=== PATIENT | male | born 1990 | race Caucasian/White ===

== ENCOUNTER 2024-11-01 13:08 | Inpatient (IN) | payer MEDICAID, SELFPAY ==
[2024-11-01] VITALS (7 sets, daily range): BP systolic 131–178; BP diastolic 97–112; PULSE 57–78; RESP 16–98; TEMP 35.6–36.6; O2SAT 94–99; BMI 27.3
--- NOTE | 2024-11-01 | XR_ITS ---
Examination: MRI brain without intravenous contrast. Date and time of exam: November 01, 2024 1414 hours INDICATIONS: CT stroke alert today, onset right-sided facial weakness numbness facial droop Technique: Multiple axial and sagittal images of the brain obtained. Siemens high-resolution 1.5 April short bore scanners utilized. Sagittal sections, T1-weighted, TR 500, TE 14, are performed. Axial sections proton-density and T2-weighted have been obtained. Inversion recovery axial images, TR 9, 260, TE 111, TI 2500. Diffusion weighted images, axial sections, TR 4800, TE 128, B value 1000 Axial sections, ADC map, TR 4800, TE 128 Findings: Enlargement of the sella turcica is not present. The optic chiasm and infundibular are not remarkable. Prepontine and interpeduncular cisterns are not enlarged. There is no localized enlargement of the medulla or sagar. Fourth ventricle and cerebellar tonsils appear normal in position. No subacute area of hemorrhage density is seen. Mass in the cerebellopontine angle region is not evident. Globes symmetrical. Orbital musculature including medial lateral rectus muscles do not exhibit abnormality. Diffusion-weighted images demonstrate no focus of restricted diffusion. Increased white matter signal not seen Mass effect upon the ventricular system is not identified. Impression: Negative for acute hemorrhage mass effect or midline shift No acute infarct No MR findings diagnostic for demyelinating disease
--- NOTE | 2024-11-01 13:10 | PC.NURSE ---
BIBA due to when patient woke up from nap at 1220 with dizziness, diaphoretic, lightheaded, and off balanced leaning to R side during per EMS. Dr. Jani Hua tele neurologist assessing patient at this time.
--- NOTE | 2024-11-01 13:11 | XR_ITS ---
Examination: AP chest single view Technique one AP portable semiupright chest single view Date and time: November 01, 2024 1515 hours INDICATIONS: Stroke alert, shortness of breath today. FINDINGS: Normal heart size. No aspiration pneumonia The osseous structures are intact IMPRESSION: Negative for aspiration pneumonia
--- NOTE | 2024-11-01 13:11 | XR_ITS ---
Examination: CT brain head without contrast. 2-D sagittal coronal reconstructions Date and time of exam:November 01, 2024 1318 hours INDICATIONS: Stroke alert, onset focal neurologic deficit, right-sided facial droop numbness slurred speech beginning 30 minutes ago CTDI: vol (mGy):49.6 DLP: (mGycm):1002 Technique: Multiple CT axial sections of the brain have been obtained, 5 mm slice thickness. Contrast has not been administered. 2-D sagittal, coronal reconstructions have been obtained Low dose protocols were performed. One or more of the following dose reduction techniques were used; automated exposure control, adjustment of the mA and/or KV according to patient size, use of iterative reconstruction technique. Findings: No significant ventricular enlargement. Suspicious for early infarct 11 mm in the right occipital lobe axial image 18 Intra-axial or extra-axial hemorrhage density is not seen. No mass effect or midline shift Basal cisterns are not remarkable. Fourth ventricle is midline. Cranial vault intact. Impression: Negative for acute hemorrhage, mass effect or midline shift Suspicious for early infarct in the right occipital lobe
--- NOTE | 2024-11-01 13:11 | XR_ITS ---
Examination: CTA carotids with intravenous contrast CTA brain, head with intravenous contrast. 2-D sagittal, coronal reconstructions. 3-D reconstructions. Exam date and time: November 01, 2024 1321 hours INDICATIONS: Stroke alert, onset right-sided facial droop numbness slurred speech beginning 30 minutes ago CTDI: vol (mGy) 37 DLP: (mGycm) 501 Technique: Multiple CTA axial brain, head carotid images post intravenous contrast injection 75 cc, Isovue-370. 2-D sagittal, coronal reconstructions. 3-D reconstructions, 3-D post processing including vascular maximum intensity projection images. Low dose protocols were performed. One or more of the following dose reduction techniques were used; automated exposure control, adjustment of the mA and/or KV according to patient size, use of iterative reconstruction technique. Findings: 4 mm left thyroid nodule No common carotid carotid bifurcation or internal carotid artery significant stenoses Dominant left vertebral artery with no significant stenoses No cerebral large vessel arterial occlusions or thrombus IMPRESSION: No significant neck arterial stenoses No cerebral large vessel arterial occlusions
--- NOTE | 2024-11-01 13:11 | EKG_ITS ---
[facility], [place] Test Date: 2024-11-01 Pat Name: KIRSTIE BLANCO Department: Room: - Gender: Male Shoe Shiner: : 1990 Requested By: Richar Chambers Order Number: [id number] Reading MD: Richar Chambers Measurements Intervals [place] Rate: 65 P: 43 SD: 170 QRS: 70 QRSD: 106 T: 62 QT: 427 QTc: 445 Interpretive Statements SINUS RHYTHM INCOMPLETE RIGHT BUNDLE BRANCH BLOCK [90+ ms QRS DURATION, TERMINAL R IN V1/V2, 40+ ms S IN I/aVL/V4/V5/V6] No previous ECG available for comparison /store/S0/[id number]/ecg/[id number].pdf
[2024-11-01 13:30] LABS: Base Excess, Venous 2 (-3-3); O2 Saturation, Venous 88 % (96-97); PCO2, Venous 42 mmHg (36-56); PO2, Venous 50 mmHg (15-58); pH, Venous 7.42 (7.33-7.66)
[2024-11-01 13:31] LABS: Lactate (Lactic Acid) 1.7 mMol/L (0.4-2.0)
[2024-11-01 13:32] LABS: Basophils % (Auto) 0 % (0-2.5); Eosinophils # (Auto) 0.2 Thou/mm3 (0.0-0.5); Eosinophils % (Auto) 2 % (0-10); Hematocrit 47.3 % (41.0-53.0); Hemoglobin 17.1 g/dL (13.5-16.0); Immature Granulocytes % (Auto) 0 % (0-0); Immature Granulocytes Auto 0.01 Thou/mm3 (0.00-0.00); Lymphocytes # (Auto) 2.6 Thou/mm3 (1.0-4.8); Lymphocytes % (Auto) 34 % (10-50); Mean Corpuscular HGB Conc 36.2 g/dl (31.0-37.0); Mean Corpuscular Hemoglobin 30.9 pg (25.0-35.0); Mean Corpuscular Volume 86 fL (80-100); Monocytes # (Auto) 0.9 Thou/mm3 (0.0-0.8); Monocytes % (Auto) 11 % (0-12); Neutrophils # (Auto) 4.2 Thou/mm3 (1.8-7.7); Neutrophils % (Auto) 53 % (37-80); Nucleated Red Blood Cell % 0 /100 WBC (0); Platelet Count 365 Thou/mm3 (140-440); RDW Standard Deviation 36.2 fL (35.1-43.9); Red Blood Count 5.53 Miln/mm3 (4.50-5.90); White Blood Count 7.9 Thou/mm3 (3.8-10.6)
--- NOTE | 2024-11-01 13:32 | EDNOTE_ITS ---
ED General RME/HPI General Chief complaint: Neuro Symptoms/Deficit Stated complaint: STROKE Time Seen by Provider: 11/01/24 13:10 Arrival date/time: 11/01/24 13:08 RME / HPI RME / HPI narrative: DR. 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 Per EMS, patient was off balance leaning to the right. Patient has right sided weakness. Last well known time is 6 AM, per tele neurologist. Related Data Previous Rx's ?Medication ?Instructions ?Recorded albuterol sulfate 90 mcg/actuation 2 puff inhalation Q 4HR PRN dyspnea 05/06/17 aerosol inhaler (ProAir HFA) #1 inh ibuprofen 600 mg tablet 600 mg PO Q6HR PRN PAIN #40 tabs 05/06/17 acetaminophen-caffeine 500 mg-65 1 tab PO Q6H PRN pain #30 tabs 01/27/23 mg tablet (Excedrin Tension Headache) ibuprofen 600 mg tablet 600 mg PO Q6H #30 tabs 01/27 naproxen 500 mg tablet 500 mg PO BID PRN pain #30 t abs 06/01/23 Allergies Allergy/AdvReac Type Severity Reaction Status Date / Time No Known Allergies Allergy Verified 01/27/23 08:30 Review of Systems Review of Systems Systems Reviewed: All systems reviewed, normal except as documented Narrative Review of Systems: Constitutional: POSITIVES: diaphoresis, light-headedness DENIES: fevers; Eyes: DENIES: loss of vision; Head/Ear/Nose: DENIES: loss of hearing. Throat: DENIES: dysphagia. Cardiovascular: DENIES: chest pain, dyspnea, or syncope. Respiratory: DENIES: shortness of breath; Gastrointestinal: POSITIVES: nausea and vomiting DENIES: rectal bleeding or melena. Genitourinary: DENIES: dysuria (painful or difficult urination); Musculoskeletal: DENIES: arthralgia (pain in a joint); Skin: DENIES: rash; Neurological: POSITIVES: vertigo, right sided weakness Psychiatric: DENIES: recent major life stressor, emotional problem, illicit drug use or abuse; Endocrinology: DENIES: weight change,; Hematologic/Lymphatic: DENIES: abnormal bruising. Allergic/Immunologic: DENIES: urticaria (hives). Past Medical History Social History SMOKING STATUS: Never smoker SUBSTANCE USE: does not use ALCOHOL: Never ED Exam Narrative Physical exam: Physical Exam: General: The vital signs were reviewed. The patient is non-toxic, in no apparent distress and appears healthy with a patent airway, no respiratory distress and has no apparent circulatory problems. Head & Scalp: Normocephalic, atraumatic. Face: Appears normal and is without lesions, deformity. Ears: Left external pinna appears normal. Right external pinna appears normal. Eyes: Patient has obvious Systane nystagmus when looking to the left and some vertical nystagmus patient gets incredibly nauseated and wants to almost vomit with minimal testing. The sclera is anicteric. No obvious photophobia. The Left and Right Orbit/Lid/Conjunctiva appears normal without swelling, discoloration or injection. Nose: The nose is without deformity, discharge or tenderness; Throat: Appears normal. The mucous membranes are pink and moist without exudates, redness or mass seen. The tongue appears normal. Neck: The neck is supple and no apparent mass or adenopathy. Chest: The chest wall is normal in size and symmetry and has no chest wall tend erness or crepitus. The patient displays normal ventilator effort without retractions, accessory muscle use and has adequate air movement bilaterally with no wheezes and no rales. Cardiovascular: Regular rate and rhythm; No murmurs, rubs, or gallops; Gastrointestinal: The abdomen appears normal. No obvious hernias or mass. The abdomen is soft and benign, non-distended, with no pain, no guarding and no rebound tenderness. Bowel sounds are present and normal sounding. No CVA tenderness. Genitourinary: Back/Spine: Normal inspection Extremities/Musculoskeletal/lymphatic: The bilateral upper and lower extremities are warm. There is no evidence of arterial insufficiency. There is no evidence of venous insufficiency/edema. The patient spontaneously moves bilateral upper and lower extremities with no pain and no limitation of movement. There is no apparent, injury or trauma. Skin: The skin is warm, dry and intact. No rashes. No petechia. No purpura. No abnormal bruising. The color is appropriate with no cyanosis. Mental status/Psychiatric: Mental status is appropriate for age. The patient has no apparent delusions, visual hallucinations, no apparent audible hallucinations. The patient has no apparent suicidal thoughts/ideation and no apparent homicidal thoughts/ideation. Neurological: The patient is awake, alert, interactive, cordial, cooperative and is oriented to name and situation. The patient follows commands and answers historical question with no impairment. There is questionable diplopia when doing various gaze maneuvers. He does not tolerate this well as the nystagmus interrupts with both horizontal and vertical component. The bilateral upper and lower extremities have normal strength, normal range of motion and normal functioning. He does not appear any focal motor deficits but he is too incapacitated by his symptoms to do any formal walking or dysmetria testing. 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 Care 11/01/24 13:11 Active Continuous Pulse Oximetry NOW Care 11/01/24 13:11 Completed EKG (ED ONLY) *Do not use* NOW Care 11/01/24 13:11 Completed In and Out Catheter NEEDED Care 11/01/24 13:11 Active Insert IV NOW Care 11/01/24 13:11 Active MRI Screening NOW Care 11/01/24 13:59 Active NIH Stroke Scale now Care 11/01/24 13:11 Active NPO NOW Care 11/01/24 13:11 Active Nurse Swallow Screen x1 Care 11/01/24 13:11 Active Consult to Neurology / Tele-Neurology Routine Cons 11/01/24 13:[address] angio stroke protocol Stat Exams 11/01/24 13:[address] stroke protocol Stat Exams 11/01/24 13:11 Completed EKG (ED Only) Stat Exams 11/01/24 13:11 Draft MR head/brain wo con Stat Exams 11/01/24 Completed XR chest 1V portable Stat Exams 11/01/24 13:11 Completed Blood Culture (Lab) Stat Lab 11/01/24 13:57 Received CBC Stat Lab 11/01/24 13:20 Completed Comprehensive Metabolic Panel Stat Lab 11/01/24 13:20 Completed Drug Screen,Urine Stat Lab 11/01/24 16:44 Completed HCG Titer if Positive Stat Lab 11/01/24 13:20 Completed Lactate (Lactic Acid) Stat Lab 11/01/24 13:20 Completed Magnesium Stat Lab 11/01/24 13:20 Completed Partial Thromboplastin Time Stat Lab 11/01/24 13:20 Completed Prothrombin Time with INR Stat Lab 11/01/24 13:20 Completed Troponin I Stat Lab 11/01/24 13:20 Completed Urinalysis Stat Lab 11/01/24 16:44 Received Urine Culture Stat Lab 11/01/24 16:44 Received Venous Blood Gas Stat Lab 11/01/24 13:20 Completed Aspirin Chew Med 11/01/24 13:57 Discontinued 81 mg PO X1 ONE Aspirin [Ecotrin] Med 11/01/24 16:01 Discontinued 81 mg PO X1 ONE Clopidogrel [Plavix] Med 11/01/24 13:57 Discontinued 300 mg PO X1 ONE LORazepam [Ativan Inj] Med 11/01/24 17:06 Discontinued 0.5 mg IVP X1 ONE Ondansetron Inj [Zofran Inj] Med 11/01/24 13:11 Active 4 mg IV Q4HR PRN Sodium Chloride 0.9% 500 ml [Ns] 500 ml Med 11/01/24 16:00 Active IV 150 mls/hr Oxygen Delivery NOW RT 11/01/24 13:11 Active Vital Signs Vital signs: Vital Signs Pulse Rate 62 11/01/24 13:11 Respiratory Rate 18 11/01/24 13:11 Discharge Plan Plan Patient Disposition: Admit Acute Care w/in Hospital Discharge Disposition comment: Hospitalist admit Dr Hill to consult Prescriptions/Referrals Prescriptions/Med Rec: No Action ibuprofen 600 MG tablet 600 mg PO Q6HR PRN (Reason: PAIN) Qty: 40 0RF albuterol sulfate [ProAir HFA] 8.5 GM HFA aerosol inhaler 2 puff Inhalation Q4HR PRN (Reason: dyspnea) Qty: 1 0RF Rx Instructions: any albuterol ok; dispense with spacer naproxen 500 mg tablet 500 mg PO BID PRN (Reason: pain) Qty: 30 0RF Excedrin Tension Headache 500-65 mg tablet 1 tab PO Q6H PRN (Reason: pain) Qty: 30 0RF ibuprofen 600 mg tablet 600 mg PO Q6H Qty: 30 0RF Referrals: Steve Ortega MD [Primary Care Provider] - In 1 week Problem List Clinical Impression: Vertigo, Intractable vomiting Patient/Caregiver Discharge Instructions Print Language: Cook Islander Stand Alone Forms: Ginny Award Info., Patient Portal Info Letter MDM Narrative [facility] hospital course: I, Frieda Zendejas, am scribing for and in the presence of Dr. Hernandez. Stroke alert was called soon after arrival patient went to the CT scanner and when getting his CTA he was vomiting more so I did give some Zofran over there. Teleneurologist later called back did not feel the patient was a tPA candidate as his symptoms were beyond the 4 and half hour window and note he got little bit different history as his last well was at 630 this morning. Nonetheless the CTA did not come back with any evidence of a LVO. CT of the brain was normal except for a questionable irregular area in the occipital raising the suspicion for a possible infarct. We had a discussion and we decided to get a stat MRI to decide if this patient should be transferred to a another facility assuming he actually has a posterior infarct. MRI was read by Dr. Kolb as negative and therefore there is no evidence of posterior infarct but on reevaluation patient is still having nystagmus and still vomiting so a second dose of Zofran was given. Fluid bolus and hydration was also initiated. Noted his temperature was noted to be slightly hypothermic. But repeat temperature was 97.6 initially was 96.0. CBC white count 7.9 hemoglobin is 17.1 possibly mildly PT/INR within normal limits. PTT was normal pH was 7.42 pCO2 of 42 electrolytes are within normal limits BUN 8 creatinine 1.2 albumin is 4.7 Upon recommendation of the teleneurologist we gave him a dose of aspirin which he vomited so it was repeated he also got 1 dose of Plavix 300 mg loading per recommendation of teleneurologist. I spoke with Dr. Hill our local neurologist who will be consulting and agreed with symptomatic relief at this time admit for further evaluation. I spoke with the hospitalist who agreed to admit. Also at 1649 hrs. we attempted to collect a urine but evidently had an accident where unable to collect it so hospitalist is aware. Clinical Information Provided by patient and EMS Medical Records Reviewed EMS Meds/Rx Considered, not Ordered None Labs/Rad/Tests considered, not Ordered None Chronic Illness/Social Conditions which may negatively complicate care or outcome(s)-explain: None or not applicable Add or document further as needed: Denies any PMHx, surgeries, daily medications, or known allergies. EKG Interpretation EKG #1: Date/time of EK11/01/24 1344 hours EKG interpretation: Interpreted by me: sinus rhythm, rate 65, no STEMI Lab Interpretation Labs: see narrative above Imaging Imaging interpretation: see narrative above Radiology reports / interpretation(s): Procedure(s): CT angio carotid w head w Accession Number(s): [id number] cc: Richar Hernandez MD; Sergo Casarez MD; Brandy William MD~ Examination: CTA carotids with intravenous contrast CTA brain, head with intravenous contrast. 2-D sagittal, coronal reconstructions. 3-D reconstructions. Exam date and time: November 01, 2024 1450 hours INDICATIONS: Paresthesias numbness weakness involving the body beginning this morning CTDI: vol (mGy) 11 DLP: (mGycm) 426 Technique: Multiple CTA axial brain, head carotid images post intravenous contrast injection 70 cc, Isovue-370. 2-D sagittal, coronal reconstructions. 3-D reconstructions, 3-D post processing including vascular maximum intensity projection images. Low dose protocols were performed. One or more of the following dose reduction techniques were used; automated exposure control, adjustment of the mA and/or KV according to patient size, use of iterative reconstruction technique. Findings: No significant common carotid carotid bifurcation or internal carotid artery stenoses Codominant vertebral arteries with no significant stenoses No cerebral large vessel occlusions or thrombus IMPRESSION: No significant neck arterial stenoses No cerebral large vessel arterial occlusions or thrombus Dictated By: Sergo Casarez MD Procedure(s): CT stroke protocol Accession Number(s): [id number] cc: Richar Hernandez MD; Sergo Casarez MD~ Examination: CT brain head without contrast. 2-D sagittal coronal reconstructions Date and time of exam:November 01, 2024 1318 hours INDICATIONS: Stroke alert, onset focal neurologic deficit, right-sided facial droop numbness slurred speech beginning 30 minutes ago CTDI: vol (mGy):49.6 DLP: (mGycm):1002 Technique: Multiple CT axial sections of the brain have been obtained, 5 mm slice thickness. Contrast has not been administered. 2-D sagittal, coronal reconstructions have been obtained Low dose protocols were performed. One or more of the following dose reduction techniques were used; automated exposure control, adjustment of the mA and/or KV according to patient size, use of iterative reconstruction technique. Findings: No significant ventricular enlargement. Suspicious for early infarct 11 mm in the right occipital lobe axial image 18 Intra-axial or extra-axial hemorrhage density is not seen. No mass effect or midline shift Basal cisterns are not remarkable. Fourth ventricle is midline. Cranial vault intact. Impression: Negative for acute hemorrhage, mass effect or midline shift Suspicious for early infarct in the right occipital lobe Dictated By: Sergo Casarez MD Signed By: <Electronically signed by Sergo Casarez MD in > 11/01/24 1324 Procedure(s): CT angio stroke protocol Accession Number(s): [id number] cc: Richar Hernandez MD; Sergo Casarez MD~ Examination: CTA carotids with intravenous contrast CTA brain, head with intravenous contrast. 2-D sagittal, coronal reconstructions. 3-D reconstructions. Exam date and time: November 01, 2024 1321 hours INDICATIONS: Stroke alert, onset right-sided facial droop numbness slurred speech beginning 30 minutes ago CTDI: vol (mGy) 37 DLP: (mGycm) 501 Technique: Multiple CTA axial brain, head carotid images post intravenous contrast injection 75 cc, Isovue-370. 2-D sagittal, coronal reconstructions. 3-D reconstructions, 3-D post processing including vascular maximum intensity projection images. Low dose protocols were performed. One or more of the following dose reduction techniques were used; automated exposure control, adjustment of the mA and/or KV according to patient size, use of iterative reconstruction technique. Findings: 4 mm left thyroid nodule No common carotid carotid bifurcation or internal carotid artery significant stenoses Dominant left vertebral artery with no significant stenoses No cerebral large vessel arterial occlusions or thrombus IMPRESSION: No significant neck arterial stenoses No cerebral large vessel arterial occlusions Dictated By: Sergo Casarez MD Procedure(s): XR chest 1V portable Accession Number(s): [id number] cc: Steve Ortega MD; Richar Hernandez MD; Sergo Casarez MD~ Examination: AP chest single view Technique one AP portable semiupright chest single view Date and time: November 01, 2024 1515 hours INDICATIONS: Stroke alert, shortness of breath today. FINDINGS: Normal heart size. No aspiration pneumonia The osseous structures are intact IMPRESSION: Negative for aspiration pneumonia Dictated By: Sergo Casarez MD Medication Administration(s) Medication Administration History Sodium Chloride (Ns) 500 mls @ 150 mls/hr IV .Q3H20M ONE Stop: 11/01/24 19:19 Last Admin: 11/01/24 16:08 Dose: 150 mls/hr Documented By: LACHO Ondansetron HCl (Ondansetron Inj 2 Mg/Ml Inj 2 Ml) 4 mg IV Q4HR PRN PRN Reason: NAUSEA OR VOMITING Stop: 12/01/24 13:10 Last Admin: 11/01/24 15:34 Dose: 4 mg Documented By: ER Discontinued Medications Aspirin (Aspirin 81 Mg Chew) 81 mg PO X1 ONE Stop: 11/01/24 13:58 Last Admin: 11/01/24 15:28 Dose: 81 mg Documented By: ER Aspirin (Aspirin Ec 81 Mg Tabec) 81 mg PO X1 ONE Stop: 11/01/24 16:02 Last Admin: 11/01/24 16:07 Dose: 81 mg Documented By: MC Clopidogrel Bisulfate (Clopidogrel Bisulfate 75 Mg Tablet) 300 mg PO X1 ONE Stop: 11/01/24 13:58 Last Admin: 11/01/24 15:37 Dose: 300 mg Documented By: ER Lorazepam (Lorazepam 2 Mg/Ml Vial) 0.5 mg IVP X1 ONE Stop: 11/01/24 17:07 Consultations/Discussions re: Management Consult #1: Date/time: 11/01/24 2:00 pm Physician, specialty, service, details: Discussed test HPI, PMHx, lab, radiology results and/or management with teleneurologist. Recommends a MRI. Consult #2: Date/time: 11/01/24 4:00 pm Physician, specialty, service, details: Discussed test HPI, PMHx, lab, radiology results and/or management with Dr. Hill. Will consult an admission to the hospitalist. Consult #3: Date/time: 11/01/24 4:10 pm Physician, specialty, service, details: Discussed test HPI, PMHx, lab, radiology results and/or management with resident Dr. Stiles working with the hospitalist. Will admit for further evaluation and management. Accepts patient for admission. Diagnosis Differential diagnosis: TIA, CVA, brain bleed Most likely dx, and/or detailed dx discussion: Vertigo Intractable vomiting Dispositon Disposition: Admit Disposition comments: Dr. Hill will be consulting hospitalist to admit.
[2024-11-01 13:50] LABS: Partial Thromboplastin Time 23.6 Seconds (22.0-36.0); Prothrombin Time 11.2 Seconds (9.0-12.2)
[2024-11-01 13:55] LABS: Alanine Aminotransferase 57 U/L (10-49); Albumin, Serum 4.7 gm/dL (3.5-5.0); Albumin/Globulin Ratio 1.7 (1.2-2.2); Alkaline Phosphatase 93 U/L (46-116); Anion Gap 11 (7-16); Aspartate Amino Transferase 34 U/L (0-34); BUN/Creatinine Ratio 7 Ratio (12-20); Bilirubin,Total 0.9 mg/dL (0.3-1.2); Blood Urea Nitrogen 8 mg/dL (9-23); Calcium 9.3 mg/dL (8.3-10.6); Calcium (Corrected) 9.3 mg/dL (8.5-10.1); Carbon Dioxide 26.4 mMol/L (20.0-31.0); Chloride 107 mMol/L (98-107); Creatinine (Component) 1.2 mg/dL (0.6-1.3); Estimated Creatinine Clearance 67.3 mL/min (>60); Globulin 2.8 gm/dL (2.3-3.5); Glucose 143 mg/dL (74-106); Magnesium 2.1 mg/dL (1.6-2.6); Osmolality,Calculated 287 (275-295); Potassium 3.9 mMol/L (3.4-5.1); Sodium 144 mMol/L (136-145); Total Protein 7.5 gm/dL (5.7-8.2); Troponin I < 0.002 ng/mL (0.0-0.045); eGFR > 60 See Note
--- NOTE | 2024-11-01 13:55 | PC.NURSE ---
Attempted to do Nurse swallow exam, patient expressed that he is very dizzy, and would like wait on exam.
--- NOTE | 2024-11-01 14:02 | ESCONSULT_ITS ---
Tele Neuro Consultation Consultation Date 11/01/24 Most Recent Vital Signs Last Vital Signs Pulse 57 L 11/01/24 13:27 Resp 18 11/01/24 13:27 BP 178/111 H 11/01/24 13:27 Pulse Ox 99 11/01/24 13:27 O2 Del Method Room Air 11/01/24 13:27 Laboratory-Coagulation Panel PT 11.2 Seconds (9.0-12.2) 11/01/24 13:20 INR 1.0 (0.9-1.3) 11/01/24 13:20 APTT 23.6 Seconds (22.0-36.0) 11/01/24 13:20 Consultation Narrative [facility] Tele[facility]urology Consult [facility] Patient Name:???Zachary Rodrigues Date of :???1990 Identification Number:??? Date of Service:???11/01/2024 13:04:00 Diagnosis:?I63.89 - Cerebrovascular accident (CVA) due to other mechanism ([facility]) Impression: ?34yo with no significant medical history presenting via EMS with speech trouble and right sided weakness. NIHSS of 4. CT head without hemorrhage, but notable for an acute right occipital infarct. No LVO or significant stenosis on CTA head/neck. Not an interventional candidate as LKW > 4.5 hours ago and based on imaging results. Case reviewed with ED staff, will obtain a stat MRI brain and if a posterior circulation stroke is confirmed will transfer to higher level of care with Neurosurgery availability. Our recommendations are outlined below. Recommendations: ? Bolus with Clopidogrel 300 mg bolus x1 and initiate dual antiplatelet therapy with Aspirin 81 mg daily and Clopidogrel 75 mg daily ? Antihypertensives PRN if Blood pressure is greater than 220/120 or there is a concern for End organ damage/contraindications for permissive HTN. If blood pressure is greater than 220/120 give labetalol PO or IV or Vasotec IV with a goal of 15% reduction in BP during the first 24 hours. ?MRI brain without contrast (stat ED study). ?Plan for transfer to higher level of care with Neurosurgery availability if MRI confirms an acute posterior circulation infarct. ?Q1H neuro checks while in ED. Sign Out: ? Discussed with Emergency Department Provider Advanced Imaging:CTA Head and Neck Completed. LVO:No Patient is not a candidate for RENAN Metrics: Last Known Well: 11/01/2024 06:00:00 Dispatch Time: 11/01/2024 13:04:00 Arrival Time: 11/01/2024 13:08:00 Initial Response Time: 11/01/2024 13:07:20Symptoms: headache, speech trouble. Initial patient interaction: 11/01/2024 13:09:42 NIHSS Assessment Completed: 11/01/2024 13:24:13Patient is not a candidate for Thrombolytic. Thrombolytic Medical Decision: 11/01/2024 13:24:14Patient was not deemed candidate for Thrombolytic because of following reasons: LKW outside 4.[address] Head: I personally reviewed all the CT images that were available to me and it showed: no acute hemorrhage. Right occipital hypodensity suspicious for acute ischemia. Primary Provider Notified of Diagnostic Impression and Management Plan on: 11/01/2024 13:44:03 History of Present Illness:Patient is a 34 year old Male. Patient was brought by EMS for symptoms of headache, speech trouble. 34yo with no significant medical history presenting via EMS with speech trouble and right sided weakness. Patient felt at his baseline when lied down around 0600 today. Patient awoke about 30 minutes [employer] with a headache, slurred speech, and feeling as if the room was spinning. EMS noted an ataxic gait, right facial droop, and dysarthria. No reported falls/trauma. Patient denies blood thinners or substance use. He developed nausea/vomiting while in CT. ? Past Medical History: ?There is no history of Hypertension ?There is no history of Stroke ?There is no history of Migraine Headaches Medications: No Anticoagulant use? No Antiplatelet use Reviewed EMR for current medications Allergies:? Reviewed Social History: Drug Use: No Family History: There is no family history of premature cerebrovascular disease pertinent to this consultation ROS : 14 Points Review of Systems was performed and was negative except mentioned in HPI. Past Surgical History: There Is No Surgical History Contributory To Today?s Visit ? Examination: BP(154/117),?Pulse(67),?Blood Glucose(112) 1A: Level of Consciousness - Alert; keenly responsive?+ 0 1B: Ask Month and Age - Both Questions Right?+ 0 1C: Blink Eyes & Squeeze Hands - Performs Both Tasks?+ 0 2: Test Horizontal Extraocular Movements - Normal?+ 0 3: Test Visual Love - No Visual Loss?+ 0 4: Test Facial Palsy (Use Grimace if Obtunded) - Minor paralysis (flat nasolabial fold, smile asymmetry)?+ 1 5A: Test Left Arm Motor Drift - No Drift for 10 Seconds?+ 0 5B: Test Right Arm Motor Drift - No Drift for 10 Seconds?+ 0 6A: Test Left Leg Motor Drift - No Drift for 5 Seconds?+ 0 6B: Test Right Leg Motor Drift - No Drift for 5 Seconds?+ 0 7: Test Limb Ataxia (FNF/Heel-Jett) - Ataxia in 1 Limb?+ 1 8: Test Sensation - Mild-Moderate Loss: Less Sharp/More Dull?+ 1 9: Test Language/Aphasia - Normal; No aphasia?+ 0 10: Test Dysarthria - Mild-Moderate Dysarthria: Slurring but can be understood?+ 1 11: Test Extinction/Inattention - No abnormality?+ 0 NIHSS Score:?4 NIHSS Free Text :?truncal ataxia Pre-Morbid Modified Hobson Scale:0 Points = No symptoms at all Spoke with :?Dr. Chambers This consult was conducted in real time using interactive audio and video technology. Patient was informed of the technology being used for this visit and agreed to proceed. Patient located in hospital and provider located at home/office setting. Patient is being evaluated for possible acute neurologic impairment and high probability of imminent or life-threatening deterioration. I spent total of 35 minutes providing care to this patient, including time for face to face visit via telemedicine, review of medical records, imaging studies and discussion of findings with providers, the patient and/or family. Dr Jani Hua [facility] For Inpatient follow-up with [facility] physician please call [facility] at . As we are not an outpatient service for any post hospital discharge needs please contact the hospital for assistance. If you have any questions for the [facility] physicians or need to reconsult for clinical or diagnostic changes please contact us via [facility] at .
[2024-11-01 14:11] LABS: HCG Titer if Positive Negative
--- NOTE | 2024-11-01 14:12 | PC.NURSE ---
Patient taken to MRI via gurney.
[2024-11-01] MEDS: ASPIRIN 81 MG CHEW PO (15:28)
[2024-11-01] MEDS: ONDANSETRON INJ 2 MG/ML INJ 2 ML 4 MG IV ×2 (15:34→22:45)
[2024-11-01] MEDS: CLOPIDOGREL BISULFATE 75 MG TABLET 300 MG PO (15:37)
--- NOTE | 2024-11-01 16:01 | PC.NURSE ---
PATIENT VERBALIZED TO DR. HERNANDEZ THAT HE VOMITED THE ASA OUT AND NEW ORDER FROM [facility] FOR ASA 81MG TABLET NOW AND NORMAL SALINE 500ML AT 150ML/HR ONCE.
[2024-11-01] MEDS: ASPIRIN EC 81 MG TABEC PO (16:07)
[2024-11-01] MEDS: SODIUM CHLORIDE 0.9% 500 ML 500 ML 150 ML IV (16:08)
[2024-11-01 17:05] LABS: Collection Type, Urine Clean Catch
[2024-11-01 17:16] LABS: Amphetamine/Methamp Scrn,U Negative (Negative); Barbiturate Screen,Urine Negative (Negative); Benzodiazepines Screen,Urine Negative (Negative); Benzoylecgonine Screen, Ur Negative (Negative); Fentanyl Screen,Urine Negative (Negative); Opiate Screen,Urine Negative (Negative); THC Screen,Urine Negative (Negative)
[2024-11-01 17:24] LABS: Bilirubin,Urine Negative (Negative); Blood,Urine Negative (Negative); Clarity,Urine Clear (Clear/Hazy); Color,Urine Lt-Yellow (Lt Yel-Yel); Glucose, Urine Negative (Negative); Ketones,Urine Negative (Negative); Leukocyte Esterase,Urine Negative (Negative); Nitrite,Urine Negative (Negative); Protein,Urine Negative (Neg - Trace); RBC,Urine 3 /hpf (0-3); Squamous Epithelial Cell,Urine < 1 /hpf (0-5); Urobilinogen,Urine Negative mg/dL (0.0-1.0); WBC,Urine 2 /hpf (0-5)
[2024-11-01 17:34] LABS: Specific Gravity,Urine 1.015 (1.001-1.035)
[2024-11-01] MEDS: LORazepam 2 MG/ML VIAL 0.5 MG IVP (17:54)
--- NOTE | 2024-11-01 17:58 | PD.RESCONSUL ---
HPI Data of Consult Primary Care Provider: Steve Ortega MD Consult Narrative Reason for consult: vertigo, balance problems, nausea, vomiting History of present illness: The patient is a 34-year-old male with previous medical history of headaches who was brought in by ambulance after he woke up at approximately 12 PM with vertigo, diaphoresis, lightheadedness, nausea, vomiting, tingling in the right side of the body, balance problems. In the ED initial blood pressure was 178/111, heart rate 62, respiratory rate 18, temperature 96, saturating well on room air. Head CT was suspicious for early infarct in the right occipital lobe, head and neck CTA was negative for significant neck arterial stenosis and cerebral large vessel occlusion. Teleneuro was consulted, NIHSS 4, there was a concern for posterior stroke. MRI brain was done, negative for acute infarct or demyelinating disease. He received clopidogrel 300 mg x 1, aspirin 81 mg x 1, lorazepam 0.5 and acetaminophen 650 mg x 1. EKG showed sinus rhythm. Labs showed WBC count 7.9, hemoglobin 17.1, hematocrit 47.3, platelets 365, INR 1.0, ABG showed pH 7.45, [id number], pO2 50, sodium 144, potassium 3.9, creatinine 1.2, EGFR more than 60, glucose 143, lactic acid 1.7, AST 34, ALT 57, troponin less than 0.002. UA was negative for signs of UTI, U tox was negative. Blood cultures and urine cultures were ordered. Reports tenderness in the neck, attributes to probably sleeping in the uncomfortable position. Neurology was consulted for acute onset vertigo, balance impairment, stroke rule out. Social history: Denies smoking, alcohol use Allergies: Denies medication allergies cc:: cc: Review of Systems Review of Systems Systems Reviewed: All systems reviewed, normal except as documented Past Medical History Social History SMOKING STATUS: Never smoker SUBSTANCE USE: does not use ALCOHOL: Never Exam Vital Signs Temp Pulse Resp BP Pulse Ox O2 Del Method 97.4 F 71 18 148/104 H 98 Room Air 11/01/24 17:00 11/01/24 17:00 11/01/24 15:15 11/01/24 17:00 11/01/24 17:00 11/01/24 17:00 Narrative Exam Gen: Well-developed and well-nourished. HEENT: NCAT, PERRLA, EOMI, MMM, anicteric conjunctivae. CVS: normal S1 and S2. RRR. No M/R/G. Resp: CTA B/L. No rhonchi, rales, crackles or wheezing. Abd: soft, non-tender, non-distended. BS+ in all 4 quadrants. MSK: Good ROM in BUE & BLE. No edema or rash. Neuro: Alert, awake and oriented x3. Cranial nerves: rotatory nystagmus. Speech and language: Normal with no dysarthria or dysphasia. Motor system: Tone and bulk: Normal: Strength: 5 out of 5 in all 4 extremities; No pronator drift noted. Deep tendon reflexes: 2+ bilaterally symmetrical. Plantar reflex: Downgoing bilaterally. Sensory system: Intact to all modalities of sensation bilaterally. Coordination: Intact to [id number] and pkpc-qzap-jlie test bilaterally. No ataxia, no dysmetria, or dysdiadochokinesia noted. No intention tremors noted. Patient is leaning to the left when sitting up. Gait: Not tested due to vertigo. Toe, heel, tandem walk not tested. Romberg: Not tested due to vertigo. No signs of meningeal irritation noted. Psych: appropriate mood and affect. Results Labs 11/02/24 04:24 11/02/24 04:24 Labs: Short CBC 11/01/24 Range/Units 13:20 WBC 7.9 (3.8-10.6) Thou/mm3 Hgb 17.1 H (13.5-16.0) g/dL Hct 47.3 (41.0-53.0) % Plt Count 365 (140-440) Thou/mm3 BMP 11/01/24 13:20 Sodium 144 Potassium 3.9 Chloride 107 Carbon Dioxide 26.4 BUN 8 L Creatinine 1.2 Glucose 143 H Calcium 9.3 Cardiac Enzymes 11/01/24 Range/Units 13:20 Troponin I < 0.002 (0.0-0.045) ng/mL Liver Function 11/01/24 Range/Units 13:20 Total Bilirubin 0.9 (0.3-1.2) mg/dL AST 34 (0-34) U/L ALT 57 H (10-49) U/L Alkaline Phosphatase 93 (46-116) U/L Albumin 4.7 (3.5-5.0) gm/dL Urine 11/01/24 Range/Units 16:44 Urine Color Lt-Yellow (Lt Yel-Yel) Urine Clarity Clear (Clear/Hazy) Urine pH 8.0 H (5.0-7.0) Ur Specific [place] 1.015 (1.001-1.035) Urine Protein Negative (Neg - Trace) Urine Glucose (UA) Negative (Negative) ABG Interpretation ABG results: 11/01/24 13:20 VBG pH 7.42 VBG pCO2 42 VBG pO2 50 VBG Base Excess 2 Quality Measures Quality Measures VTE prophylaxis Medications Home Medications and Allergies Allergies Allergy/AdvReac Type Severity Reaction Status Date / Time No Known Allergies Allergy Verified 01/27/23 08:30 Visit Medications Acetaminophen (Acetaminophen 325 Mg Tablet) 650 mg PO Q6H PRN PRN Reason: Fever >101.5 Stop: 12/01/24 17:50 Aspirin (Aspirin Ec 81 Mg Tabec) 81 mg PO QDAY TONG Stop: 12/02/24 08:59 Clopidogrel Bisulfate (Clopidogrel Bisulfate 75 Mg Tablet) 75 mg PO QDAY [facility] Stop: 12/02/24 08:59 Sodium Chloride (Ns) 500 mls @ 150 mls/hr IV .Q3H20M ONE Stop: 11/01/24 19:19 Last Admin: 11/01/24 16:08 Dose: 150 mls/hr Lactated Ringer's (Lactated Ringers) 1,000 mls @ 75 mls/hr IV .[id number] [facility] Stop: 11/02/24 07:19 Promethazine HCl 12.5 mg/ (Sodium Chloride) 50.5 mls @ 2.5 mls/min IV Q6HR PRN PRN Reason: NAUSEA OR VOMITING Stop: 12/01/24 17:52 Ondansetron HCl (Ondansetron Inj 2 Mg/Ml Inj 2 Ml) 4 mg IV Q6H PRN; Protocol PRN Reason: NAUSEA OR VOMITING Stop: 12/01/24 17:50 Oxycodone/Acetaminophen (Oxycodone/Apap 5/325 Tablet) 1 tab PO Q6H PRN PRN Reason: PAIN SCALE 4-6 (Moderate Stop: 11/06/24 17:50 Discontinued Medications Aspirin (Aspirin 81 Mg Chew) 81 mg PO X1 ONE Stop: 11/01/24 13:58 Last Admin: 11/01/24 15:28 Dose: 81 mg Aspirin (Aspirin Ec 81 Mg Tabec) 81 mg PO X1 ONE Stop: 11/01/24 16:02 Last Admin: 11/01/24 16:07 Dose: 81 mg Clopidogrel Bisulfate (Clopidogrel Bisulfate 75 Mg Tablet) 300 mg PO X1 ONE Stop: 11/01/24 13:58 Last Admin: 11/01/24 15:37 Dose: 300 mg Lorazepam (Lorazepam 2 Mg/Ml Vial) 0.5 mg IVP X1 ONE Stop: 11/01/24 17:07 Last Admin: 11/01/24 17:54 Dose: 0.5 mg Ondansetron HCl (Ondansetron Inj 2 Mg/Ml Inj 2 Ml) 4 mg IV Q4HR PRN PRN Reason: NAUSEA OR VOMITING Stop: 12/01/24 13:10 Last Admin: 11/01/24 15:34 Dose: 4 mg Assessment & Plan Plan The patient is a 34-year-old male with previous medical history of headaches who was brought in by ambulance after he woke up at approximately 12 PM with vertigo, diaphoresis, lightheadedness, nausea, vomiting, tingling in the right side of the body, balance problems. #Vertigo #Nausea #Vomiting #Nystagmus #Stroke rule out Ddx: acute stroke vs BPPV vs vestibular neuronitis Patient reports his symptoms started at 12 pm. Per other documentation, LKN 6 00 AM. Plan: - telemetry - repeat MRI brain, head and neck MRA - continue with aspirin 81 mg qday - consider consulting ENT if work-up negative - risk stratification: lipid panel, TSH, A1c - permissive hypertension - physical therapy - speech therapy Plan of care discussed with attending Dr. Liz Prieto MD, PGY 1. Attending Provider Attestation/Addendum I personally have seen and examined the patient at the bedside and I agree with resident's findings, assessment and plan of care. Will continue with the current management and will fu with repeat MRI brain to evaluate for right medullary infarction. Continue with symptomatic therapy with meclizine and Zofran.
[2024-11-01] MEDS: ACETAMINOPHEN 325 MG TABLET 650 MG PO (18:05)
--- NOTE | 2024-11-01 18:32 | XR_ITS ---
Examination: Abdomen sonogram, Limited Date and time of exam: November 01, 2024 2115 hours INDICATIONS: Elevated liver function tests on limited examination today TECHNIQUE: Vila scale sonographic images abdomen FINDINGS: Normal gallbladder Normal common bile duct 0.3 cm Pancreatic head 2.5 cm Liver 12.7 cm fatty liver new focal liver lesions Normal hepatopedal portal venous flow Patent IVC IMPRESSION: Normal gallbladder Liver normal size fatty liver
--- NOTE | 2024-11-01 18:34 | ESHP_ITS ---
Documentation for date of: 11/01/24 HPI History of Present Illness Chief complaint: Dizziness and double vision History of present illness: HPI:A 34-year-old male patient with no past medical history presented to the ED due to acute onset of dizziness, double vision, and right-sided weakness. Patient reported that he woke up today at 12:30 PM with severe dizziness, double vision, right-sided weakness associated with ear fullness. He also reported that he has difficulty expectorating his sputum as he was having mild cough. Patient also reported nausea and vomiting associated with symptoms. His dizziness improves mildly whenever he closes his eye however it does not disappear completely. On questioning patient reported that he feels ear fullness however no decrease in hearing, no tinnitus. 2 weeks ago patient reported that he had some flulike symptoms such as runny nose, mild cough, sneezing. He reported that it could be allergies however he has also family history with similar flulike symptoms. Patient denied any similar episodes in the past such as dizziness or nystagmus or double vision. And denied any previous weakness. On review of other system patient reported that he has some episodes of headaches however he denied any such symptoms in the past. Home medications: No home medications ED course:At presentation patient was found to have blood pressure of 178/111, pulse rate of 62, respirate rate of 18, temperature 96, O2 saturation 99 on room air his labs was only significant for hemoglobin of 17.1 U-Tox was negative initial CT scan was suspicious for early infarct of the right occipital lobe and was negative for any hemorrhage, however brain MRI was negative for any infarct. Head and neck CTA was negative for any significant arterial stenosis or large vessel occlusion. Consulted the teleneurologist was ordered they recommended to admit the patient for stroke workup and continue the patient on aspirin and Plavix. At the ED patient was given 2 aspirin 81, Zofran, Plavix 300 and was given IV fluids. PMH: Headaches Social hx: Alcohol: Denied Tobacco: Denied Illicit drugs: Denied Allergies: No known allergies Review of Systems Review of Systems Systems Reviewed: All systems reviewed, normal except as documented Exam Vital Signs Temp Pulse Resp BP Pulse Ox O2 Del Method 97.7 F 71 18 134/97 H 98 Room Air 11/01/24 18:00 11/01/24 18:00 11/01/24 18:00 11/01/24 18:00 11/01/24 18:00 11/01/24 18:00 Narrative Exam GEN: AOx3, able to speak full sentences HEENT: NC/AC, PERRLA, oral cavity examination showed infected tooth on the right side, surrounded by mild discharge. No lymph node enlargement, no redness, no swelling or lump. 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 No slurred speech. Results: Labs 11/01/24 13:20 11/01/24 13:20 Labs: Short CBC 11/01/24 Range/Units 13:20 WBC 7.9 (3.8-10.6) Thou/mm3 Hgb 17.1 H (13.5-16.0) g/dL Hct 47.3 (41.0-53.0) % Plt Count 365 (140-440) Thou/mm3 BMP 11/01/24 13:20 Sodium 144 Potassium 3.9 Chloride 107 Carbon Dioxide 26.4 BUN 8 L Creatinine 1.2 Glucose 143 H Calcium 9.3 Cardiac Enzymes 11/01/24 Range/Units 13:20 Troponin I < 0.002 (0.0-0.045) ng/mL Liver Function 11/01/24 Range/Units 13:20 Total Bilirubin 0.9 (0.3-1.2) mg/dL AST 34 (0-34) U/L ALT 57 H (10-49) U/L Alkaline Phosphatase 93 (46-116) U/L Albumin 4.7 (3.5-5.0) gm/dL Urine 11/01/24 Range/Units 16:44 Urine Color Lt-Yellow (Lt Yel-Yel) Urine Clarity Clear (Clear/Hazy) Urine pH 8.0 H (5.0-7.0) Ur Specific [place] 1.015 (1.001-1.035) Urine Protein Negative (Neg - Trace) Urine Glucose (UA) Negative (Negative) ABG Interpretation ABG results: 11/01/24 13:20 VBG pH 7.42 VBG pCO2 42 VBG pO2 50 VBG Base Excess 2 Quality Measures Quality Measures none Medications Home Medications and Allergies Allergies Allergy/AdvReac Type Severity Reaction Status Date / Time No Known Allergies Allergy Verified 01/27/23 08:30 Visit Medications Acetaminophen (Acetaminophen 325 Mg Tablet) 650 mg PO Q6H PRN PRN Reason: Fever >101.5 Stop: 12/01/24 17:50 Last Admin: 11/01/24 18:05 Dose: 650 mg Aspirin (Aspirin Ec 81 Mg Tabec) 81 mg PO QDAY [facility] Stop: 12/02/24 08:59 Clopidogrel Bisulfate (Clopidogrel Bisulfate 75 Mg Tablet) 75 mg PO QDAY [facility] Stop: 12/02/24 08:59 Sodium Chloride (Ns) 500 mls @ 150 mls/hr IV .Q3H20M ONE Stop: 11/01/24 19:19 Last Admin: 11/01/24 16:08 Dose: 150 mls/hr Lactated Ringer's (Lactated Ringers) 1,000 mls @ 75 mls/hr IV .[id number] [facility] Stop: 11/02/24 07:19 Promethazine HCl 12.5 mg/ (Sodium Chloride) 50.5 mls @ 2.5 mls/min IV Q6HR PRN PRN Reason: NAUSEA OR VOMITING Stop: 12/01/24 17:52 Ondansetron HCl (Ondansetron Inj 2 Mg/Ml Inj 2 Ml) 4 mg IV Q6H PRN; Protocol PRN Reason: NAUSEA OR VOMITING Stop: 12/01/24 17:50 Oxycodone/Acetaminophen (Oxycodone/Apap 5/325 Tablet) 1 tab PO Q6H PRN PRN Reason: PAIN SCALE 4-6 (Moderate Stop: 11/06/24 17:50 Discontinued Medications Aspirin (Aspirin 81 Mg Chew) 81 mg PO X1 ONE Stop: 11/01/24 13:58 Last Admin: 11/01/24 15:28 Dose: 81 mg Aspirin (Aspirin Ec 81 Mg Tabec) 81 mg PO X1 ONE Stop: 11/01/24 16:02 Last Admin: 11/01/24 16:07 Dose: 81 mg Clopidogrel Bisulfate (Clopidogrel Bisulfate 75 Mg Tablet) 300 mg PO X1 ONE Stop: 11/01/24 13:58 Last Admin: 11/01/24 15:37 Dose: 300 mg Lorazepam (Lorazepam 2 Mg/Ml Vial) 0.5 mg IVP X1 ONE Stop: 11/01/24 17:07 Last Admin: 11/01/24 17:54 Dose: 0.5 mg Ondansetron HCl (Ondansetron Inj 2 Mg/Ml Inj 2 Ml) 4 mg IV Q4HR PRN PRN Reason: NAUSEA OR VOMITING Stop: 12/01/24 13:10 Last Admin: 11/01/24 15:34 Dose: 4 mg Assessment & Plan Plan Summary:A 34-year-old male patient with no past medical history presented to the ED due to acute onset of dizziness, double vision, and right-sided weakness. Patient reported that he woke up today at 12:30 PM with severe dizziness, double vision, right-sided weakness associated with ear fullness. Patient was admitted for stroke workup and neurology consultation. Assessment and plan #Stroke rule out #Acute right-sided weakness #nystagmus #brainstem migraine rule out #Infected tooth on the right side dizziness, double vision, and right-sided weakness. Patient reported that he woke up today at 12:30 PM with severe dizziness, double vision, right-sided weakness associated with ear fullness. On examination patient was found to have Mild facial droop, positive nystagmus, tongue deviation, slight weakness in the right upper extremity. No slurred speech. Patient also found to have infected tooth in the right side area. initial CT scan was suspicious for early infarct of the right occipital lobe and was negative for any hemorrhage, however brain MRI was negative for any infarct. Head and neck CTA was negative for any significant arterial stenosis or large vessel occlusion. We believe that the patient might have atypical migraine vestibular neuritis versus some sort of infection that spread from his infected to to to the intracranial region. Plan ? Admit patient to telemetry ? Neurologist consultation to Dr. Hill was ordered, follow-up on recommendations ? Continue the patient on aspirin 81 mg daily ? Continue the patient on Plavix 75 mg p.o. daily ? Continue patient on Zofran 4 mg every 6 hours as needed ? Start patient on promethazine every 6 hours as needed for the vomiting ? Physical therapy evaluation ? Speech therapy evaluation ? Bedside nursing swallow eval ? Neurochecks every 4 hours ? Seizures precautions ? Bedrest ? Will consider further imaging while the need of antibiotics for his infected tooth abscess f physical exam with possibles'spread of infection #Polycythemia nonspecified Patient consistently has hemoglobin level above 16. No history of smoking. Plan ? Sent for Nicola 2 mutation ?Erythropoietin level ? Abdominal ultrasound ? Urine analysis Hospital Maintenance: FEN: Regular diet after passes bedside swallow eval DVT ppx: Not indicated GI ppx: Protonix IV lines: PIV Vanessa: None Code status: Full code Dispo: Telemetry pending neurologist recommendations - Patient's plan and care discussed with my attending, Dr. Bryan Dockery MD Internal Medicine PGY-2 Attending Provider Attestation/Addendum After examination of the patient and review of the clinical data I feel that this patient needs admission to the hospital for further treatment/evaluation. I have discussed and was present for the essential components of the history, physical examination, diagnosis, and treatment plan with the resident. I agree with the patient's care as documented by the resident and amended herein by me. Edwin Adams DO. Patient seen and evaluated in the ED patient is a 34-year-old male with history of headaches, migraines per patient, presented to the ED for headache, nausea and vomiting and dizziness as well as right sided facial droop and weakness. The patient states he was playing videogames last night everything was fine however he woke up this morning with the symptoms. He has never had these before however has had severe headaches in the past. In the ED, vital signs are stable, patient afebrile patient was noted to have a hemoglobin of 17.1 and appears to be demonstrating erythrocytosis since 2022. CMP only significant for an elevated ALT of 57. CTA head was unremarkable, CTA head was initially suggestive of a possible right occipital infarct however MRI brain was negative. Chest x-ray was also unremarkable. The patient was given aspirin, a fluid bolus, Plavix and Zofran in the ED. Patient admitted to telemetry for strokelike symptoms, may be secondary to TIA versus migraine versus BPPV although less likely. In-house neurology has been consulted, will continue aspirin and Plavix for now, permissive hypertension. Considering the patient's history of polycythemia, I did order a primary and secondary workup for that to include liver ultrasound considering his elevated ALT and to assess for any splenomegaly, EPO level, JAK2 which will be a send out, and urinalysis to assess for any microhematuria. Patient does states he is interested in following up with the [facility] which we can review the send out labs, he has never been worked up for polycythemia which may be a good idea considering his symptoms. Will continue to monitor closely, appreciate specialist recommendations. Although this document has been carefully reviewed, there may still be some phonetic and other typographical errors. These errors are purely grammatical due to imperfections in the software program and should not be construed in any way to compromise the substance of the patient's medical care during this visit.
--- NOTE | 2024-11-01 18:53 | XR_ITS ---
Examination: Ultrasound spleen TECHNIQUE: Sonographic images spleen Date and time: November 01, 2024 2110 hours INDICATIONS: Urethral cytosis on laboratory examination this week FINDINGS: Spleen 9.3 cm No splenic defects IMPRESSION: Normal study
[2024-11-01] MEDS: RINGERS LACTATED 1000 ML 1,000 ML 75 ML IV (19:42)
[2024-11-02] VITALS (7 sets, daily range): BP systolic 121–144; BP diastolic 80–102; PULSE 71–93; RESP 11–21; TEMP 36.1–37.1; O2SAT 95–99; BMI 13.0
--- NOTE | 2024-11-02 | XR_ITS ---
Examinations: MRI Brain without intravenous contrast. MRI brain with intravenous contrast MRA brain with intravenous contrast. MRA brain without intravenous contrast MRA neck with intravenous contrast Date and time of exam: November 02, 2024 0829 hours Indications, sudden onset vertigo diaphoresis lightheadedness nausea vomiting right-sided body weakness, stroke alert CT study November 01, 2024 Technique: Multiple axial and sagittal images of the brain have been obtained Siemens high-resolution 1.5 April short bore scanner is utilized. Sagittal sections, T1-weighted, TR 500, TE 14 Axial sections proton density and T2-weighted, TR 3,000, TE 34, TR 3,000, TE 91 Inversion recovery axial images, TR 9,260, TE 111, TI 2,500 Diffusion weighted images, axial sections, TR 4,800, TE 128, B value 1,000 Axial sections, ADC map, TR 4,800, TE 128. Contrast images have been obtained post intravenous 20 cc Gadolinium. T1-weighted axial and coronal images post contrast have been obtained. Angiographic images of neck and brain are obtained pre and post contrast. 3-D post processing performed, including brain, extracranial neck arterial maximum intensity projections Findings: Sellaturcica is not enlarged. The optic chiasm and infundibular stalk are not remarkable. Prepontine and interpeduncular cisterns are not enlarged. No localized enlargement of the medulla or sagar. Fourth ventricle and cerebellar tonsils normal in position. Subacute hemorrhage is not seen. Fourth ventricle is midline. Mass in the cerebellopontine angle region is not evident. 7th and 8th nerve complexes exhibits symmetry. Globes are symmetrical with no retro-orbital mass. Increased white matter signal evident in the right and stem medullary level Diffusion-weighted images demonstrate7 mm focus restricted diffusion right brainstem medulla level. Mass-effect upon the ventricular system is not identified. Abnormal contrast enhancement is not seen. MRA brain carotid images no carotid stenoses, no large vessel cerebral occlusions Impression: 7 mm acute infarct right brainstem, medulla level
[2024-11-02] MEDS: MECLIZINE HCL 25 MG TABLET PO ×2 (01:11→19:36)
[2024-11-02 05:38] LABS: Misc Send Out* See Sep Rpt
[2024-11-02 05:46] LABS: Basophils % (Auto) 0 % (0-2.5); Eosinophils % (Auto) 0 % (0-10); Hematocrit 45.1 % (41.0-53.0); Hemoglobin 16.1 g/dL (13.5-16.0); Immature Granulocytes % (Auto) 0 % (0-0); Immature Granulocytes Auto 0.03 Thou/mm3 (0.00-0.00); Lymphocytes % (Auto) 10 % (10-50); Mean Corpuscular HGB Conc 35.7 g/dl (31.0-37.0); Mean Corpuscular Hemoglobin 30.7 pg (25.0-35.0); Mean Corpuscular Volume 86 fL (80-100); Monocytes # (Auto) 0.7 Thou/mm3 (0.0-0.8); Monocytes % (Auto) 6 % (0-12); Neutrophils # (Auto) 8.7 Thou/mm3 (1.8-7.7); Neutrophils % (Auto) 84 % (37-80); Nucleated Red Blood Cell % 0 /100 WBC (0); Platelet Count 309 Thou/mm3 (140-440); RDW Standard Deviation 36.1 fL (35.1-43.9); Red Blood Count 5.25 Miln/mm3 (4.50-5.90); White Blood Count 10.4 Thou/mm3 (3.8-10.6)
[2024-11-02 06:00] LABS: Partial Thromboplastin Time 26.8 Seconds (22.0-36.0); Prothrombin Time 11.3 Seconds (9.0-12.2)
[2024-11-02 06:18] LABS: Alanine Aminotransferase 48 U/L (10-49); Albumin, Serum 4.5 gm/dL (3.5-5.0); Albumin/Globulin Ratio 1.7 (1.2-2.2); Alkaline Phosphatase 88 U/L (46-116); Anion Gap 12 (7-16); Aspartate Amino Transferase 25 U/L (0-34); BUN/Creatinine Ratio 7 Ratio (12-20); Bilirubin,Total 0.6 mg/dL (0.3-1.2); Blood Urea Nitrogen 8 mg/dL (9-23); Calcium 9.2 mg/dL (8.3-10.6); Calcium (Corrected) 9.2 mg/dL (8.5-10.1); Carbon Dioxide 25.8 mMol/L (20.0-31.0); Chloride 101 mMol/L (98-107); Creatinine (Component) 1.1 mg/dL (0.6-1.3); Estimated Creatinine Clearance 73.5 mL/min (>60); Globulin 2.6 gm/dL (2.3-3.5); Glucose 103 mg/dL (74-106); Osmolality,Calculated 275 (275-295); Phosphorous 3.1 mg/dL (2.4-5.1); Potassium 3.7 mMol/L (3.4-5.1); Sodium 139 mMol/L (136-145); Thyroid Stimulating Hormone 0.57 uIU/mL (0.55-4.78); Total Protein 7.1 gm/dL (5.7-8.2); eGFR > 60 See Note
--- NOTE | 2024-11-02 07:51 | ESPR_ITS ---
Documentation for date of: 11/02/24 Subjective Subjective Interval history: Patient was seen and examined at bedside this AM. No acute exents overnight. Patient tolerating diet, adequate urine output and mentation is at baseline. Patient still complains of blurry vision in his right eye, double vision, dizziness and right arm paresthesia. Patient endorses that his right tooth cavity has been chronic for the past year and has intermittent drainage of pus. It currently is painful. Will start him on prophylactic Augmentin 875 p.o. twice daily until he sees a dentist We will order maxillofacial CT to rule out abscess MR brain W/W, MRA brain W, corrected W completed on 11/02/2024 findings include: 7 mm acute infarct right brainstem, medulla level. Currently at this time there is no indication for transfer as per neurology recommendations. Patient scheduled for EMILY to assess for any structural defects. Exam Vital Signs Temp Pulse Resp BP Pulse Ox O2 Del Method 97.2 F 72 19 134/102 H 97 Room Air 11/02/24 04:00 11/02/24 04:00 11/02/24 04:00 11/02/24 04:00 11/02/24 04:00 11/02/24 04:00 Narrative Exam GEN: AOx3, able to speak full sentences HEENT: NC/AC, PERRLA, oral cavity examination showed infected tooth on the right side, surrounded by mild discharge. No lymph node enlargement, no redness, no swelling or lump. 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 No slurred speech. 1A: Level of Consciousness -alert +0 1B: Ask Month and Age -both questions correct +0 1C: Blink Eyes & Squeeze Hands - Performs Both Tasks + 0 2: Test Horizontal Extraocular Movements - Normal + 0 3: Test Visual Love -no visual loss +0 4: Test Facial Palsy (Use Grimace if Obtunded) -minor paralysis +1 5A: Test Left Arm Motor Drift - No Drift for 10 Seconds + 0 5B: Test Right Arm Motor Drift - No Drift for 10 Seconds + 0 6A: Test Left Leg Motor Drift - No Drift for 5 Seconds + 0 6B: Test Right Leg Motor Drift - No Drift for 5 Seconds + 0 7: Test Limb Ataxia (FNF/Heel-Jett) - No Ataxia + 0 8: Test Sensation -mild to moderate +1 9: Test Language/Aphasia -no aphasia 0 10: Test Dysarthria - Normal + 0 11: Test Extinction/Inattention - No abnormality + 0 NIHSS Score: 2 Objective Labs 11/02/24 04:24 11/02/24 04:24 Labs: Laboratory Results - last 24 hr 11/01/24 11/01/24 11/02/24 13:20 16:44 04:24 WBC 7.9 10.4 RBC 5.53 5.25 Hgb 17.1 H 16.1 H Hct 47.3 45.1 MCV 86 86 MCH 30.9 30.7 MCHC 36.2 35.7 RDW Std Deviation 36.2 36.1 Plt Count 365 309 D Neut % (Auto) 53 84 H Lymph % (Auto) 34 10 Winston % (Auto) 11 6 Eos % (Auto) 2 0 Baso % (Auto) 0 0 Neut # (Auto) 4.2 8.7 H Lymph # (Auto) 2.6 1.0 Winston # (Auto) 0.9 H 0.7 Eos # (Auto) 0.2 0.0 Baso # (Auto) 0.0 0.0 Immature Gran # (Auto) 0.01 H 0.03 H Absolute Nucleated RBC 0.00 0.00 Immature Gran % 0 0 Nucleated RBC % 0 0 PT 11.2 11.3 INR 1.0 1.0 APTT 23.6 26.8 VBG pH 7.42 VBG pCO2 42 VBG pO2 50 VBG O2 Sat (Tyler) 88 L VBG Base Excess 2 Sodium 144 139 Potassium 3.9 3.7 Chloride 107 101 Carbon Dioxide 26.4 25.8 Anion Gap 11 12 BUN 8 L 8 L Creatinine 1.2 1.1 Estim Creat Clear Calc 67.3 73.5 eGFR > 60 > 60 BUN/Creatinine Ratio 7 L 7 L Glucose 143 H 103 Calculated Osmolality 287 275 Lactic Acid 1.7 Calcium 9.3 9.2 Corrected Calcium 9.3 9.2 Phosphorus 3.1 Magnesium 2.1 2.0 Total Bilirubin 0.9 0.6 AST 34 25 ALT 57 H 48 Alkaline Phosphatase 93 88 Troponin I < 0.002 Total Protein 7.5 7.1 Albumin 4.7 4.5 Globulin 2.8 2.6 Albumin/Globulin Ratio 1.7 1.7 TSH 0.57 Ur Collection Type Clean Catch Urine Color Lt-Yellow Urine Clarity Clear Urine pH 8.0 H Ur Specific [place] 1.015 Urine Protein Negative Urine Glucose (UA) Negative Urine Ketones Negative Urine Blood Negative Urine Nitrite Negative Urine Bilirubin Negative Urine Urobilinogen (Auto) Negative Ur Leukocyte Esterase Negative Urine RBC 3 Urine WBC 2 Ur Squamous Epith Cells < 1 Urine Bacteria None Urine Opiates Screen Negative Urine Fentanyl Screen Negative Ur Barbiturates Screen Negative U Amphetamin/Meth Scrn Negative U Benzodiazepines Scrn Negative U Cocaine Metab Screen Negative U Marijuana (THC) Screen Negative HCG (Qual) Negative ABG Interpretation ABG results: 11/01/24 13:20 VBG pH 7.42 VBG pCO2 42 VBG pO2 50 VBG Base Excess 2 Quality Measures Quality Measures VTE prophylaxis Assessment & Plan Assessment Current Active Medications: Generic Name Dose Route Start Last Admin Trade Name Freq PRN Reason Stop Dose Admin Acetaminophen 650 mg 11/01/24 17:51 11/01/24 18:05 Acetaminophen 325 Mg Tablet PO 12/01/24 17:50 650 mg Q6H PRN Administration Fever >101.5 Aspirin 81 mg 11/02/24 09:00 Aspirin Ec 81 Mg Tabec PO 12/02/24 08:59 QDAY TONG Promethazine HCl 12.5 mg/ 50.5 mls @ 2.5 mls/min 11/01/24 17:53 Sodium Chloride IV 12/01/24 17:52 Q6HR PRN NAUSEA OR VOMITING Ondansetron HCl 4 mg 11/01/24 17:51 11/01/24 22:45 Ondansetron Inj 2 Mg/Ml Inj 2 Ml IV 12/01/24 17:50 4 mg Q6H PRN Administration NAUSEA OR VOMITING Protocol Oxycodone/Acetaminophen 1 tab 11/01/24 17:51 Oxycodone/Apap 5/325 Tablet PO 11/06/24 17:50 Q6H PRN PAIN SCALE 4-6 (Moderate Plan A 34-year-old male patient with no past medical history presented to the ED due to acute onset of dizziness, double vision, and right-sided weakness. Patient reported that he woke up today at 12:30 PM with severe dizziness, double vision, right-sided weakness associated with ear fullness. Patient was admitted for stroke workup and neurology consultation. Acute 7 mm brainstem stroke at medulla?improving Acute right-sided weakness Nystagmus Infected tooth on the right side Presented with dizziness, double vision, and right-sided weakness. Patient reported that he woke up today at 12:30 PM with severe dizziness, double vision, right-sided weakness associated with ear fullness. On examination patient was found to have Mild facial droop, positive nystagmus, tongue deviation, slight weakness in the right upper extremity. No slurred speech. Patient also found to have infected tooth in the right side area. initial CT scan was suspicious for early infarct of the right occipital lobe and was negative for any hemorrhage, however brain MRI was negative for any infarct. Head and neck CTA was negative for any significant arterial stenosis or large vessel occlusion. MR brain W/W, MRA brain W, corrected W completed on 11/02/2024 findings include: 7 mm acute infarct right brainstem, medulla level. Currently at this time there is no indication for transfer as per neurology recommendations. Patient scheduled for EMILY to assess for any structural defects. Plan ? Continue the patient on aspirin 81 mg daily ? Continue the patient on Plavix 75 mg p.o. daily ? Continue patient on Zofran 4 mg every 6 hours as needed ? Continue promethazine every 6 hours as needed for the vomiting ? Started on meclizine 25 Mg p.o. 3 times daily as needed as per neurology recommendations ? Physical therapy evaluation ? Speech therapy evaluation ? Bedside nursing swallow eval ? Neurochecks every 4 hours ? Seizures precautions ? Bedrest - Maxillofacial CT ordered to rule out abscess ? Transesophageal echocardiogram ordered to assess for structural defects ? Automatic Print Developer, Dr. Mc consulted. Appreciate recommendations ? Neurologist, Dr. Hill was consulted. Appreciate recommendations Polycythemia nonspecified?improved Patient consistently has hemoglobin level above 16. No history of smoking. Liver and spleen ultrasound showed no abnormalities. Plan: ? Pending JAK2 and EPO levels. Follow-up outpatient for results Health maintenance: Disposition: Pending EMILY. PT evaluation for possible SNF placement Diet: Regular Lines: pIVs GI Prophylaxis: Not indicated Thrombo Prophylaxis: None Code status: FULL CODE plan of care discussed with Attending Dr. Bryan Duran MD PGY 1 Disclaimer: This note was dictated by speech recognition. Minor errors in car oiler may be present due to voice recognition software. Attending Provider Attestation/Addendum I have discussed and was present for the essential components of the history, physical examination, diagnosis, and treatment plan with the resident. I agree with the patient's care as documented by the resident and amended herein by me. Edwin Adams, DO. Patient seen and evaluated this AM. No acute events overnight, patient did work with physical therapy this morning and still experiencing vertigo. Bilateral upper extremity strength appears to be 5/5 today which is an improvement, [id number] is also improved on the right hand, shoulder shrug seems a bit better this morning demonstrating 5 out of 5 strength, there is some tongue deviation to the right and there does seem to be some right facial droop still present as well as horizontal nystagmus. Significant labs include a hemoglobin of 16, CMP largely unremarkable, A1c within normal limits, LDL 143, HDL 35, TSH WNL. MRI brain today did unfortunately demonstrate a 7 mm right brain stranding infarct at the level of the medulla. Of note, I did examine the patient's right lower molars today and it does appear he has a severe cavity one of the molars, no pus or abscess was seen however he does state this is chronic, it has been present for over a year, sometimes it does drain pus he states but not recently, he has not seen a dentist for this. As of now, per neurology recommendations, the patient will be continued on aspirin and Plavix, cardiology has also been consulted for EMILY however we will proceed with a TTE first and decide. The patient did come in with an elevated hemoglobin, unclear as the cause of the erythrocytosis, hypercoagulability workup pending, polycythemia vera workup labs have been ordered as well. It is possible considering the chronicity of the patient's tooth infection that it may have caused endocarditis however we will see further with imaging. Nevertheless we did start the patient on Augmentin prophylactically today until he can see a dentist, I may order a CT of the maxillofacial region of the face to assess for any abscess although none was readily identifiable on physical examination. Neurology is consulted, we appreciate recommendations. Although this document has been carefully reviewed, there may still be some phonetic and other typographical errors. These errors are purely grammatical due to imperfections in the software program and should not be construed in any way to compromise the substance of the patient's medical care during this visit.
--- NOTE | 2024-11-02 07:57 | PC.NURSE ---
installation coordinator: Discussed repeat MRI with MD Duran. Goal for 2nd MR is to r/o abscess / infection. Had only a non-con exam ordered, suggested re-ordering to a MR Brain w/wo - MRA brain - carotid with (per MR Tech). stated he would re-order. Notified MRI - another MR screening form is needed - I discussed this with patient's RN, who will complete the screening form once the new exam is ordered. Exam will be done once screening form is completed. Will follow.
--- NOTE | 2024-11-02 08:00 | PC.NURSE ---
Per gia Pritchard to add lipid panel to morning labs.
[2024-11-02 08:09] LABS: Glucose Estimated Average 100 mg/dL (80-131); Hemoglobin A1C 5.1 % Hgb (4.8-6.0)
[2024-11-02 08:27] LABS: Cardiac Risk Estimate 5.5 RATIO (4.0-6.7); Cholesterol 194 mg/dL (132-200); HDL Cholesterol 35 mg/dL (40-60); LDL Cholesterol,Calculated 143 mg/dL (0-130); Triglycerides 79 mg/dL (30-150)
[2024-11-02] MEDS: ASPIRIN EC 81 MG TABEC PO (09:33)
--- NOTE | 2024-11-02 12:03 | ECHO_ITS ---
Transesophageal Echo Report Ht (in): 60 Wt (lb): 140 Exam Location: Echo Lab Status: Inpatient Surgical Coder: Precious Ruiz Indications: Procedure Performed: BP: 139 / 100 HR: Technical Quality: Technically difficult study FINDINGS Left Ventricle Normal left ventricular size, wall thickness, systolic function with no obvious regional wall motion abnormalities. Normal left ventricular diastolic filling pattern for age. The ejection fraction is visually estimated at 55 %. Right Ventricle The right ventricle is normal in size and systolic function. Left Atrium The left atrium is normal by two-dimensional, color flow and Doppler imaging with no structural abnormalities, no thrombus formation present. Right Atrium The right atrium is normal by two-dimensional imaging, color flow and Doppler imaging with no structural abnormalities, no thrombus formation present. Atrial Appendages The left atrial appendage appears normal with no evidence for thrombus. Atrial Septum The interatrial septum appears normal with no evidence of a shunt. Aorta The aorta is normal by two-dimensional, color flow and Doppler interrogation. Mitral Valve The mitral valve is normal by two-dimensional, color flow and Doppler interrogation. There is no significant mitral valve regurgitation, stenosis or prolapse. Aortic Valve The aortic valve is trileaflet and normal by two-dimensional, color flow and Doppler interrogation. There is no significant aortic valve regurgitation. Tricuspid Valve The tricuspid valve is normal by two-dimensional, color flow and Doppler interrogation. There is no significant tricuspid valve regurgitation. Pulmonic Valve The pulmonic valve is normal by two-dimensional, color flow and Doppler interrogation. There is no significant pulmonic valve regurgitation. Vessels The pulmonary artery appears normal. The inferior vena cava pulmonary and hepatic veins appear normal. Pericardium The pericardium is normal by two-dimensional imaging. There is no significant pericardial effusion. CONCLUSIONS Indication: Stroke Bubble study negative for any PFO or ASD. No evidence of left atrial or left atrial appendage thrombus Normal LV size and function with an estimated EF of 60 to 65%. Normal RV size and function. No major valvular abnormalities. No pericardial effusion Shaun Mc (Electronically Signed) Final Date: 05 Nov 2024 03:31
[2024-11-02] MEDS: CLOPIDOGREL BISULFATE 75 MG TABLET PO (12:13)
--- NOTE | 2024-11-02 13:34 | ESCONSULT_ITS ---
HPI Data of Consult Requesting Physician: Kash Adams DO Admitting Provider: Kash Adams DO Attending Provider: Kash Adams DO Primary Care Provider: Steve Ortega MD Consult Narrative History of present illness: This is a 34 year-old male with PMHx migraine headache, childhood seizures, admitted 06/01/2025 for stroke work-up. He presented with acute onset double vision, right-sided weakness, nausea and vomiting, ear pressure and dizziness that started around 12 PM on the day of admission. Last known normal was 6AM before going to sleep. He reported upper respiratory symptoms, flulike illness, over the last week with mild cough and congestion, unable to expectorate sputum. Denies headaches, vision loss, loss of consciousness, syncope or presyncope, seizure-like activity, fall or trauma, previous similar symptoms, chest pain, shortness of breath, palpitation, abdominal pain, dysuria, hematuria or urinary urgency or frequency, recent travel or sick exposure. No personal or family history of autoimmune disorder. He reports recurrent chronic migraine headaches for which are usually managed with OTC analgesics including TYLENOL and ADVIL. Otherwise, reports being healthy. 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 He was on PHENOBARBITAL until the age of 2, without recurrence of seizures since. Report occasional chest palpitations with exertion but not at rest. Denies ever having chest pain or sob (although reports feeling mild sob over the last few weeks 2/2 URI). PAST MEDICAL HISTORY: Migraine headaches, childhood seizure. MEDICATION: IBUPROFEN and TYLENOL. PAST SURGICAL HISTORY: Ureteroscopy for kidney stone at 15 years-old. ALLERGIES: NKA FAMILY HISTORY: Mother is healthy without chronic diseases. His father had a stroke at the age of 40-50, and a heart attack in his 50s. No family history of sudden . 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 He has multiple siblings, all healthy. Lives at home with his siblings. Denies ever using tobacco, drug or alcohol. Denies history of IV drug use. HOSPITAL COURSE: In the ED, T96.0, BP 178/111, HR 62, satting 99% on room air. CMP remarkable for CR 1.3 (baseline 1.4), BUN 12, AST 40, ALT 34, ALP 85, GLUCOSE 120. CBC showed Hgb 16.5 (baseline 16.5-17.1), PLT 189, no leukocytosis. Coag panel WNL. UA showed a pH of 8.0, otherwise WNL. U tox was negative. EKG showed sinus rhythm, HR 65, incomplete RBBB, no acute ST changes. CXR negative for acute pathology. Head CT suspicious for early infarct of the right occipital lobe. CTA head/neck no significant neck arterial stenosis or large vessel arterial occlusion. Abdominal ultrasound showed normal gallbladder, normal-sized fatty liver. Spleen ultrasound was done showing normal study. Repeat MRI showed 7 mm acute infarct of the right brainstem at the medulla level. UA growing GNR. He was admitted to telemetry under stroke protocol. Neurology team is following. Continued on ASPIRIN, PLAVIX, and ATORVASTATIN. Additional labs are showing TG 79, cholesterol 194, LDL 143, HDL 35, TSH 0.57. PLA2 currently pending. Cardiology consulted for echocardiogram, evaluation of PFO. Will proceed with TTE, and consider EMILY if indicated. Recommended continuing with stroke protocol under neurology's recommendations. cc:: cc: Kash Adams, Review of Systems Review of Systems Narrative Review of Systems: 12 point system review negative except for above mentioned. Exam Vital Signs Temp Pulse Resp BP Pulse Ox O2 Del Method 98.1 F 79 17 131/93 H 96 Room Air 11/02/24 12:00 11/02/24 12:00 11/02/24 12:00 11/02/24 12:00 11/02/24 12:00 11/02/24 12:00 Narrative Exam GENERAL: AOx3, speaks in full sentence, NAD HEENT: NC/AC, PERRLA. CHronic cavity of right lower molar. 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 Results Labs 11/04/24 04:40 11/04/24 04:40 Labs: Short CBC 11/01/24 11/02/24 Range/Units 13:20 04:24 WBC 7.9 10.4 (3.8-10.6) Thou/mm3 Hgb 17.1 H 16.1 H (13.5-16.0) g/dL Hct 47.3 45.1 (41.0-53.0) % Plt Count 365 309 D (140-440) Thou/mm3 BMP 11/01/24 11/02/24 13:20 04:24 Sodium 144 139 Potassium 3.9 3.7 Chloride 107 101 Carbon Dioxide 26.4 25.8 BUN 8 L 8 L Creatinine 1.2 1.1 Glucose 143 H 103 Calcium 9.3 9.2 Cardiac Enzymes 11/01/24 Range/Units 13:20 Troponin I < 0.002 (0.0-0.045) ng/mL Liver Function 11/01/24 11/02/24 Range/Units 13:20 04:24 Total Bilirubin 0.9 0.6 (0.3-1.2) mg/dL AST 34 25 (0-34) U/L ALT 57 H 48 (10-49) U/L Alkaline Phosphatase 93 88 (46-116) U/L Albumin 4.7 4.5 (3.5-5.0) gm/dL Urine 11/01/24 Range/Units 16:44 Urine Color Lt-Yellow (Lt Yel-Yel) Urine Clarity Clear (Clear/Hazy) Urine pH 8.0 H (5.0-7.0) Ur Specific [place] 1.015 (1.001-1.035) Urine Protein Negative (Neg - Trace) Urine Glucose (UA) Negative (Negative) ABG Interpretation ABG results: 11/01/24 13:20 VBG pH 7.42 VBG pCO2 42 VBG pO2 50 VBG Base Excess 2 Quality Measures Quality Measures VTE prophylaxis Medications Home Medications and Allergies Allergies Allergy/AdvReac Type Severity Reaction Status Date / Time No Known Allergies Allergy Verified 01/27/23 08:30 Visit Medications Acetaminophen (Acetaminophen 325 Mg Tablet) 650 mg PO Q6H PRN PRN Reason: Fever >101.5 Stop: 12/01/24 17:50 Last Admin: 11/01/24 18:05 Dose: 650 mg Aspirin (Aspirin Ec 81 Mg Tabec) 81 mg PO QDAY TONG Stop: 12/02/24 08:59 Last Admin: 11/02/24 09:33 Dose: 81 mg Atorvastatin Calcium (Atorvastatin Calcium 20 Mg Tablet) 80 mg PO HS TONG Stop: 12/02/24 20:59 Clopidogrel Bisulfate (Clopidogrel Bisulfate 75 Mg Tablet) 75 mg PO QDAY TONG Stop: 12/02/24 11:44 Last Admin: 11/02/24 12:13 Dose: 75 mg Promethazine HCl 12.5 mg/ (Sodium Chloride) 50.5 mls @ 2.5 mls/min IV Q6HR PRN PRN Reason: NAUSEA OR VOMITING Stop: 12/01/24 17:52 Meclizine HCl (Meclizine Hcl 25 Mg Tablet) 25 mg PO TID PRN PRN Reason: DIZZINESS Stop: 12/02/24 11:39 Ondansetron HCl (Ondansetron Inj 2 Mg/Ml Inj 2 Ml) 4 mg IV Q6H PRN; Protocol PRN Reason: NAUSEA OR VOMITING Stop: 12/01/24 17:50 Last Admin: 11/01/24 22:45 Dose: 4 mg Oxycodone/Acetaminophen (Oxycodone/Apap 5/325 Tablet) 1 tab PO Q6H PRN PRN Reason: PAIN SCALE 4-6 (Moderate Stop: 11/06/24 17:50 Discontinued Medications Aspirin (Aspirin 81 Mg Chew) 81 mg PO X1 ONE Stop: 11/01/24 13:58 Last Admin: 11/01/24 15:28 Dose: 81 mg Aspirin (Aspirin Ec 81 Mg Tabec) 81 mg PO X1 ONE Stop: 11/01/24 16:02 Last Admin: 11/01/24 16:07 Dose: 81 mg Clopidogrel Bisulfate (Clopidogrel Bisulfate 75 Mg Tablet) 300 mg PO X1 ONE Stop: 11/01/24 13:58 Last Admin: 11/01/24 15:37 Dose: 300 mg Clopidogrel Bisulfate (Clopidogrel Bisulfate 75 Mg Tablet) 75 mg PO QDAY [facility] Stop: 12/02/24 08:59 Sodium Chloride (Ns) 500 mls @ 150 mls/hr IV .Q3H20M ONE Stop: 11/01/24 19:19 Last Infusion: 11/01/24 19:44 Dose: Infused Lactated Ringer's (Lactated Ringers) 1,000 mls @ 75 mls/hr IV .[id number] [facility] Stop: 11/02/24 07:19 Last Admin: 11/01/24 19:42 Dose: 75 mls/hr Lorazepam (Lorazepam 2 Mg/Ml Vial) 0.5 mg IVP X1 ONE Stop: 11/01/24 17:07 Last Admin: 11/01/24 17:54 Dose: 0.5 mg Meclizine HCl (Meclizine Hcl 25 Mg Tablet) 25 mg PO X1 ONE Stop: 11/02/24 00:16 Last Admin: 11/02/24 01:11 Dose: 25 mg Ondansetron HCl (Ondansetron Inj 2 Mg/Ml Inj 2 Ml) 4 mg IV Q4HR PRN PRN Reason: NAUSEA OR VOMITING Stop: 12/01/24 13:10 Last Admin: 11/01/24 15:34 Dose: 4 mg Assessment & Plan Plan This is a 34 year-old male with PMHx migraine headache, childhood seizures, admitted 06/01/2025 for stroke work-up, found to have 7 mm acute infarct of the right brainstem at the medulla level on MRI. Continued on stroke protocol under the management of neurology team. Cardiology consulted for TTE/EMILY. Acute Stroke 7 mm acute right brainstem/medulla infarct. Presented with blurry vision, dizziness, and right-sided weakness. Head CT suspicious for early infarct of the right occipital lobe. MRI showed 7 mm acute infarct of the right brainstem at the medulla level. CTA head/neck no significant neck arterial stenosis or large vessel arterial occlusion. Will proceed with TTE then EMILY to role-up left atrial or ventricular thrombus, PFO, endocarditis, or less likely myxoma. Palpitations Reports occasional palpitations occurring with exertion, not at rest. The most part not bothersome, reports never being woken up with palpitations at night. Denies ever having chest pain. Reports mild shortness of breath over the last 2 weeks secondary to upper respiratory infection. EKG showing sinus rhythm, HR 65, incomplete RBBB. He had an echo previously from 2022 when he was admitted for headache, showing sinus tachycardia, HR 109, possible left atrial enlargement, incomplete RBBB again. Low suspicion for major arrhythmia, less likely to be contributing to his presentation. Recommended cardiology workup outpatient with Holter monitor to evaluate for arrhythmia. Polycythemia CBC showed Hgb 16.5, chronically mildly elevated on previous visits, but unlikely to be contributer to his stroke. Denies history of smoking. Primary team working him up for coagulopathy disorders. Chronic cavity Exam showed chronic, severe lower right molar cavity. Primary team ordered head CT to r/o abscess. Denies headaches, vision loss, loss of consciousness, syncope or presyncope, seizure-like activity, fall or trauma, previous similar symptoms, chest pain, shortness of breath, palpitation, abdominal pain, dysuria, hematuria or urinary urgency or frequency, recent travel or sick exposure. He reports recurrent chronic migraine headaches for which are usually managed with OTC analgesics including TYLENOL and ADVIL. Otherwise, reports being healthy. 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 He was on PHENOBARBITAL until the age of 2, without recurrence of seizures since. PAST MEDICAL HISTORY: Migraine headaches, childhood seizure. MEDICATION: IBUPROFEN and TYLENOL. PAST SURGICAL HISTORY: Ureteroscopy for kidney stone at 15 years-old. ALLERGIES: NKA FAMILY HISTORY: Mother is healthy without chronic diseases. His father had a stroke at the age of 40-50, and a heart attack in his 50s. No family history of sudden . 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 He has multiple siblings, all healthy. Lives at home with his siblings. Denies ever using tobacco, drug or alcohol. HOSPITAL COURSE: In the ED, T96.0, BP 178/111, HR 62, satting 99% on room air. CMP remarkable for CR 1.3 (baseline 1.4), BUN 12, AST 40, ALT 34, ALP 85, GLUCOSE 120. CBC showed Hgb 16.5, PLT 189, no leukocytosis. Coag panel WNL. UA showed a pH of 8.0, otherwise WNL. U tox was negative. EKG showed sinus rhythm, HR 65, incomplete RBBB, no acute ST changes. CXR negative for acute pathology. Head CT suspicious for early infarct of the right occipital lobe. CTA head/neck no significant neck arterial stenosis or large vessel arterial occlusion. Abdominal ultrasound showed normal gallbladder, normal-sized fatty liver. Spleen ultrasound was done showing normal study. Repeat MRI showed 7 mm acute infarct of the right brainstem at the medulla level. UA growing GNR. He was admitted to telemetry under stroke protocol. Neurology team is following. Continued on ASPIRIN, PLAVIX, and ATORVASTATIN. Additional labs are showing TG 79, cholesterol 194, LDL 143, HDL 35, TSH 0.57. PLA2 currently pending. Cardiology consulted for echocardiogram, evaluation of PFO. Will proceed with TTE, and consider EMILY if indicated. Recommended continuing with stroke protocol under neurology's recommendations. Attending Provider Attestation/Addendum I have personally seen and examined the patient separately on the above date of service and discussed the plan of care with the resident. I reviewed the resident Dr. Stacy Martinez excellent consultation progress note and agree with the resident findings and plan in the note above and have also edited the documentation to reflect my findings and plan. A 32-year-old male with a past medical history of migraine headache, childhood seizures, overweight presented to the emergency department for further evaluation of double vision, right-sided weakness, nausea and vomiting along with some dizziness, palpitations.. Patient was diagnosed with acute stroke with MRI showing 7 mm acute infarct of the right brainstem in the medulla. Also initial head CT was suspicious for early infarct of the right occipital lobe but CTA head and neck did not show any arterial stenosis or large vessel occlusion. EKG showed normal sinus rhythm with incomplete RBBB and no acute ST-T changes. Rest of the labs and vitals showed elevated blood pressure at 178/111 mmHg admission, mildly elevated creatinine and normal 1.3, rest of the CBC BMP was normal except for a positive UA. Patient was seen by the neurology during this admission and recommended echocardiogram to rule out any cardioembolic sources of shock given the possible right occipital lobe as well as acute infarct in the right brainstem at medications 1. 1. Acute stroke 2. Palpitations 3. Migraine headaches 4. Childhood seizures 5. Polycythemia 6. Overweight Appropriate indication for EMILY given the acute stroke in young adult. Patient did not have any kind of chest pain chest pressure shortness of breath the cardia complaints. He does have some palpitations but EKG and telemetry shows normal sinus rhythm. Will need to continue to follow-up as outpatient with cardiology for further Holter monitor. Transthoracic echocardiogram is pending for now and will follow-up the results. If there is no obvious PFO then we will plan for a EMILY. Will need to figure out the timing logistics to perform the EMILY as we do not have in-house distance learning technician for tomorrow. This is A1c and lipid profile for further cardiac and stroke risk assessment. LDL is 143 and recommend high intensity statin, cholesterol is 194, HDL is 35 Shaun Mc M.D. Interventional Cardiology
--- NOTE | 2024-11-02 15:05 | PC.SS ---
SS met with patient regarding d/c plan. Pt is alert/oriented. Pt was admitted for RT. Sided Weakness And Dizziness. Pt confirmed demographic and contact information is correct on facesheet. Pt resides with brothers and sister. Pt ambulates independently without assistance or DME. Pt is ok with all ADLs. 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 Patient?s pharmacy of choice is [facility] on [address]. Pt named his mom, Aydee Saenz, phone# [phone] or his sister, Noel Rodrigues medical decision makers if she is unable. Pt has updated his mom's information on his facesheet and removed his dad's information. SS has called Vanessa from pt registration to update patient's facesheet, upon patient's request. Pt is aware Luis Alfredo from PT is recommending an Acute Rehab Facility for PT. Pt explained he was informed his [employer] is not active and has to re apply for Medical. SS currently has a [employer]. has provided pt with [employer] form to follow up. D/C plan: Return home or Acute Rehab Next of Kin: Aydee Saenz, mom, phone# [phone] or Noel Lilia, sister, phone# [phone] PCP: [facility] Address: Correct on facesheet
--- NOTE | 2024-11-02 15:26 | XR_ITS ---
Examination: CT maxillofacial, without intravenous contrast. 2-D sagittal reconstructions. 3-D reconstructions. Date and time of exam:November 02, 2024 1806 hours INDICATIONS: Dental pain 2 months CTDI: vol (mGy):19.1 DLP: (mGycm):395 Technique: Multiple axial images of maxillofacial region, 3.0 mm slice thickness. 2-D sagittal and coronal reconstructions. 3-D reconstructions. Low dose protocols were performed. One or more of the following dose reduction techniques were used; automated exposure control, adjustment of the mA and/or KV according to patient size, use of iterative reconstruction technique. Findings: Dental caries right mandibular molar, axial image 34 with bone destruction involving the lateral margin of the mandible at this level axial image 36 Smaller dental caries premolar right mandible axial image 34 Dental caries right maxillary premolar axial image 52 with early bone destruction involving the lateral right cortex of the mandible axial image 53 No adjacent soft tissue abscesses Significant maxillary sinus disease nasal bones are intact No depression zygomatic arches IMPRESSION: Mandibular and maxillary dental caries with bone destruction involving both the mandible and maxilla as above.
--- NOTE | 2024-11-02 15:39 | PC.SS ---
Addendum entered by Cordelia Herring 11/02/24 16:00: SS received call from Felicity from [facility] in [place] who states pt is appropriate for their facility but she requires to know the end date of his [employer]. Felicity explained pt if the [employer] ends at the end of October then they are unable to accept because they will not be paid for patient's services. Pt is aware. Original Note: SS has sent inquiry to the Acute Rehab using [facility] [facility] and expanded search for 80 [address] radius from [facility]. Pt and family (sister and mom) are aware.
--- NOTE | 2024-11-02 16:53 | PD.RESPRO ---
Documentation for date of: 11/02/24 Subjective Subjective Interval history: Patient was seen and examined by the bedside. No acute overnight events. Patient continues to have vertigo, ride sided paresthesias. Repeat MRI showed 7 mm acute infarct right brainstem, medulla level. Patient is on aspirin and plavix, atorvastatin. Physical therapy recommended SNF placement, patient is agreeable. TTE and EMILY ordered, cardiology consulted to work up sources of stroke. Family at the bedside, all questions were answered to satisfaction and they were given time to answer questions. Exam Vital Signs Temp Pulse Resp BP Pulse Ox O2 Del Method 98.1 F 79 17 131/93 H 96 Room Air 11/02/24 12:00 11/02/24 12:00 11/02/24 12:00 11/02/24 12:00 11/02/24 12:00 11/02/24 12:00 Narrative Exam Gen: Well-developed and well-nourished. HEENT: NCAT, PERRLA, EOMI, MMM, anicteric conjunctivae. CVS: normal S1 and S2. RRR. No M/R/G. Resp: CTA B/L. No rhonchi, rales, crackles or wheezing. Abd: soft, non-tender, non-distended. BS+ in all 4 quadrants. MSK: Good ROM in BUE & BLE. No edema or rash. Neuro: Mild rotatory nystagmys. Minimal right tongue deviation. Right side paresthesias. Strength 5/5 in BUE & BLE. Alert. Psych: appropriate mood and affect. Objective Labs 11/02/24 04:24 11/02/24 04:24 Labs: Laboratory Results - last 24 hr 11/01/24 11/02/24 16:44 04:24 WBC 10.4 RBC 5.25 Hgb 16.1 H Hct 45.1 MCV 86 MCH 30.7 MCHC 35.7 RDW Std Deviation 36.1 Plt Count 309 D Neut % (Auto) 84 H Lymph % (Auto) 10 [place] % (Auto) 6 Eos % (Auto) 0 Baso % (Auto) 0 Neut # (Auto) 8.7 H Lymph # (Auto) 1.0 [place] # (Auto) 0.7 Eos # (Auto) 0.0 Baso # (Auto) 0.0 Immature Gran # (Auto) 0.03 H Absolute Nucleated RBC 0.00 Immature Gran % 0 Nucleated RBC % 0 PT 11.3 INR 1.0 APTT 26.8 Sodium 139 Potassium 3.7 Chloride 101 Carbon Dioxide 25.8 Anion Gap 12 BUN 8 L Creatinine 1.1 Estim Creat Clear Calc 73.5 eGFR > 60 BUN/Creatinine Ratio 7 L Glucose [address] Glu mg/dL 100 Hemoglobin A1c 5.1 Calculated Osmolality 275 Calcium 9.2 Corrected Calcium 9.2 Phosphorus 3.1 Magnesium 2.0 Total Bilirubin 0.6 AST 25 ALT 48 Alkaline Phosphatase 88 Total Protein 7.1 Albumin 4.5 Globulin 2.6 Albumin/Globulin Ratio 1.7 Triglycerides 79 Cholesterol 194 LDL Cholesterol, Calc 143 H HDL Cholesterol 35 L Cholesterol/HDL Ratio 5.5 TSH 0.57 Ur Collection Type Clean Catch Urine Color Lt-Yellow Urine Clarity Clear Urine pH 8.0 H Ur Specific Lookout 1.015 Urine Protein Negative Urine Glucose (UA) Negative Urine Ketones Negative Urine Blood Negative Urine Nitrite Negative Urine Bilirubin Negative Urine Urobilinogen (Auto) Negative Ur Leukocyte Esterase Negative Urine RBC 3 Urine WBC 2 Ur Squamous Epith Cells < 1 Urine Bacteria None Urine Opiates Screen Negative Urine Fentanyl Screen Negative Ur Barbiturates Screen Negative U Amphetamin/Meth Scrn Negative U Benzodiazepines Scrn Negative U Cocaine Metab Screen Negative U Marijuana (THC) Screen Negative ABG Interpretation ABG results: 11/01/24 13:20 VBG pH 7.42 VBG pCO2 42 VBG pO2 50 VBG Base Excess 2 Quality Measures Quality Measures VTE prophylaxis Assessment & Plan Assessment Current Active Medications: Generic Name Dose Route Start Last Admin Trade Name Freq PRN Reason Stop Dose Admin Acetaminophen 650 mg 11/01/24 17:51 11/01/24 18:05 Acetaminophen 325 Mg Tablet PO 12/01/24 17:50 650 mg Q6H PRN Administration Fever >101.5 Amoxicillin/Clavulanate Potassium 1 tab 11/02/24 21:00 Amoxicillin/Pot Clav 875 Tablet PO 11/09/24 20:59 BID TONG Aspirin 81 mg 11/02/24 09:00 11/02/24 09:33 Aspirin Ec 81 Mg Tabec PO 12/02/24 08:59 81 mg QDAY TONG Administration Atorvastatin Calcium 80 mg 11/02/24 21:00 Atorvastatin Calcium 20 Mg Tablet PO 12/02/24 20:59 HS TNOG Clopidogrel Bisulfate 75 mg 11/02/24 11:45 11/02/24 12:13 Clopidogrel Bisulfate 75 Mg Tablet PO 12/02/24 11:44 75 mg QDAY TONG Administration Promethazine HCl 12.5 mg/ 50.5 mls @ 2.5 mls/min 11/01/24 17:53 Sodium Chloride IV 12/01/24 17:52 Q6HR PRN NAUSEA OR VOMITING Meclizine HCl 25 mg 11/02/24 11:40 Meclizine Hcl 25 Mg Tablet PO 12/02/24 11:39 TID PRN DIZZINESS Ondansetron HCl 4 mg 11/01/24 17:51 11/01/24 22:45 Ondansetron Inj 2 Mg/Ml Inj 2 Ml IV 12/01/24 17:50 4 mg Q6H PRN Administration NAUSEA OR VOMITING Protocol Oxycodone/Acetaminophen 1 tab 11/01/24 17:51 Oxycodone/Apap 5/325 Tablet PO 11/06/24 17:50 Q6H PRN PAIN SCALE 4-6 (Moderate Plan The patient is a 34-year-old male with previous medical history of headaches who was brought in by ambulance after he woke up at approximately 12 PM with vertigo, diaphoresis, lightheadedness, nausea, vomiting, tingling in the right side of the body, balance problems. #Acute medullary stroke #Vertigo #Nausea #Vomiting #Nystagmus Patient has vertigo, ride sided paresthesias. Repeat MRI showed 7 mm acute infarct right brainstem, medulla level. LDL 143, HDL 35, TSH 0.57, A1c 5.1%. Plan: - telemetry - aspirin 81 mg qday, plavix 75 mg qday - atorvastatin 80 mg qday - risk stratification: lipid panel, TSH, A1c - BP control - physical therapy - speech therapy - anticoagulation panel - TTE, EMILY - cardiology consult Plan of care discussed with attending Dr Hill. Annalee Prieto MD, PGY 1. Attending Provider Attestation/Addendum I personally have seen and examined the patient at the bedside and I agree with resident's findings, assessment and plan of care. Will continue with the current management: Meclizine 10 mg tid with asa and plavix. Repeat MRI brain showed right medullary infarction. Ordered hypercoagulopathy panel and EMILY to complete the workup.
[2024-11-02] MEDS: ATORVASTATIN CALCIUM 20 MG TABLET 80 MG PO (20:15)
[2024-11-02] MEDS: AMOXICILLIN/POT CLAV 875 TABLET 1 TAB PO (20:15)
--- NOTE | 2024-11-02 22:18 | ECHO_ITS ---
Transthoracic Echo Report Ht (in): 60 Wt (lb): 140 Exam Location: Echo Lab Status: Inpatient Personal Financial Counselor: Precious Ruiz Indications: Procedure Performed: BP: 116 / 74 HR: Technical Quality: Technically difficult study MEASUREMENTS (Male / Female) Normal Values 2D ECHO LV Diastolic Diameter PLAX 3.3 cm 4.2 - 5.9 / 3.9 - 5.3 cm LV Systolic Diameter PLAX 2.3 cm IVS Diastolic Thickness 1.0 cm 0.6 - 1.0 / 0.6 - 0.9 cm LVPW Diastolic Thickness 0.9 cm 0.6 - 1.0 / 0.6 - 0.9 cm LV Relative Wall Thickness 0.6 LVOT Diameter 1.6 cm M-MODE Aortic Root Diameter MM 2.9 cm LA Systolic Diameter MM 2.8 cm LA Ao Ratio MM 1.0 AV Cusp Separation MM 1.5 cm DOPPLER AV Peak Velocity 81.8 cm/s AV Peak Gradient 2.7 mmHg AV Mean Gradient 1.0 mmHg AV Velocity Time Integral 16.5 cm LVOT Peak Velocity 67.2 cm/s LVOT Peak Gradient 1.8 mmHg LVOT Velocity Time Integral 14.9 cm AV Area Cont Eq vti 1.8 cm? AV Area Cont Eq pk 1.7 cm? MV Area PHT 2.7 cm? Mitral E Point Velocity 64.0 cm/s Mitral A Point Velocity 67.9 cm/s Mitral E to A Ratio 0.9 LV E' Lateral Velocity 12.4 cm/s Mitral E to LV E' Lateral Ratio 5.2 LV E' Septal Velocity 7.0 cm/s Mitral E to LV E' Septal Ratio 9.2 PV Peak Velocity 96.4 cm/s PV Peak Gradient 3.7 mmHg FINDINGS Left Ventricle Normal left ventricular size, wall thickness, systolic function with no obvious regional wall motion abnormalities. Normal left ventricular diastolic filling pattern for age. The ejection fraction is visually estimated at 55 %. Right Ventricle The right ventricle is normal in size and systolic function. Left Atrium The left atrium is normal by two-dimensional, color flow and Doppler imaging with no structural abnormalities, no thrombus formation present. Right Atrium The right atrium is normal by two-dimensional imaging, color flow and Doppler imaging with no structural abnormalities, no thrombus formation present. Atrial Septum The interatrial septum appears normal with no evidence of a shunt. Aorta The aorta is normal by two-dimensional, color flow and Doppler interrogation. Mitral Valve The mitral valve is normal by two-dimensional, color flow and Doppler interrogation. There is no significant mitral valve regurgitation, stenosis or prolapse. Aortic Valve The aortic valve is trileaflet and normal by two-dimensional, color flow and Doppler interrogation. There is no significant aortic valve regurgitation. Tricuspid Valve The tricuspid valve is normal by two-dimensional, color flow and Doppler interrogation. There is trace tricuspid valve regurgitation. Pulmonic Valve The pulmonic valve is not well visualized. There is no significant pulmonic valve regurgitation. Vessels The pulmonary artery appears normal. The inferior vena cava pulmonary and hepatic veins appear normal. Pericardium The pericardium is normal by two-dimensional imaging. There is no significant pericardial effusion. CONCLUSIONS Indication: Stroke: Normal LV size and function with an estimated EF of 60 to 65%. Normal RV size and function. Trace TR. No other major valvular abnormalities. No pericardial effusion. Shaun Mc (Electronically Signed) Final Date: 05 Nov 2024 03:34
[2024-11-03] VITALS (20 sets, daily range): BP systolic 108–149; BP diastolic 74–113; PULSE 64–94; RESP 2–26; TEMP 36.7–37.6; O2SAT 93–99; BMI 27.1; BMI 15.0
[2024-11-03] MEDS: MECLIZINE HCL 25 MG TABLET PO (05:27)
[2024-11-03 06:14] LABS: Basophils % (Auto) 0 % (0-2.5); Eosinophils # (Auto) 0.1 Thou/mm3 (0.0-0.5); Eosinophils % (Auto) 1 % (0-10); Hematocrit 46.1 % (41.0-53.0); Hemoglobin 16.7 g/dL (13.5-16.0); Immature Granulocytes % (Auto) 0 % (0-0); Immature Granulocytes Auto 0.03 Thou/mm3 (0.00-0.00); Lymphocytes # (Auto) 1.8 Thou/mm3 (1.0-4.8); Lymphocytes % (Auto) 18 % (10-50); Mean Corpuscular HGB Conc 36.2 g/dl (31.0-37.0); Mean Corpuscular Hemoglobin 30.9 pg (25.0-35.0); Mean Corpuscular Volume 85 fL (80-100); Monocytes % (Auto) 10 % (0-12); Neutrophils # (Auto) 7.1 Thou/mm3 (1.8-7.7); Neutrophils % (Auto) 71 % (37-80); Nucleated Red Blood Cell % 0 /100 WBC (0); Platelet Count 306 Thou/mm3 (140-440); RDW Standard Deviation 35.6 fL (35.1-43.9); Red Blood Count 5.41 Miln/mm3 (4.50-5.90); White Blood Count 9.9 Thou/mm3 (3.8-10.6)
[2024-11-03 06:39] LABS: Alanine Aminotransferase 38 U/L (10-49); Albumin, Serum 4.5 gm/dL (3.5-5.0); Albumin/Globulin Ratio 1.8 (1.2-2.2); Alkaline Phosphatase 91 U/L (46-116); Anion Gap 11 (7-16); Aspartate Amino Transferase 21 U/L (0-34); BUN/Creatinine Ratio 12 Ratio (12-20); Bilirubin,Total 0.5 mg/dL (0.3-1.2); Blood Urea Nitrogen 13 mg/dL (9-23); Calcium 9.1 mg/dL (8.3-10.6); Calcium (Corrected) 9.1 mg/dL (8.5-10.1); Carbon Dioxide 26.4 mMol/L (20.0-31.0); Chloride 106 mMol/L (98-107); Creatinine (Component) 1.1 mg/dL (0.6-1.3); Estimated Creatinine Clearance 73.2 mL/min (>60); Globulin 2.5 gm/dL (2.3-3.5); Glucose 105 mg/dL (74-106); Magnesium 1.8 mg/dL (1.6-2.6); Osmolality,Calculated 285 (275-295); Phosphorous 2.6 mg/dL (2.4-5.1); Potassium 3.6 mMol/L (3.4-5.1); Sodium 143 mMol/L (136-145); eGFR > 60 See Note
[2024-11-03] MEDS: AMOXICILLIN/POT CLAV 875 TABLET 1 TAB PO (08:23)
[2024-11-03] MEDS: CLOPIDOGREL BISULFATE 75 MG TABLET PO (08:23)
[2024-11-03] MEDS: ASPIRIN EC 81 MG TABEC PO (08:23)
--- NOTE | 2024-11-03 09:05 | PC.SS ---
Follow up note: EMILY pending. SS followed up with the [employer] financial application developer who states she has sent the Medical paper work to the Medical Worker yesterday 11-02-24.
--- NOTE | 2024-11-03 09:10 | PD.RESPRO ---
Documentation for date of: 11/03/24 Subjective Subjective Interval history: No acute overnight events. Reports slight improvement in RUE numbness. Denies new symptoms or worsening of symptoms. BP 141/87, HR 67, satting well on room air. Hgb 16.7, remainder CBC and CMP relatively unremarkable. CT face showed mandibular/maxillary dental caries with bony destruction of both mandible and maxilla. Reports having dental caries for greater than 1 year, previously had a dental abscess that wasn't treated as he couldn't afford it. Will seed with EMILY, to evaluate for abnormality including PFO or vegetations, as discussed previously. UA showing E. coli. Now on AUGMENTIN for both UTI/dental caries. Discussed risks of EMILY procedure including esophageal injury, aspiration, respiratory complications, cardiovascular effects, sedation-related side effects, dental trauma, discomfort or gagging, infection, and exacerbation of preexisting esophageal conditions, and . Patient agrees. EMILY showed no evidence of PFO, negative bubble study, thrombus, or other structural abnormalities. No cardiac sources of embolism identified. Further investigation may be needed to explore non-cardiac causes of stroke Exam Vital Signs Temp Pulse Resp BP Pulse Ox O2 Del Method 98.9 F 67 17 141/87 H 95 Room Air 11/03/24 07:44 11/03/24 07:44 11/03/24 07:44 11/03/24 07:44 11/03/24 07:44 11/03/24 07:44 Narrative Exam GENERAL: AOx3, speaks in full sentence, NAD HEENT: NC/AC, PERRLA. CHronic cavity of right lower molar. CVS: RRR, S1-S2 present, no murmurs appreciated RESP: CTAB GI: soft, mildly distended, non tender, NBS MSK: able to move all 4 limbs, no lower extremity edema SKIN: warm and dry TWISTING PRESS OPERATOR: Mild facial droop, slight weakness in the right upper extremity. Objective Labs 11/04/24 04:40 11/04/24 04:40 Labs: Laboratory Results - last 24 hr 11/03/24 05:49 WBC 9.9 RBC 5.41 Hgb 16.7 H Hct 46.1 MCV 85 MCH 30.9 MCHC 36.2 RDW Std Deviation 35.6 Plt Count 306 Neut % (Auto) 71 Lymph % (Auto) 18 [place] % (Auto) 10 Eos % (Auto) 1 Baso % (Auto) 0 Neut # (Auto) 7.1 Lymph # (Auto) 1.8 [place] # (Auto) 1.0 H Eos # (Auto) 0.1 Baso # (Auto) 0.0 Immature Gran # (Auto) 0.03 H Absolute Nucleated RBC 0.00 Immature Gran % 0 Nucleated RBC % 0 Sodium 143 Potassium 3.6 Chloride 106 Carbon Dioxide 26.4 Anion Gap 11 BUN 13 Creatinine 1.1 Estim Creat Clear Calc 73.2 eGFR > 60 BUN/Creatinine Ratio 12 Glucose 105 Calculated Osmolality 285 Calcium 9.1 Corrected Calcium 9.1 Phosphorus 2.6 Magnesium 1.8 Total Bilirubin 0.5 AST 21 ALT 38 Alkaline Phosphatase 91 Total Protein 7.0 Albumin 4.5 Globulin 2.5 Albumin/Globulin Ratio 1.8 ABG Interpretation ABG results: 11/01/24 13:20 VBG pH 7.42 VBG pCO2 42 VBG pO2 50 VBG Base Excess 2 Quality Measures Quality Measures VTE prophylaxis Assessment & Plan Assessment Current Active Medications: Generic Name Dose Route Start Last Admin Trade Name Freq PRN Reason Stop Dose Admin Acetaminophen 650 mg 11/01/24 17:51 11/01/24 18:05 Acetaminophen 325 Mg Tablet PO 12/01/24 17:50 650 mg Q6H PRN Administration Fever >101.5 Amoxicillin/Clavulanate Potassium 1 tab 11/02/24 21:00 11/03/24 08:23 Amoxicillin/Pot Clav 875 Tablet PO 11/09/24 20:59 1 tab BID TONG Administration Aspirin 81 mg 11/02/24 09:00 11/03/24 08:23 Aspirin Ec 81 Mg Tabec PO 12/02/24 08:59 81 mg QDAY TONG Administration Atorvastatin Calcium 80 mg 11/02/24 21:00 11/02/24 20:15 Atorvastatin Calcium 20 Mg Tablet PO 12/02/24 20:59 80 mg HS TONG Administration Clopidogrel Bisulfate 75 mg 11/02/24 11:45 11/03/24 08:23 Clopidogrel Bisulfate 75 Mg Tablet PO 12/02/24 11:44 75 mg QDAY TONG Administration Promethazine HCl 12.5 mg/ 50.5 mls @ 2.5 mls/min 11/01/24 17:53 Sodium Chloride IV 12/01/24 17:52 Q6HR PRN NAUSEA OR VOMITING Meclizine HCl 25 mg 11/02/24 11:40 11/03/24 05:27 Meclizine Hcl 25 Mg Tablet PO 12/02/24 11:39 25 mg TID PRN Administration DIZZINESS Ondansetron HCl 4 mg 11/01/24 17:51 11/01/24 22:45 Ondansetron Inj 2 Mg/Ml Inj 2 Ml IV 12/01/24 17:50 4 mg Q6H PRN Administration NAUSEA OR VOMITING Protocol Oxycodone/Acetaminophen 1 tab 11/01/24 17:51 Oxycodone/Apap 5/325 Tablet PO 11/06/24 17:50 Q6H PRN PAIN SCALE 4-6 (Moderate Plan This is a 34 year-old male with PMHx migraine headache, childhood seizures, admitted 06/01/2025 for stroke work-up, found to have 7 mm acute infarct of the right brainstem at the medulla level on MRI. Continued on stroke protocol under the management of neurology team. Cardiology consulted for TTE/EMILY. Acute Stroke 7 mm acute right brainstem/medulla infarct. Presented with blurry vision, dizziness, and right-sided weakness. Head CT suspicious for early infarct of the right occipital lobe. MRI showed 7 mm acute infarct of the right brainstem at the medulla level. CTA head/neck no significant neck arterial stenosis or large vessel arterial occlusion. TG 79, cholesterol 194, LDL 143, HDL 34, TSH 0.57, A1c 5.1. EMLIY showed no evidence of PFO, negative bubble study, thrombus, or other structural abnormalities. No cardiac sources of embolism identified. Further investigation may be needed to explore non-cardiac causes of stroke. Continue ASPIRIN, statin, PLAVIX per neurology team recommendations. Palpitations Reports occasional palpitations occurring with exertion, not at rest. The most part not bothersome, reports never being woken up with palpitations at night. Denies ever having chest pain. Reports mild shortness of breath over the last 2 weeks secondary to upper respiratory infection. EKG showing sinus rhythm, HR 65, incomplete RBBB. He had an echo previously from 2022 when he was admitted for headache, showing sinus tachycardia, HR 109, possible left atrial enlargement, incomplete RBBB again. Low suspicion for major arrhythmia, less likely to be contributing to his presentation. Recommended cardiology workup outpatient with Holter monitor to evaluate for arrhythmia. Polycythemia Hgb slightly elevated, chronically mildly elevated on previous visits, but unlikely to be contributor to his stroke. Denies history of smoking. Primary team working him up for coagulopathy disorders. Chronic cavity Exam showed chronic, severe lower right molar cavity. Face CT showed chronic cavity and bony destruction of upper and lower mandibles on the right. Currently on ABX. Management of rest of the medical conditions as per primary team and other consultants. Thank you for the consult and allowing me to participate in the care of the patient. Cardiology will continue to follow. E coli UTI On ABX. Management of rest of the medical conditions as per primary team and other consultants. Thank you for the consult and allowing me to participate in the care of the patient. Cardiology will continue to follow. Case was discussed with attending, Dr. Mc. Stacy Martinez DO PGYI Attending Provider Attestation/Addendum I have personally seen and examined the patient separately on the above date of service and discussed the plan of care with the resident. I reviewed the resident Dr. Stacy Martinez excellent consultation progress note and agree with the resident findings and plan in the note above and have also edited the documentation to reflect my findings and plan. A 32-year-old male with a past medical history of migraine headache, childhood seizures, overweight presented to the emergency department for further evaluation of double vision, right-sided weakness, nausea and vomiting along with some dizziness, palpitations.. Patient was diagnosed with acute stroke with MRI showing 7 mm acute infarct of the right brainstem in the medulla. Also initial head CT was suspicious for early infarct of the right occipital lobe but CTA head and neck did not show any arterial stenosis or large vessel occlusion. EKG showed normal sinus rhythm with incomplete RBBB and no acute ST-T changes. Rest of the labs and vitals showed elevated blood pressure at 178/111 mmHg admission, mildly elevated creatinine and normal 1.3, rest of the CBC BMP was normal except for a positive UA. Patient was seen by the neurology during this admission and recommended echocardiogram to rule out any cardioembolic sources of shock given the possible right occipital lobe as well as acute infarct in the right brainstem at medications 1. 1. Acute stroke 2. Palpitations 3. Migraine headaches 4. Childhood seizures 5. Polycythemia 6. Overweight Appropriate indication for EMILY given the acute stroke in young adult. Patient did not have any kind of chest pain chest pressure shortness of breath the cardia complaints. He does have some palpitations but EKG and telemetry shows normal sinus rhythm. Will need to continue to follow-up as outpatient with cardiology for further Holter monitor. TSH A1c and lipid profile for further cardiac and stroke risk assessment. LDL is 143 and recommend high intensity statin, cholesterol is 194, HDL is 35 Echocardiogram completed showed normal LV size and function, normal RV size and function. Estimated LVEF is 60 to 65%. No regional valvular abnormalities. Will plan to do EMILY later this afternoon Shaun Mc M.D. Interventional Cardiology
--- NOTE | 2024-11-03 09:25 | CHAP ---
Patient expressed gratitude for quick visit.
--- NOTE | 2024-11-03 11:13 | PC.SS ---
Addendum entered by Cordelia Herring 11/03/24 16:02: SS received call from [facility] who explained pt is appropriate and can accept pt. SS has explained pt has chosen his acute rehab location. SS met with pt who is aware and is still agreeable to [facility]. Per pt, he has communicated with Merna at [facility]. Pt is aware his health insurance does not cover transportation. If pt is unable to sit in wheelchair pt will require transportation setup. Original Note: SS has sent Hospital Presumptive Eligibility (HPE) Form to [facility] using [employer]. SS spoke to Merna from [facility] at [phone] who explained they will accept pt and can accept over the weekend. Pt is aware and is agreeable to [facility] [place].
[2024-11-03] MEDS: PROMETHAZINE INJ 12.5 MG in SODIUM CHLORIDE 0.9% 50 ML 2.5 MG IV (12:35)
[2024-11-03] MEDS: ACETAMINOPHEN IVPB 1,000 MG/100 ML VIAL 250 MG IV (12:49)
--- NOTE | 2024-11-03 13:09 | PC.NURSE ---
Cad Administrator: met with patient and his sister. Stroke education book was given, customized with patient's lab values. I included the following handouts: 1. the BE FASAT 2. Setting up the Medical ID in your phone 3. [employer] virtual support group - info on next meeting 4. High blood pressure as a risk factor I taught the BE FAST to him and his sister, reinforced with above handout. Both we able to recite the meaning of the pneumonic back to me at the end of the education session. We discussed always calling 911 - right away- for any stroke like symptoms. They asked questions around the thrombolytic time frame and why he could not get the medication - i explained the time constraints, the concenpt of a Last Known Well Time and how the time frame is based on this time. He was out of the window. I spent one hour with them. I explained lab tests, imaging, etc in response to their questions. They commented that this visit was very helpful. I noticed the patient doing a little coughing and he said he is having to work hard at swallowing. I asked the RN for an incentive spirometer - she will provide one and explain it's use.
--- NOTE | 2024-11-03 13:11 | ESPR_ITS ---
Documentation for date of: 11/03/24 Subjective Subjective Interval history: Patient was seen and examined at bedside. Patient reported that he still has some dizziness, however he denied any new symptoms. Still has double vision and right-sided tingling and weakness. Vital signs was within normal limit. Hemoglobin 16, CMP with no significant changes. CT of the face showed M andibular and maxillary dental caries with bone destruction involving both the mandible and maxilla. The cardiology team has ordered for the patient EMILY hopefully will be done today to rule out any embolic source intracardiac specially infective carditis secondary to his infected teeth. Also the neurology team ordered for the patient antiphospholipid syndrome workup, homocystinuria workup, a coagulopathy panel to rule out any disorder that participated in patient's condition. Physical therapy recommended that the patient need acute rehab for discharge and speech therapist recommended dysphagia 3. Exam Vital Signs Temp Pulse Resp BP Pulse Ox O2 Del Method 98.9 F 67 17 141/87 H 95 Room Air 11/03/24 07:44 11/03/24 07:44 11/03/24 07:44 11/03/24 07:44 11/03/24 07:44 11/03/24 07:44 Narrative Exam GEN: AOx3, able to speak full sentences HEENT: NC/AC, PERRLA, oral cavity examination showed infected tooth on the right side, surrounded by mild discharge. No lymph node enlargement, no redness, no swelling or lump. 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 No slurred speech. Objective Labs 11/03/24 05:49 11/03/24 05:49 Labs: Laboratory Results - last 24 hr 11/03/24 05:49 WBC 9.9 RBC 5.41 Hgb 16.7 H Hct 46.1 MCV 85 MCH 30.9 MCHC 36.2 RDW Std Deviation 35.6 Plt Count 306 Neut % (Auto) 71 Lymph % (Auto) 18 [place] % (Auto) 10 Eos % (Auto) 1 Baso % (Auto) 0 Neut # (Auto) 7.1 Lymph # (Auto) 1.8 [place] # (Auto) 1.0 H Eos # (Auto) 0.1 Baso # (Auto) 0.0 Immature Gran # (Auto) 0.03 H Absolute Nucleated RBC 0.00 Immature Gran % 0 Nucleated RBC % 0 Sodium 143 Potassium 3.6 Chloride 106 Carbon Dioxide 26.4 Anion Gap 11 BUN 13 Creatinine 1.1 Estim Creat Clear Calc 73.2 eGFR > 60 BUN/Creatinine Ratio 12 Glucose 105 Calculated Osmolality 285 Calcium 9.1 Corrected Calcium 9.1 Phosphorus 2.6 Magnesium 1.8 Total Bilirubin 0.5 AST 21 ALT 38 Alkaline Phosphatase 91 Total Protein 7.0 Albumin 4.5 Globulin 2.5 Albumin/Globulin Ratio 1.8 ABG Interpretation ABG results: 11/01/24 13:20 VBG pH 7.42 VBG pCO2 42 VBG pO2 50 VBG Base Excess 2 Quality Measures Quality Measures VTE prophylaxis Assessment & Plan Assessment Current Active Medications: Generic Name Dose Route Start Last Admin Trade Name Freq PRN Reason Stop Dose Admin Acetaminophen 650 mg 11/01/24 17:51 11/01/24 18:05 Acetaminophen 325 Mg Tablet PO 12/01/24 17:50 650 mg Q6H PRN Administration Fever >101.5 Amoxicillin/Clavulanate Potassium 1 tab 11/02/24 21:00 11/03/24 08:23 Amoxicillin/Pot Clav 875 Tablet PO 11/09/24 20:59 1 tab BID TONG Administration Aspirin 81 mg 11/02/24 09:00 11/03/24 08:23 Aspirin Ec 81 Mg Tabec PO 12/02/24 08:59 81 mg QDAY TONG Administration Atorvastatin Calcium 80 mg 11/02/24 21:00 11/02/24 20:15 Atorvastatin Calcium 20 Mg Tablet PO 12/02/24 20:59 80 mg HS TONG Administration Clopidogrel Bisulfate 75 mg 11/02/24 11:45 11/03/24 08:23 Clopidogrel Bisulfate 75 Mg Tablet PO 12/02/24 11:44 75 mg QDAY TONG Administration Promethazine HCl 12.5 mg/ 50.5 mls @ 2.5 mls/min 11/03/24 11:43 11/03/24 12:35 Sodium Chloride IV 12/01/24 17:52 2.5 mls/min Q6HR PRN Administration Nausea Or Vomiting, dizziness Meclizine HCl 25 mg 11/02/24 11:40 11/03/24 05:27 Meclizine Hcl 25 Mg Tablet PO 12/02/24 11:39 25 mg TID PRN Administration DIZZINESS Ondansetron HCl 4 mg 11/01/24 17:51 11/01/24 22:45 Ondansetron Inj 2 Mg/Ml Inj 2 Ml IV 12/01/24 17:50 4 mg Q6H PRN Administration NAUSEA OR VOMITING Protocol Oxycodone/Acetaminophen 1 tab 11/01/24 17:51 Oxycodone/Apap 5/325 Tablet PO 11/06/24 17:50 Q6H PRN PAIN SCALE 4-6 (Moderate Plan A 34-year-old male patient with no past medical history presented to the ED due to acute onset of dizziness, double vision, and right-sided weakness. Patient reported that he woke up today at 12:30 PM with severe dizziness, double vision, right-sided weakness associated with ear fullness. Patient was admitted for stroke workup and neurology consultation. 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 Patient reported that he woke up today at 12:30 PM with severe dizziness, double vision, right-sided weakness associated with ear fullness. On examination patient was found to have Mild facial droop, positive nystagmus, tongue deviation, slight weakness in the right upper extremity. No slurred speech. Patient also found to have infected tooth in the right side area. initial CT scan was suspicious for early infarct of the right occipital lobe and was negative for any hemorrhage, however brain MRI was negative for any infarct. Head and neck CTA was negative for any significant arterial stenosis or large vessel occlusion. MR brain W/W, MRA brain W, corrected W completed on 11/02/2024 findings include: 7 mm acute infarct right brainstem, medulla level. Physical therapist recommended acute rehab, speech therapist recommended dysphagia 3, maxillofacial CT showed destruction of the mandible and maxilla secondary to dental cavities. No abscess seen. That could be a source for possible rheumatic fever and subsequently endocarditis. Plan ? Continue the patient on aspirin 81 mg daily ? Continue the patient on Plavix 75 mg p.o. daily ? Continue patient on Zofran 4 mg every 6 hours as needed ? Continue promethazine every 6 hours as needed for the vomiting with dizziness ? Started on meclizine 25 Mg p.o. 3 times daily as needed as per neurology recommendations ? Neurochecks every 4 hours ? Seizures precautions ? Bedrest ? Transesophageal echocardiogram ordered to assess for structural defects ? Refractory Furnace Designer, Dr. Mc consulted. Appreciate recommendations ? Neurologist, Dr. Hill was consulted. Appreciate recommendations - Antiphospholipid antibodies, hypercoagulability workup, homocystinuria workup, and polycythemia vera workup were already sent pending results ? Factor V Leyden screening, ESR, CRP and c-ANCA to rule out vasculitis. #Right mandibular bone destruction secondary to dental cavities, no abscess #Right maxillary bone destruction secondary to simple cavities, no abscess maxillofacial CT showed destruction of the mandible and maxilla secondary to dental cavities. No abscess seen. Plan ? Oral care ? Start the patient on Augmentin 1 g p.o. daily ? Follow-up outpatient settings with maxillofacial surgeon upon discharge ? Follow-up with the EMILY to rule out rheumatic fever or endocarditis complications. Polycythemia nonspecified?improved Patient consistently has hemoglobin level above 16. No history of smoking. Liver and spleen ultrasound showed no abnormalities. Plan: ? Pending JAK2 and EPO levels. Follow-up outpatient for results Health maintenance: Disposition: Pending EMILY. Patient will be discharged [facility] Diet: Regular Lines: pIVs GI Prophylaxis: Not indicated Thrombo Prophylaxis: None CODE STATUS: Full code - Patient's plan and care discussed with my attending, Dr. Bryan Dockery MD Internal Medicine PGY-2 Attending Provider Attestation/Addendum I have discussed and was present for the essential components of the history, physical examination, diagnosis, and treatment plan with the resident. I agree with the patient's care as documented by the resident and amended herein by me. Edwin Adams DO. Although this document has been carefully reviewed, there may still be some phonetic and other typographical errors. These errors are purely grammatical due to imperfections in the software program and should not be construed in any way to compromise the substance of the patient's medical care during this visit.
[2024-11-03 14:18] LABS: C-Reactive Protein < 0.5 mg/dL (0.0-0.9); Sed Rate (ESR) 15 mm/hr (0-15)
[2024-11-03] MEDS: fentaNYL CIT INJ 50 mCg/ML AMP 2ML 75 MCG IVP (16:30)
[2024-11-03] MEDS: MIDAZOLAM INJ 1 MG/ML VIAL 2 ML 3 MG IVP (16:30)
[2024-11-03] MEDS: BENZOCAINE 20% (Hurricaine) SPRAY 1 DOSE TOP (16:54)
[2024-11-03] MEDS: PIPER/TAZO 3.375 GM PREMIX 3.375 GM/50 ML BAG IV ×2 (18:34→21:07)
--- NOTE | 2024-11-03 20:28 | XR_ITS ---
Examination: CT brain head without contrast. 2-D sagittal coronal reconstructions Date and time of exam:November 03, 2024 10:42 PM INDICATIONS: Left-sided body numbness today, acute brainstem infarct 7 mm on MRI brain November 02, 2024 COMPARISON: November 01, 2024 CTDI: vol (mGy):49 DLP: (mGycm):955 Technique: Multiple CT axial sections of the brain have been obtained, 5 mm slice thickness. Contrast has not been administered. 2-D sagittal, coronal reconstructions have been obtained Low dose protocols were performed. One or more of the following dose reduction techniques were used; automated exposure control, adjustment of the mA and/or KV according to patient size, use of iterative reconstruction technique. Findings: No significant ventricular enlargement. Intra-axial or extra-axial hemorrhage density is not seen. No mass effect or midline shift Basal cisterns are not remarkable. Fourth ventricle is midline. Cranial vault intact. Impression: No interval acute hemorrhage, mass effect or midline shift Please see the brain MRI report November 02, 2024
[2024-11-03] MEDS: ATORVASTATIN CALCIUM 20 MG TABLET 80 MG PO (21:07)
[2024-11-04] VITALS (7 sets, daily range): BP systolic 131–159; BP diastolic 78–107; PULSE 62–97; RESP 11–22; TEMP 36.8–37.4; O2SAT 96–98; BMI 27.1; BMI 27.2
[2024-11-04] MEDS: SENNA TABLET 1 TAB PO (04:23)
[2024-11-04 05:02] LABS: Basophils % (Auto) 0 % (0-2.5); Eosinophils # (Auto) 0.1 Thou/mm3 (0.0-0.5); Eosinophils % (Auto) 0 % (0-10); Hematocrit 48.2 % (41.0-53.0); Hemoglobin 17.4 g/dL (13.5-16.0); Immature Granulocytes % (Auto) 0 % (0-0); Immature Granulocytes Auto 0.05 Thou/mm3 (0.00-0.00); Lymphocytes # (Auto) 1.4 Thou/mm3 (1.0-4.8); Lymphocytes % (Auto) 10 % (10-50); Mean Corpuscular HGB Conc 36.1 g/dl (31.0-37.0); Mean Corpuscular Hemoglobin 30.7 pg (25.0-35.0); Mean Corpuscular Volume 85 fL (80-100); Monocytes # (Auto) 0.9 Thou/mm3 (0.0-0.8); Monocytes % (Auto) 7 % (0-12); Neutrophils # (Auto) 11.6 Thou/mm3 (1.8-7.7); Neutrophils % (Auto) 83 % (37-80); Nucleated Red Blood Cell % 0 /100 WBC (0); Platelet Count 306 Thou/mm3 (140-440); RDW Standard Deviation 35.4 fL (35.1-43.9); Red Blood Count 5.66 Miln/mm3 (4.50-5.90)
[2024-11-04] MEDS: PIPER/TAZO 3.375 GM PREMIX 3.375 GM/50 ML BAG IV ×3 (05:05→21:03)
[2024-11-04 05:28] LABS: Alanine Aminotransferase 54 U/L (10-49); Albumin, Serum 4.6 gm/dL (3.5-5.0); Albumin/Globulin Ratio 1.7 (1.2-2.2); Alkaline Phosphatase 91 U/L (46-116); Anion Gap 11 (7-16); Aspartate Amino Transferase 35 U/L (0-34); BUN/Creatinine Ratio 8 Ratio (12-20); Bilirubin,Total 0.8 mg/dL (0.3-1.2); Blood Urea Nitrogen 9 mg/dL (9-23); Calcium 9.3 mg/dL (8.3-10.6); Calcium (Corrected) 9.3 mg/dL (8.5-10.1); Carbon Dioxide 27.5 mMol/L (20.0-31.0); Chloride 102 mMol/L (98-107); Creatinine (Component) 1.2 mg/dL (0.6-1.3); Estimated Creatinine Clearance 67.1 mL/min (>60); Globulin 2.7 gm/dL (2.3-3.5); Glucose 138 mg/dL (74-106); Magnesium 1.6 mg/dL (1.6-2.6); Osmolality,Calculated 280 (275-295); Phosphorous 3.2 mg/dL (2.4-5.1); Potassium 3.9 mMol/L (3.4-5.1); Sodium 140 mMol/L (136-145); Total Protein 7.3 gm/dL (5.7-8.2); eGFR > 60 See Note
[2024-11-04] MEDS: ASPIRIN EC 81 MG TABEC PO (08:10)
[2024-11-04] MEDS: CLOPIDOGREL BISULFATE 75 MG TABLET PO (08:10)
--- NOTE | 2024-11-04 08:49 | PD.RESPRO ---
Documentation for date of: 11/04/24 Subjective Subjective Interval history: No acute overnight event. Had EMILY yesterday, no complications, tolerated well. Reports feeling better this morning. Tolerating oral intake without nausea or vomiting. Overall dizziness and lightheadedness slightly improved. BP 131/90, HR 62. Had mild LFT elevations, likely dehydration. Continued on ANTIBIOTICS for ESBL UTI. WBC 14.0, afebrile otherwise. No further intervention is foreseen cardiology perspective at this point. Cardiology will sign off, please consult as needed. Recommended cardiology workup outpatient with Holter monitor to evaluate for arrhythmia. Exam Vital Signs Temp Pulse Resp BP Pulse Ox O2 Del Method 98.2 F 62 22 H 131/90 H 96 Room Air 11/04/24 07:45 11/04/24 07:45 11/04/24 07:45 11/04/24 07:45 11/04/24 07:45 11/04/24 07:45 Narrative Exam GENERAL: AOx3, speaks in full sentence, NAD HEENT: NC/AC, PERRLA. CHronic cavity of right lower molar. 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 Objective Labs 11/04/24 04:40 11/04/24 04:40 Labs: Laboratory Results - last 24 hr 11/03/24 11/04/24 05:49 04:40 WBC 14.0 H D RBC 5.66 Hgb 17.4 H Hct 48.2 MCV 85 MCH 30.7 MCHC 36.1 RDW Std Deviation 35.4 Plt Count 306 Neut % (Auto) 83 H Lymph % (Auto) 10 [place] % (Auto) 7 Eos % (Auto) 0 Baso % (Auto) 0 Neut # (Auto) 11.6 H Lymph # (Auto) 1.4 [place] # (Auto) 0.9 H Eos # (Auto) 0.1 Baso # (Auto) 0.0 Immature Gran # (Auto) 0.05 H Absolute Nucleated RBC 0.00 Immature Gran % 0 Nucleated RBC % 0 ESR 15 Sodium 140 Potassium 3.9 Chloride 102 Carbon Dioxide 27.5 Anion Gap 11 BUN 9 Creatinine 1.2 Estim Creat Clear Calc 67.1 eGFR > 60 BUN/Creatinine Ratio 8 L Glucose 138 H Calculated Osmolality 280 Calcium 9.3 Corrected Calcium 9.3 Phosphorus 3.2 Magnesium 1.6 Total Bilirubin 0.8 AST 35 H ALT 54 H Alkaline Phosphatase 91 C-Reactive Prot, Quant < 0.5 Total Protein 7.3 Albumin 4.6 Globulin 2.7 Albumin/Globulin Ratio 1.7 ABG Interpretation ABG results: 11/01/24 13:20 VBG pH 7.42 VBG pCO2 42 VBG pO2 50 VBG Base Excess 2 Quality Measures Quality Measures VTE prophylaxis Assessment & Plan Assessment Current Active Medications: Generic Name Dose Route Start Last Admin Trade Name Freq PRN Reason Stop Dose Admin Acetaminophen 650 mg 11/01/24 17:51 11/01/24 18:05 Acetaminophen 325 Mg Tablet PO 12/01/24 17:50 650 mg Q6H PRN Administration Fever >101.5 Aspirin 81 mg 11/02/24 09:00 11/04/24 08:10 Aspirin Ec 81 Mg Tabec PO 12/02/24 08:59 81 mg QDAY TONG Administration Atorvastatin Calcium 80 mg 11/02/24 21:00 11/03/24 21:07 Atorvastatin Calcium 20 Mg Tablet PO 12/02/24 20:59 80 mg HS TONG Administration Clopidogrel Bisulfate 75 mg 11/02/24 11:45 11/04/24 08:10 Clopidogrel Bisulfate 75 Mg Tablet PO 12/02/24 11:44 75 mg QDAY TONG Administration Promethazine HCl 12.5 mg/ 50.5 mls @ 2.5 mls/min 11/03/24 11:43 11/03/24 12:56 Sodium Chloride IV 12/01/24 17:52 Infused Q6HR PRN Infusion Nausea Or Vomiting, dizziness Piperacillin/Tazobactam/Dextrose 3.375 gm in 50 mls @ 12.5 mls/hr 11/03/24 22:00 11/04/24 05:05 Zosyn IV 11/10/24 21:59 12.5 mls/hr Q8HR TONG Administration Meclizine HCl 25 mg 11/02/24 11:40 11/03/24 05:27 Meclizine Hcl 25 Mg Tablet PO 12/02/24 11:39 25 mg TID PRN Administration DIZZINESS Ondansetron HCl 4 mg 11/01/24 17:51 11/01/24 22:45 Ondansetron Inj 2 Mg/Ml Inj 2 Ml IV 12/01/24 17:50 4 mg Q6H PRN Administration NAUSEA OR VOMITING Protocol Oxycodone/Acetaminophen 1 tab 11/01/24 17:51 Oxycodone/Apap 5/325 Tablet PO 11/06/24 17:50 Q6H PRN PAIN SCALE 4-6 (Moderate Sennosides 1 tab 11/04/24 07:00 Senna Tablet PO 12/04/24 06:59 QDAY PRN CONSTIPATION Protocol Plan This is a 34 year-old male with PMHx migraine headache, childhood seizures, admitted 06/01/2025 for stroke work-up, found to have 7 mm acute infarct of the right brainstem at the medulla level on MRI. Continued on stroke protocol under the management of neurology team. Cardiology consulted for TTE/EMILY. Acute Stroke 7 mm acute right brainstem/medulla infarct. Presented with blurry vision, dizziness, and right-sided weakness. Head CT suspicious for early infarct of the right occipital lobe. MRI showed 7 mm acute infarct of the right brainstem at the medulla level. CTA head/neck no significant neck arterial stenosis or large vessel arterial occlusion. TG 79, cholesterol 194, LDL 143, HDL 34, TSH 0.57, A1c 5.1. Repeat head CT showed no interval acute hemorrhage, mass effect or midline shift. EMILY showed no evidence of PFO, negative bubble study, thrombus, or other structural abnormalities. No cardiac sources of embolism identified. Further investigation may be needed to explore non-cardiac causes of stroke. Continue ASPIRIN, statin, PLAVIX per neurology team recommendations. Palpitations Reports occasional palpitations occurring with exertion, not at rest. The most part not bothersome, reports never being woken up with palpitations at night. Denies ever having chest pain. Reports mild shortness of breath over the last 2 weeks secondary to upper respiratory infection. EKG showing sinus rhythm, HR 65, incomplete RBBB. He had an echo previously from 2022 when he was admitted for headache, showing sinus tachycardia, HR 109, possible left atrial enlargement, incomplete RBBB again. Low suspicion for major arrhythmia, less likely to be contributing to his presentation. Recommended cardiology workup outpatient with Holter monitor to evaluate for arrhythmia. Polycythemia Hgb slightly elevated, chronically mildly elevated on previous visits, but unlikely to be contributor to his stroke. Denies history of smoking. Primary team working him up for coagulopathy disorders. Chronic cavity Exam showed chronic, severe lower right molar cavity. Face CT showed chronic cavity and bony destruction of upper and lower mandibles on the right. Currently on ABX. Management of rest of the medical conditions as per primary team and other consultants. Thank you for the consult and allowing me to participate in the care of the patient. Cardiology will continue to follow. E coli UTI Primary team believes ESBL on urine culture likely contaminant, afebrile, asymptomatic. ANTIBIOTICS discontinued. Management of rest of the medical conditions as per primary team and other consultants. Thank you for the consult and allowing me to participate in the care of the patient. Cardiology will sign off, no further intervention from cardiology is needed at this time. Recommended patient follow-up with cardiology within 1 week to evaluate for arrhythmia. Please consult as needed. Case was discussed with attending, Dr. Mc. Stacy Martinez DO PGYI Attending Provider Attestation/Addendum I have personally seen and examined the patient separately on the above date of service and discussed the plan of care with the resident. I reviewed the resident Dr. Stacy Martinez excellent consultation progress note and agree with the resident findings and plan in the note above and have also edited the documentation to reflect my findings and plan. A 32-year-old male with a past medical history of migraine headache, childhood seizures, overweight presented to the emergency department for further evaluation of double vision, right-sided weakness, nausea and vomiting along with some dizziness, palpitations.. Patient was diagnosed with acute stroke with MRI showing 7 mm acute infarct of the right brainstem in the medulla. Also initial head CT was suspicious for early infarct of the right occipital lobe but CTA head and neck did not show any arterial stenosis or large vessel occlusion. EKG showed normal sinus rhythm with incomplete RBBB and no acute ST-T changes. Rest of the labs and vitals showed elevated blood pressure at 178/111 mmHg admission, mildly elevated creatinine and normal 1.3, rest of the CBC BMP was normal except for a positive UA. Patient was seen by the neurology during this admission and recommended echocardiogram to rule out any cardioembolic sources of shock given the possible right occipital lobe as well as acute infarct in the right brainstem at medications 1. 1. Acute stroke 2. Palpitations 3. Migraine headaches 4. Childhood seizures 5. Polycythemia 6. Overweight Appropriate indication for EMILY given the acute stroke in young adult. Patient did not have any kind of chest pain chest pressure shortness of breath the cardiac complaints. He does have some palpitations but EKG and telemetry shows normal sinus rhythm. Will need to continue to follow-up as outpatient with cardiology for further Holter monitor. TSH A1c and lipid profile for further cardiac and stroke risk assessment. LDL is 143 and recommend high intensity statin, cholesterol is 194, HDL is 35 Echocardiogram completed showed normal LV size and function, normal RV size and function. Estimated LVEF is 60 to 65%. No regional valvular abnormalities. EMILY completed yesterday evening and there was no evidence of any PFO or ASD. Bubble study was negative. There was no evidence of any LA or ANA thrombus. LV and RV size and function was normal Patient doing well post EMILY this morning without any complications and will sign off for now. Please call us with any questions or concerns. Shaun Mc M.D. Interventional Cardiology
--- NOTE | 2024-11-04 11:54 | PD.RESPRO ---
Documentation for date of: 11/04/24 Subjective Subjective Interval history: Patient was seen and examined at bedside. Yesterday order for the patient ESR and CRP has screening to see if there is an indication of vasculitis however they were negative. Overnight patient reported that the left side of the body feels cold and the right side feels warm. On evaluation patient was found to have decreased temperature sensation on his left side. The night team already ordered for the patient repeat CT scan which came back negative for any hemorrhage or mass effect. 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 Her vitals are within normal limits, his WBC today increased to 14, EMILY was done by the cardiology team and it was negative for any intracardiac pathology. Urine culture showed ESBL patient was started on Zosyn and will hold his Augmentin yesterday. Exam Vital Signs Temp Pulse Resp BP Pulse Ox O2 Del Method 98.2 F 62 22 H 131/90 H 96 Room Air 11/04/24 07:45 11/04/24 07:45 11/04/24 07:45 11/04/24 07:45 11/04/24 07:45 11/04/24 07:45 Narrative Exam GEN: AOx3, able to speak full sentences HEENT: NC/AC, PERRLA, oral cavity examination showed infected tooth on the right side, surrounded by mild discharge. No lymph node enlargement, no redness, no swelling or lump. CVS: RRR, S1-S2 present, no murmurs appreciated RESP: CTAB GI: soft, mildly distended, non tender, NBS MSK: able to move all 4 limbs, no lower extremity edema SKIN: warm and dry APPLICATIONS SCIENTIST: Mild facial droop, positive rotatory nystagmus, tongue deviation, slight weakness in the right upper extremity. Decreased temperature sensation on the left side, no slurred speech. Objective Labs 11/04/24 04:40 11/04/24 04:40 Labs: Laboratory Results - last 24 hr 11/03/24 11/04/24 05:49 04:40 WBC 14.0 H D RBC 5.66 Hgb 17.4 H Hct 48.2 MCV 85 MCH 30.7 MCHC 36.1 RDW Std Deviation 35.4 Plt Count 306 Neut % (Auto) 83 H Lymph % (Auto) 10 Larue % (Auto) 7 Eos % (Auto) 0 Baso % (Auto) 0 Neut # (Auto) 11.6 H Lymph # (Auto) 1.4 Larue # (Auto) 0.9 H Eos # (Auto) 0.1 Baso # (Auto) 0.0 Immature Gran # (Auto) 0.05 H Absolute Nucleated RBC 0.00 Immature Gran % 0 Nucleated RBC % 0 ESR 15 Sodium 140 Potassium 3.9 Chloride 102 Carbon Dioxide 27.5 Anion Gap 11 BUN 9 Creatinine 1.2 Estim Creat Clear Calc 67.1 eGFR > 60 BUN/Creatinine Ratio 8 L Glucose 138 H Calculated Osmolality 280 Calcium 9.3 Corrected Calcium 9.3 Phosphorus 3.2 Magnesium 1.6 Total Bilirubin 0.8 AST 35 H ALT 54 H Alkaline Phosphatase 91 C-Reactive Prot, Quant < 0.5 Total Protein 7.3 Albumin 4.6 Globulin 2.7 Albumin/Globulin Ratio 1.7 ABG Interpretation ABG results: 11/01/24 13:20 VBG pH 7.42 VBG pCO2 42 VBG pO2 50 VBG Base Excess 2 Quality Measures Quality Measures VTE prophylaxis Assessment & Plan Assessment Current Active Medications: Generic Name Dose Route Start Last Admin Trade Name Freq PRN Reason Stop Dose Admin Acetaminophen 650 mg 11/01/24 17:51 11/01/24 18:05 Acetaminophen 325 Mg Tablet PO 12/01/24 17:50 650 mg Q6H PRN Administration Fever >101.5 Aspirin 81 mg 11/02/24 09:00 11/04/24 08:10 Aspirin Ec 81 Mg Tabec PO 12/02/24 08:59 81 mg QDAY TONG Administration Atorvastatin Calcium 80 mg 11/02/24 21:00 11/03/24 21:07 Atorvastatin Calcium 20 Mg Tablet PO 12/02/24 20:59 80 mg HS TONG Administration Clopidogrel Bisulfate 75 mg 11/02/24 11:45 11/04/24 08:10 Clopidogrel Bisulfate 75 Mg Tablet PO 12/02/24 11:44 75 mg QDAY TONG Administration Promethazine HCl 12.5 mg/ 50.5 mls @ 2.5 mls/min 11/03/24 11:43 11/03/24 12:56 Sodium Chloride IV 12/01/24 17:52 Infused Q6HR PRN Infusion Nausea Or Vomiting, dizziness Piperacillin/Tazobactam/Dextrose 3.375 gm in 50 mls @ 12.5 mls/hr 11/03/24 22:00 11/04/24 05:05 Zosyn IV 11/10/24 21:59 12.5 mls/hr Q8HR TONG Administration Meclizine HCl 25 mg 11/02/24 11:40 11/03/24 05:27 Meclizine Hcl 25 Mg Tablet PO 12/02/24 11:39 25 mg TID PRN Administration DIZZINESS Ondansetron HCl 4 mg 11/01/24 17:51 11/01/24 22:45 Ondansetron Inj 2 Mg/Ml Inj 2 Ml IV 12/01/24 17:50 4 mg Q6H PRN Administration NAUSEA OR VOMITING Protocol Oxycodone/Acetaminophen 1 tab 11/01/24 17:51 Oxycodone/Apap 5/325 Tablet PO 11/06/24 17:50 Q6H PRN PAIN SCALE 4-6 (Moderate Sennosides 1 tab 11/04/24 07:00 Senna Tablet PO 12/04/24 06:59 QDAY PRN CONSTIPATION Protocol Plan A 34-year-old male patient with no past medical history presented to the ED due to acute onset of dizziness, double vision, and right-sided weakness. Patient reported that he woke up today at 12:30 PM with severe dizziness, double vision, right-sided weakness associated with ear fullness. Patient was admitted for stroke workup and neurology consultation. 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 Patient reported that he woke up today at 12:30 PM with severe dizziness, double vision, right-sided weakness associated with ear fullness. On examination patient was found to have Mild facial droop, positive nystagmus, tongue deviation, slight weakness in the right upper extremity. No slurred speech. Patient also found to have infected tooth in the right side area. initial CT scan was suspicious for early infarct of the right occipital lobe and was negative for any hemorrhage, however brain MRI was negative for any infarct. Head and neck CTA was negative for any significant arterial stenosis or large vessel occlusion. MR brain W/W, MRA brain W, corrected W completed on 11/02/2024 findings include: 7 mm acute infarct right brainstem, medulla level. Physical therapist recommended acute rehab, speech therapist recommended dysphagia 3, maxillofacial CT showed destruction of the mandible and maxilla secondary to dental cavities. No abscess seen. That could be a source for possible rheumatic fever and subsequently endocarditis. 11/03/2024 patient EMILY was negative for any intracardiac pathology, ESR and CRP came back negative, still pending on the autoimmune, polycythemia, homocystinuria, and hypercoagulability workup can be followed outpatient Plan ? Continue the patient on aspirin 81 mg daily ? Continue the patient on Plavix 75 mg p.o. daily ? Continue patient on Zofran 4 mg every 6 hours as needed ? Continue promethazine every 6 hours as needed for the vomiting with dizziness ? Started on meclizine 25 Mg p.o. 3 times daily as needed as per neurology recommendations ? Neurochecks every 4 hours ? Seizures precautions ? Field Sales Representative, Dr. Mc consulted. Appreciate recommendations ? Neurologist, Dr. Hill was consulted. Appreciate recommendations - Antiphospholipid antibodies, hypercoagulability workup, homocystinuria workup, and polycythemia vera workup were already sent pending results ? Factor V Leyden screening, c-ANCA to rule out vasculitis. #ESBL urine tract infection Patient was screened by the ED for urine culture and it came back positive for ESBL E. coli. Because he is a male patient, I because of the complexity of the case we decided to start the patient on antibiotics. Plan ? Start the patient on Zosyn 11/03? 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 No abscess seen. Plan ? Oral care ? Augmentin was switched to Zosyn for the urinary ESBL, should cover bacterial infection in the mandibular area. ? Follow-up outpatient settings with maxillofacial surgeon upon discharge Polycythemia nonspecified?improved Patient consistently has hemoglobin level above 16. No history of smoking. Liver and spleen ultrasound showed no abnormalities. Plan: ? Pending JAK2 and EPO levels. Follow-up outpatient for results Health maintenance: Disposition: Give 1 more day for IV antibiotics anticipated discharge tomorrow to acute rehab [facility]. Diet: Dysphagia 3 Lines: pIVs GI Prophylaxis: Pantoprazole Thrombo Prophylaxis: None CODE STATUS: Full code - Patient's plan and care discussed with my attending, Dr. Bryan Dockery MD Internal Medicine PGY-2 Attending Provider Attestation/Addendum I have discussed and was present for the essential components of the history, physical examination, diagnosis, and treatment plan with the resident. I agree with the patient's care as documented by the resident and amended herein by me. Edwin Adams, DO. Patient seen and evaluated this AM. Overnight the patient did have sensory changes now in his left arm, he states he has difficulty with temperature sensation hence overnight team did order a CT head which was negative. Per neurology this is a normal to expected finding after his initial infarct. Vital signs stable, patient afebrile overnight, significant labs did include a slight uptrend in WBC to 14, patient is growing ESBL E. coli in his urine however states he is asymptomatic and does not experience any dysuria, hematuria, incontinence etc. Tmax overnight 99.1. BUN and creatinine WNL. EMILY performed yesterday was clear, negative for any vegetations or abnormalities. At this time we will continue IV antibiotics for another day until we see improvement with labs and then the patient can be discharged to acute rehab where he has been accepted. Will also continue aspirin and Plavix and statin per neurology recommendations, patient will have to follow-up with his hypercoagulability workup on an outpatient basis. Patient will also need to follow-up with his dentist for severe cavities and bone destruction as demonstrated on maxillofacial CT scan here. Will continue Zosyn for now and continue to monitor closely. The patient's sister was at bedside, all questions were answered satisfactorily. Although this document has been carefully reviewed, there may still be some phonetic and other typographical errors. These errors are purely grammatical due to imperfections in the software program and should not be construed in any way to compromise the substance of the patient's medical care during this visit.
--- NOTE | 2024-11-04 12:10 | PC.SS ---
SS recieved call from Kena Nair, she explained bed is available for patient today.
[2024-11-04] MEDS: PANTOPRAZOLE 40 MG TABLET PO (13:41)
--- NOTE | 2024-11-04 17:49 | PC.NURSE ---
Notified MD of pt report of increased heaviness in right arm and right calf. said they will come see pt.
[2024-11-04] MEDS: ATORVASTATIN CALCIUM 20 MG TABLET 80 MG PO (21:02)
[2024-11-05] VITALS (9 sets, daily range): BP systolic 132–155; BP diastolic 73–104; PULSE 73–95; RESP 14–20; TEMP 36.6–37.1; O2SAT 97–98
[2024-11-05] MEDS: PIPER/TAZO 3.375 GM PREMIX 3.375 GM/50 ML BAG IV ×3 (05:07→21:07)
[2024-11-05 05:59] LABS: Basophils % (Auto) 0 % (0-2.5); Eosinophils # (Auto) 0.1 Thou/mm3 (0.0-0.5); Eosinophils % (Auto) 2 % (0-10); Hematocrit 50.1 % (41.0-53.0); Hemoglobin 17.7 g/dL (13.5-16.0); Immature Granulocytes % (Auto) 0 % (0-0); Immature Granulocytes Auto 0.04 Thou/mm3 (0.00-0.00); Lymphocytes # (Auto) 1.8 Thou/mm3 (1.0-4.8); Lymphocytes % (Auto) 20 % (10-50); Mean Corpuscular HGB Conc 35.3 g/dl (31.0-37.0); Mean Corpuscular Hemoglobin 31.1 pg (25.0-35.0); Mean Corpuscular Volume 88 fL (80-100); Monocytes # (Auto) 0.9 Thou/mm3 (0.0-0.8); Monocytes % (Auto) 9 % (0-12); Neutrophils # (Auto) 6.3 Thou/mm3 (1.8-7.7); Neutrophils % (Auto) 69 % (37-80); Nucleated Red Blood Cell % 0 /100 WBC (0); Platelet Count 292 Thou/mm3 (140-440); RDW Standard Deviation 37.2 fL (35.1-43.9); White Blood Count 9.2 Thou/mm3 (3.8-10.6)
[2024-11-05 06:19] LABS: Alanine Aminotransferase 73 U/L (10-49); Albumin, Serum 4.7 gm/dL (3.5-5.0); Albumin/Globulin Ratio 1.7 (1.2-2.2); Alkaline Phosphatase 98 U/L (46-116); Anion Gap 8 (7-16); Aspartate Amino Transferase 44 U/L (0-34); BUN/Creatinine Ratio 9 Ratio (12-20); Bilirubin,Total 0.6 mg/dL (0.3-1.2); Blood Urea Nitrogen 15 mg/dL (9-23); Calcium 9.9 mg/dL (8.3-10.6); Calcium (Corrected) 9.9 mg/dL (8.5-10.1); Carbon Dioxide 31.8 mMol/L (20.0-31.0); Chloride 103 mMol/L (98-107); Creatinine (Component) 1.6 mg/dL (0.6-1.3); Estimated Creatinine Clearance 50.3 mL/min (>60); Globulin 2.7 gm/dL (2.3-3.5); Glucose 98 mg/dL (74-106); Magnesium 1.9 mg/dL (1.6-2.6); Osmolality,Calculated 285 (275-295); Phosphorous 3.5 mg/dL (2.4-5.1); Potassium 4.7 mMol/L (3.4-5.1); Sodium 143 mMol/L (136-145); Total Protein 7.4 gm/dL (5.7-8.2); eGFR 57 See Note
[2024-11-05 08:47] LABS: Creatine Kinase 64 U/L (34-171)
[2024-11-05] MEDS: CLOPIDOGREL BISULFATE 75 MG TABLET PO (09:59)
[2024-11-05] MEDS: DOCUSATE SOD 100 MG CAPSULE PO (09:59)
[2024-11-05] MEDS: METOCLOPRAMIDE 5 MG TABLET PO ×3 (09:59→21:07)
[2024-11-05] MEDS: ASPIRIN EC 81 MG TABEC PO (09:59)
[2024-11-05] MEDS: POLYETHYLENE GLYCOL 17 GM PACKET PO (09:59)
[2024-11-05] MEDS: PANTOPRAZOLE 40 MG TABLET PO (09:59)
[2024-11-05] MEDS: RINGERS LACTATED 1000 ML 1,000 ML 999 ML IV (10:03)
--- NOTE | 2024-11-05 10:16 | PC.SS ---
Addendum entered by Myla Marie 11/05/24 13:30: [facility] stated they may accept patient tomorrow, 11/06/24. Unable to accept today due to doctor and staff shortage. Kena Nair #[phone]. Original Note: [id number] SS attempted to contact [facility] at to inquire about acceptance. No response given, Dr. Adams informed. SS to support patient with ambulance transport when discharge occurs. 101 7SS attempted to contact Tammy from [facility], no success. A message was left explaining patient may discharge today and seeking acceptance for today at [facility].
[2024-11-05 12:34] LABS: Anion Gap 10 (7-16); BUN/Creatinine Ratio 11 Ratio (12-20); Blood Urea Nitrogen 16 mg/dL (9-23); Calcium 9.3 mg/dL (8.3-10.6); Carbon Dioxide 27.5 mMol/L (20.0-31.0); Chloride 104 mMol/L (98-107); Creatinine (Component) 1.5 mg/dL (0.6-1.3); Estimated Creatinine Clearance 53.6 mL/min (>60); Glucose 106 mg/dL (74-106); Osmolality,Calculated 282 (275-295); Potassium 4.1 mMol/L (3.4-5.1); Sodium 141 mMol/L (136-145); eGFR > 60 See Note
--- NOTE | 2024-11-05 13:12 | PD.RESDS ---
Planned Discharge Date 11/05/24 DS: Providers Provider Date of admission: 11/01/24 17:47 Primary care physician: Steve Ortega MD Admitting Provider: Kash Adams DO Attending Provider on Admission: Kash Adams DO Consults: 11/01/24 13:11 Consult to Neurology / Tele-Neurology Routine Comment: Consulting Provider: [facility] 11/01/24 17:54 Consult to Neurology / Tele-Neurology Urgent Comment: Nystagmus and Rt sided weakness Consulting Provider: Kermit Hill 11/01/24 17:55 Referral Physical Therapy Routine Comment: Physician Instructions: 11/02/24 11:45 Consult to Cardiology Routine Comment: susp embolic stroke, EMILY with bubble study Consulting Provider: Shaun Mc Attending Provider on DC: Linsey Dockery MD Discharging Provider: Linsey Dockery MD DS: Diagnosis Problem List Completed Was Problem List Reviewed/Reconciled?: Yes Hospital Course Hospital Course Hospital course: A 34-year-old male patient with no past medical history presented to the ED due to acute onset of dizziness, double vision, right-sided weakness when he woke up at 12:30 PM. Reported that his symptoms also associated with double vision. On evaluation in the ED patient was found to have blood pressure of 178/111, pulse rate of 62, other vitals within normal limits, labs showed hemoglobin of 17.1, U tox was negative, CT scan of the brain was negative for any hemorrhage or mass effect. Initial MRI was also negative for any infarct or hemorrhage. Head and neck CT angio was negative for any significant arterial stenosis or large vessel occlusion. Teleneurology was consulted at that time he recommended to continue the patient on aspirin and Plavix and admit the patient for stroke workup.. Another consult to in-house neurologist Dr Hill recommended to do an MRA which showed 7 mm acute infarct of the right brainstem at the medullary level. Patient continued to be on aspirin and Plavix as he was beyond the perez period. During his hospitalization patient continued to have dizziness, right-sided weakness, hiccups, and double vision, all his symptoms were improving slowly during his stay. Given the patient age we ordered for the patient polycythemia vera, antiphospholipid, homocystinuria, hypercoagulopathy workup however this still pending to result. We also ordered EMILY to rule out any source of embolization as the patient was found to have infected tooth on the right lower jaw however EMILY came back negative. PT evaluation for the patient recommended the patient to be discharged to a acute rehab facility. Speech therapist recommended dysphagia 2 diet at this time. On further evaluation patient was found to have ESBL E. coli UTI in which she was started on Zosyn IV and will continue on Macrobid as per culture and sensitivity results. The day of discharge renal status and creatinine went up to 1.6, most likely secondary to dehydration he was given 1 L of IV fluids which improved his serum creatinine to 1.5 patient will need to follow-up in outpatient settings on his BMP. At this time patient deemed to be clinically stable for discharge and was given the following instructions: - You have been started on a medication aspirin to prevent any further strokes. Take one table once a day - You have been started on a medication plavix to prevent any further strokes. Take one table once a day for 21 days, then stop. - Avoid taking any NSAIDS including alleve, ibuprofen and diclofenac as these can increase your risk of bleeding, - Follow-up with your primary care physician to repeat labs to monitor kidney functions. - You have been started on a cholesterol medication Atorvastatin. Take one tablet once a day at night. - He will need to follow-up with a dentist or maxillofacial surgeon for the management of the mild bone destruction on the right mandible and maxillary bone. - Continue activity as per physical therapy recommendations. - Follow up with Neurologist within 2 weeks of discharge. - Follow up with your primary care physician within 1 week of discharge. If you do not have a primary care physician, please follow up with .0.0.Dr. Linsey Dockery at the [facility] ([phone]) ? If you experience any new, worsening or persistent symptoms either call your primary doctor, or dial 911 or present to the emergency department. Discharge diagnosis #Right-sided brainstem acute ischemic infarct #E. coli ESBL UTI #Mandibular bone destruction #Maxillary dental caries with bone destruction #EMMY-improving #Polycythemia nonspecified - Patient's plan and care discussed with my attending, Dr. Bryan Dockery MD Internal Medicine PGY-2 Time Spent with Patient Time attestation: Total time spent providing and/or coordinating discharge services: Time spent: Greater than 30 minutes Exam Vital Signs Temp Pulse Resp BP Pulse Ox O2 Del Method 98.0 F 90 14 146/104 H 97 Room Air 11/05/24 11:35 11/05/24 11:35 11/05/24 11:35 11/05/24 11:35 11/05/24 11:35 11/05/24 11:35 Narrative Exam GEN: AOx3, able to speak full sentences HEENT: NC/AC, PERRLA, oral cavity examination showed infected tooth on the right side, surrounded by mild discharge. No lymph node enlargement, no redness, no swelling or lump. CVS: RRR, S1-S2 present, no murmurs appreciated RESP: CTAB GI: soft, mildly distended, non tender, NBS MSK: able to move all 4 limbs, no lower extremity edema SKIN: warm and dry VENDING MECHANIC: Mild facial droop, positive rotatory nystagmus improving significantly, mild tongue deviation, slight weakness in the right upper extremity still present. Decreased temperature sensation on the left side, no slurred speech. Discharge Plan Plan Patient Disposition: Xfer Other Disposition Comment: Xfer to Acute Rehab Facility - [facility] Patient condition on transfer: Stable and Benefits outweigh risks Care Plan Goals: - You have been started on a medication aspirin to prevent any further strokes. Take one table once a day - You have been started on a medication plavix to prevent any further strokes. Take one table once a day for 21 days, then stop. ? You have been started on a blood pressure medication, losartan. Take 1 tablet once a day ? You have been started on an antibiotic, Macrobid for your urine infection. Take 1 tablet twice a day for the next 5 days to complete the course. ? Take your blood pressure every morning and evening while at rest. Make a record of this and carry it to your primary care doctor. - Avoid taking any NSAIDS including alleve, ibuprofen and diclofenac as these can increase your risk of bleeding, - You have been started on a cholesterol medication Atorvastatin. Take one tablet once a day at night. - He will need to follow-up with a dentist or maxillofacial surgeon for the management of the mild bone destruction on the right mandible and maxillary bone. - Continue activity as per physical therapy recommendations. ? Recommend you follow-up with your primary doctor to investigate the reason for your hypertension. - Follow up with Neurologist within 2 weeks of discharge. - Follow up with your primary care physician within 1 week of discharge. If you do not have a primary care physician, please follow up with Dr. Linsey Dockery at the [facility] ([phone]) ? If you experience any new, worsening or persistent symptoms either call your primary doctor, or dial 911 or present to the emergency department. Prescriptions/Referrals Prescriptions/Med Rec: New atorvastatin 80 mg tablet 80 mg PO QPM 30 Days Qty: 30 2RF aspirin 81 mg tablet 81 mg PO QDAY 30 Days Qty: 30 2RF clopidogrel [Plavix] 75 mg tablet 75 mg PO QDAY 21 Days Qty: 21 0RF nitrofurantoin monohyd/m-cryst [Macrobid] 100 mg capsule 100 mg PO Q12H 5 Days Qty: 10 0RF Rx Instructions: must administer with a meal/food metoclopramide HCl 5 mg Tablet 5 mg PO Q8HR 7 Days Qty: 21 0RF losartan 25 mg tablet 25 mg PO QDAY 30 Days Qty: 30 1RF (DME) blood pressure monitor [Blood Pressure Kit] Kit See Rx Instructions .Route Qty: 1 0RF Rx Instructions: As directed Discontinued ibuprofen 600 MG tablet 600 mg PO Q6HR PRN (Reason: PAIN) Qty: 40 0RF Excedrin Tension Headache 500-65 mg tablet 1 tab PO Q6H PRN (Reason: pain) Qty: 30 0RF Referrals: Linsey Dockery MD [Resident] - Steve Ortega MD [Primary Care Provider] - Kermit Hill MD [Physician] - Patient/Caregiver Discharge Instructions Discharge Activity: as per physical therapy Education Materials: Symptoms of Stroke, What Is Ischemic Stroke?, Stroke: Taking Medicines, Stroke: Self-Care, Risk Factors for Stroke, Stroke Regaining Movement, Stroke Self Care After, Stroke Prevention Eating Healthy, Stroke Prevention Activity Print Language: Belgian Stand Alone Forms: Ginny Award Info., Patient Portal Info Letter Discharge Order Discharge Orders: Discharge (Routine); Ordered 11/06/24 Ordered By: Linsey Dockery Quality Discharge Quality Measures VTE prophylaxis MD Attestestation MD Attestation Patient not discharged on 05 November as expected, see discharge summary for 06 November
[2024-11-05] MEDS: SODIUM CHLORIDE 0.9% 1000 ML 1,000 ML 75 ML IV (14:53)
[2024-11-05] MEDS: ATORVASTATIN CALCIUM 20 MG TABLET 80 MG PO (21:06)
[2024-11-06] VITALS (7 sets, daily range): BP systolic 124–153; BP diastolic 89–112; PULSE 75–83; RESP 15–20; TEMP 36.1–37.4; O2SAT 96–97
[2024-11-06] MEDS: SODIUM CHLORIDE 0.9% 1000 ML 1,000 ML 75 ML IV (02:58)
[2024-11-06] MEDS: PIPER/TAZO 3.375 GM PREMIX 3.375 GM/50 ML BAG IV (05:21)
[2024-11-06] MEDS: METOCLOPRAMIDE 5 MG TABLET PO ×2 (05:21→14:26)
[2024-11-06 07:07] LABS: Basophils % (Auto) 0 % (0-2.5); Eosinophils # (Auto) 0.2 Thou/mm3 (0.0-0.5); Eosinophils % (Auto) 2 % (0-10); Hematocrit 47.4 % (41.0-53.0); Hemoglobin 16.9 g/dL (13.5-16.0); Immature Granulocytes % (Auto) 0 % (0-0); Immature Granulocytes Auto 0.03 Thou/mm3 (0.00-0.00); Lymphocytes # (Auto) 1.6 Thou/mm3 (1.0-4.8); Lymphocytes % (Auto) 18 % (10-50); Mean Corpuscular HGB Conc 35.7 g/dl (31.0-37.0); Mean Corpuscular Hemoglobin 30.8 pg (25.0-35.0); Mean Corpuscular Volume 87 fL (80-100); Monocytes # (Auto) 0.7 Thou/mm3 (0.0-0.8); Monocytes % (Auto) 8 % (0-12); Neutrophils # (Auto) 6.2 Thou/mm3 (1.8-7.7); Neutrophils % (Auto) 72 % (37-80); Nucleated Red Blood Cell % 0 /100 WBC (0); Platelet Count 295 Thou/mm3 (140-440); RDW Standard Deviation 36.3 fL (35.1-43.9); Red Blood Count 5.48 Miln/mm3 (4.50-5.90); White Blood Count 8.6 Thou/mm3 (3.8-10.6)
[2024-11-06 07:12] LABS: Alanine Aminotransferase 95 U/L (10-49); Albumin, Serum 4.5 gm/dL (3.5-5.0); Alkaline Phosphatase 100 U/L (46-116); Anion Gap 13 (7-16); Aspartate Amino Transferase 63 U/L (0-34); BUN/Creatinine Ratio 8 Ratio (12-20); Bilirubin,Total 0.5 mg/dL (0.3-1.2); Blood Urea Nitrogen 9 mg/dL (9-23); Calcium 9.1 mg/dL (8.3-10.6); Calcium (Corrected) 9.1 mg/dL (8.5-10.1); Chloride 103 mMol/L (98-107); Creatinine (Component) 1.1 mg/dL (0.6-1.3); Estimated Creatinine Clearance 73.1 mL/min (>60); Globulin 2.3 gm/dL (2.3-3.5); Glucose 139 mg/dL (74-106); Magnesium 1.8 mg/dL (1.6-2.6); Osmolality,Calculated 281 (275-295); Phosphorous 2.8 mg/dL (2.4-5.1); Potassium 3.6 mMol/L (3.4-5.1); Sodium 141 mMol/L (136-145); Total Protein 6.8 gm/dL (5.7-8.2); eGFR > 60 See Note
--- NOTE | 2024-11-06 08:27 | PC.NURSE ---
CALLED DR. OLEARY IN REGARD TO ELEVATED BP. RECEIVED ORDERS TO STOP FLUIDS AND RECHECK IN 1 HOUR.
[2024-11-06] MEDS: CLOPIDOGREL BISULFATE 75 MG TABLET PO (08:33)
[2024-11-06] MEDS: DOCUSATE SOD 100 MG CAPSULE PO (08:33)
[2024-11-06] MEDS: ASPIRIN EC 81 MG TABEC PO (08:33)
[2024-11-06] MEDS: PANTOPRAZOLE 40 MG TABLET PO (08:33)
--- NOTE | 2024-11-06 09:49 | PC.SS ---
Addendum [facility] by [facility] 11/06/24 14:17: Kena BUSTAMANTE informed SS transport is running behind will pickup/transport patient at 1430. DARREN Vivas informed of new ETA. Addendum entered by [facility] 11/06/24 13:56: DARREN Vivas inquiring about ETA, patient still has not been picked up by [facility]. SS contact KenaKorey [phone], she stated she would contact [facility] to confirm what delay was. SS awaiting for ETA update. Addendum entered by [facility] 11/06/24 11:06: SS informed by [facility] patient will be transported by [facility] today, at 1300. Accepting [address] Dr. Flowers. Nurse to Nurse report #[phone] provided. DARREN Vivas was provided # via phone. Original Note: Progress Notes, Labs, vitals, and EMILY results submitted via [facility] to [facility] for review. Pending approval from JasminKorey to initiate transport ETA. Jasmin stated [facility] will provide transportation for patient. SS informed by DARREN Vivas patient's BP is elevated, SS consulted with Dr. Duran and he stated patient is still able to discharge today.
--- NOTE | 2024-11-06 09:52 | PC.NURSE ---
DR. OLEARY MADE AWARE OF BP 153/104. STATES THAT HE'LL COME TO SEE PT.
[2024-11-06] MEDS: LOSARTAN POTASSIUM 25 MG TABLET PO (11:03)
--- NOTE | 2024-11-06 11:51 | ESDS_ITS ---
Planned Discharge Date 11/06/24 DS: Providers Provider Date of admission: 11/01/24 17:47 Primary care physician: Steve Ortega MD Admitting Provider: Kash Adams DO Attending Provider on Admission: Kash Adams DO Consults: 11/01/24 13:11 Consult to Neurology / Tele-Neurology Routine Comment: Consulting Provider: [facility] 11/01/24 17:54 Consult to Neurology / Tele-Neurology Urgent Comment: Nystagmus and Rt sided weakness Consulting Provider: Kermit Hill 11/01/24 17:55 Referral Physical Therapy Routine Comment: Physician Instructions: 11/02/24 11:45 Consult to Cardiology Routine Comment: susp embolic stroke, EMILY with bubble study Consulting Provider: Shaun Mc Attending Provider on DC: Kash Adams DO Discharging Provider: Wilfredo Duran MD DS: Diagnosis Problem List Completed Was Problem List Reviewed/Reconciled?: Yes Hospital Course Hospital Course Hospital course: A 34-year-old male patient with no past medical history presented to the ED due to acute onset of dizziness, double vision, right-sided weakness when he woke up at 12:30 PM. Reported that his symptoms also associated with double vision. On evaluation in the ED patient was found to have blood pressure of 178/111, pulse rate of 62, other vitals within normal limits, labs showed hemoglobin of 17.1, U tox was negative, CT scan of the brain was negative for any hemorrhage or mass effect. Initial MRI was also negative for any infarct or hemorrhage. Head and neck CT angio was negative for any significant arterial stenosis or large vessel occlusion. Teleneurology was consulted at that time he recommended to continue the patient on aspirin and Plavix and admit the patient for stroke workup.. Another consult to in-house neurologist Dr Hill recommended to do an MRA which showed 7 mm acute infarct of the right brainstem at the medullary level. Patient continued to be on aspirin and Plavix as he was beyond the perez period. During his hospitalization patient continued to have dizziness, right- sided weakness, hiccups, and double vision, all his symptoms were improving slowly during his stay. Given the patient age we ordered for the patient polycythemia vera, antiphospholipid, homocystinuria, hypercoagulopathy workup however this still pending to result. We also ordered EMILY to rule out any source of embolization as the patient was found to have infected tooth on the right lower jaw however EMILY came back negative. PT evaluation for the patient recommended the patient to be discharged to a acute rehab facility. Speech therapist recommended dysphagia 2 diet at this time. On further evaluation patient was found to have ESBL E. coli UTI in which she was started on Zosyn IV and will continue on Macrobid as per culture and sensitivity results. The day of discharge renal status and creatinine went up to 1.6, most likely secondary to dehydration he was given 1 L of IV fluids which improved his serum creatinine to 1.5 patient will need to follow-up in outpatient settings on his BMP. All patient's labs are now returning to his baseline. Currently patient is clinically stable and fit for discharge to acute rehab. Discharge diagnoses: #Right-sided brainstem acute ischemic infarct #E. 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 Take one table once a day - You have been started on a medication plavix to prevent any further strokes. Take one table once a day for 21 days, then stop. ? You have been started on a blood pressure medication, losartan. Take 1 tablet once a day ? You have been started on an antibiotic, Macrobid for your urine infection. Take 1 tablet twice a day for the next 5 days to complete the course. ? Take your blood pressure every morning and evening while at rest. Make a record of this and carry it to your primary care doctor. - Avoid taking any NSAIDS including alleve, ibuprofen and diclofenac as these can increase your risk of bleeding, - You have been started on a cholesterol medication Atorvastatin. Take one tablet once a day at night. - He will need to follow-up with a dentist or maxillofacial surgeon for the management of the mild bone destruction on the right mandible and maxillary bone. - Continue activity as per physical therapy recommendations. ? Recommend you follow-up with your primary doctor to investigate the reason for your hypertension. We recommend you get a plasma aldosterone to renin ratio blood tests. - Follow up with Neurologist within 2 weeks of discharge. - Follow up with your primary care physician within 1 week of discharge. If you do not have a primary care physician, please follow up with Dr. Linsey Dockery at the [facility] Residents clinic ([phone]) ? If you experience any new, worsening or persistent symptoms either call your primary doctor, or dial 911 or present to the emergency department. We are grateful to be able to participate in Mr. Rodrigues's care. We wish him the best. Plan of care discussed with Attending Dr. Bryan Duran MD PGY 1 Disclaimer: This note was dictated by speech recognition. Minor errors in compounding assistant may be present due to voice recognition software. Time Spent with Patient Time attestation: Total time spent providing and/or coordinating discharge services: Time spent: Greater than 30 minutes (39) Exam Vital Signs Temp Pulse Resp BP Pulse Ox O2 Del Method 99.3 F 75 15 153/104 H 97 Room Air 11/06/24 08:00 11/06/24 11:03 11/06/24 08:00 11/06/24 11:03 11/06/24 08:00 11/06/24 08:00 Narrative Exam GEN: AOx3, able to speak full sentences HEENT: NC/AC, PERRLA, oral cavity examination showed infected tooth on the right side, surrounded by mild discharge. No lymph node enlargement, no redness, no swelling or lump. CVS: RRR, S1-S2 present, no murmurs appreciated RESP: CTAB GI: soft, mildly distended, non tender, NBS MSK: able to move all 4 limbs, no lower extremity edema SKIN: warm and dry BUSINESS CENTER REPRESENTATIVE: Mild facial droop, positive rotatory nystagmus improving significantly, mild tongue deviation, power 5/5 and equal in all limbs. Decreased temperature sensation on the left side, no slurred speech. Impaired proprioception, unstable when attempts to ambulate. Discharge Plan Plan Patient Disposition: Xfer Other Disposition Comment: Xfer to Acute Rehab Facility - [facility] Patient condition on transfer: Stable and Benefits outweigh risks Care Plan Goals: - You have been started on a medication aspirin to prevent any further strokes. Take one table once a day - You have been started on a medication plavix to prevent any further strokes. Take one table once a day for 21 days, then stop. ? You have been started on a blood pressure medication, losartan. Take 1 tablet once a day ? You have been started on an antibiotic, Macrobid for your urine infection. Take 1 tablet twice a day for the next 5 days to complete the course. ? Take your blood pressure every morning and evening while at rest. Make a record of this and carry it to your primary care doctor. - Avoid taking any NSAIDS including alleve, ibuprofen and diclofenac as these can increase your risk of bleeding, - You have been started on a cholesterol medication Atorvastatin. Take one tablet once a day at night. - He will need to follow-up with a dentist or maxillofacial surgeon for the management of the mild bone destruction on the right mandible and maxillary bone. - Continue activity as per physical therapy recommendations. ? Recommend you follow-up with your primary doctor to investigate the reason for your hypertension. - Follow up with Neurologist within 2 weeks of discharge. - Follow up with your primary care physician within 1 week of discharge. If you do not have a primary care physician, please follow up with Dr. Linsey Dockery at the [facility] Residents clinic ([phone]) ? If you experience any new, worsening or persistent symptoms either call your primary doctor, or dial 911 or present to the emergency department. Prescriptions/Referrals Prescriptions/Med Rec: New atorvastatin 80 mg tablet 80 mg PO QPM 30 Days Qty: 30 2RF aspirin 81 mg tablet 81 mg PO QDAY 30 Days Qty: 30 2RF clopidogrel [Plavix] 75 mg tablet 75 mg PO QDAY 21 Days Qty: 21 0RF nitrofurantoin monohyd/m-cryst [Macrobid] 100 mg capsule 100 mg PO Q12H 5 Days Qty: 10 0RF Rx Instructions: must administer with a meal/food metoclopramide HCl 5 mg Tablet 5 mg PO Q8HR 7 Days Qty: 21 0RF losartan 25 mg tablet 25 mg PO QDAY 30 Days Qty: 30 1RF (DME) blood pressure monitor [Blood Pressure Kit] Kit See Rx Instructions .Route Qty: 1 0RF Rx Instructions: As directed Discontinued ibuprofen 600 MG tablet 600 mg PO Q6HR PRN (Reason: PAIN) Qty: 40 0RF Excedrin Tension Headache 500-65 mg tablet 1 tab PO Q6H PRN (Reason: pain) Qty: 30 0RF Referrals: Linsey Dockery MD [Resident] - Steve Ortega MD [Primary Care Provider] - Kermit Hill MD [Physician] - Patient/Caregiver Discharge Instructions Discharge Activity: as per physical therapy Education Materials: Symptoms of Stroke, What Is Ischemic Stroke?, Stroke: Taking Medicines, Stroke: Self-Care, Risk Factors for Stroke, Stroke Regaining Movement, Stroke Self Care After, Stroke Prevention Eating Healthy, Stroke Prevention Activity Print Language: Latvian Stand Alone Forms: Ginny Award Info., Patient Portal Info Letter Discharge Order Discharge Orders: Discharge (Routine); Ordered 11/06/24 Ordered By: Linsey Dockery Quality Discharge Quality Measures VTE prophylaxis Attestestation Attestation I have discussed and was present for the essential components of the discharge history, physical examination, diagnosis, and discharge treatment plan with the resident. I agree with the patient's discharge care as documented by the resident and amended herein by me. Edwin Adams, DO. The patient understood all discharge instructions, all questions were answered satisfactorily. The patient was instructed to return to the Emergency Department is symptoms worsened or persisted. Patient stable for discharge to acute rehab unit. Patient discharged on aspirin, Plavix, statin, losartan, Reglan for hiccups and a short course of Macrobid for UTI. Patient will need follow-up with primary care physician will likely be at our [facility], neurology, cardiology for possible outpatient Holter monitor, and a dentist as soon as possible. I explained the patient's diagnosis, treatment plan and follow-up instructions to the patient, his sister and his mother at time of bedside on day of discharge, all instructions understood, all questions answered satisfactorily. Patient was stable, afebrile, tolerating p.o. intake and ambulatory times discharge to [facility]U Although this document has been carefully reviewed, there may still be some phonetic and other typographical errors. These errors are purely grammatical due to imperfections in the software program and should not be construed in any way to compromise the substance of the patient's medical care during this visit.
--- NOTE | 2024-11-06 12:46 | PC.NURSE ---
CALLED REPORT TO [facility] AND SPOKE WITH YINKA. ALL QUESTIONS WERE ANSWERED.
[2024-11-07 07:02] LABS: Erythropoietin (EPO)* 8.6 mIU/mL (2.6-18.5)
[2024-11-09 06:26] LABS: Antithrombin III, Activity 117 % normal (80-135); Antithrombin III, Antigen 104 % normal (80-120); PTT-LA Screen 37 seconds (< OR = 40); Protein C Antigen, Total* 130 % normal (70-140); Protein S Antigen, Total* 98 % normal (70-140); dRVVT Screen 42 seconds (< OR = 45)
[2024-11-14 06:32] LABS: Factor V Leiden Mutation NEGATIVE; Myeloperoxidase Ab <1.0 AI (<1.0); Proteinase-3 Ab <1.0 AI (<1.0)
== END 2024-11-06 14:45 | disposition other institution (70) | DRG 45 ==
LOC: SERX 18:37 → SERHOLD 18:40 → S2NX 21:06
PROVIDERS: Student in an Organized Health Care Education/Training Program; Admitting Provider Student in an Organized Health Care Education/Training Program; Emergency Provider Emergency Medicine; PCP Family Medicine; Visit Provider Student in an Organized Health Care Education/Training Program
DX: I63.89 Other cerebral infarction (principal); H53.2 Diplopia; H55.00 Unspecified nystagmus; K04.7 Periapical abscess without sinus; D75.1 Secondary polycythemia; R29.704 NIHSS score 4; H53.8 Other visual disturbances; E86.0 Dehydration; I10 Essential (primary) hypertension; N39.0 Urinary tract infection, site not specified; R29.810 Facial weakness; N17.9 Acute kidney failure, unspecified; G81.91 Hemiplegia, unspecified affecting right dominant side; I45.10 Unspecified right bundle-branch block; K14.8 Other diseases of tongue; G46.3 Brain stem stroke syndrome; K76.0 Fatty (change of) liver, not elsewhere classified; K02.9 Dental caries, unspecified; G43.909 Migraine, unspecified, not intractable, without status migrainosus; G40.409 Other generalized epilepsy and epileptic syndromes, not intractable, without status epilepticus; Z16.12 Extended spectrum beta lactamase (ESBL) resistance; Z79.02 Long term (current) use of antithrombotics/antiplatelets; Z79.82 Long term (current) use of aspirin; B96.20 Unspecified Escherichia coli [E. coli] as the cause of diseases classified elsewhere; Z79.899 Other long term (current) drug therapy
CPT/HCPCS: 36415; 70450; 70486; 70496; 70498; 70546; 70548; 70551; 70553; 71045; 76705; 80048; 80053; 80061; 80307; 81001; 81241; 82436; 82550; 82570; 82668; 82803; 83036; 83090; 83605; 83735; 84100; 84133; 84300; 84443; 84484; 84703; 85025; 85300; 85301; 85302; 85305; 85610; 85613; 85652; 85730; 86021; 86036; 86140; 86146; 86147; 86148; 87040; 87077; 87086; 87186; 87502; 87811; 92526; 92610; 93005; 93306; 93312; 96361; 96374; 96375; 97162; 99285; A4649; A9579; J0131; J2060; J2250; J2405; J2543; J2550; J3010; J7030; J7040; J7120; Q9967; A9270

== ENCOUNTER 2024-11-28 09:39 | Outpatient (AMB) | payer MEDICAID, SELFPAY ==
[2024-11-28 09:50] VITALS: BP 124/83; PULSE 83; RESP 16; TEMP 36.7; O2SAT 98; BMI 24.3
--- NOTE | 2024-11-28 09:50 | ACNOTE_ITS ---
Vital Signs 11/28/24 09:50 Height 1.63 m Height Method Stated Weight 64.467 kg Weight Measurement Method Standing Scale BMI 24.3 BP 124/83 Blood Pressure Source Automatic Cuff Blood Pressure Location Right Upper Arm Position Sitting Respiration 16 Pulse 83 Pulse Source Monitor Temp 98.0 F Temp Source Oral Pulse Oximetry (%) 98 Oxygen Delivery Method Room Air Allergies/Meds Allergies & Medications Allergies No Known Allergies Allergy (Verified 11/28/24 09:51) Medication Reconciliation aspirin 81 mg tablet 81 mg PO QDAY 1 month #30 tabs 11/02/24 [Rx Confirmed 11/28/24] atorvastatin 80 mg tablet 80 mg PO QPM 1 month #30 tabs 11/02/24 [Rx Confirmed 11/28/24] blood pressure monitor (Blood Pressure Kit) #1 ea 11/06/24 [Rx Confirmed 11/28/24] losartan 25 mg tablet 25 mg PO QDAY 1 month #30 tabs 11/06/24 [Rx Confirmed 11/28/24] MA Intake Visit Data Collection New Patient or Established: Established Patient (seen at [facility] within 3 years) Seen by Clinical Staff ONLY (RN/MA): No Reason for Visit:: FOLLOW UP Pain Present Currently: No Pain scale:: 0 Pain Scale Used: Johnston-Knapp/Numerical Corn Crop Supervisor Required: No PCP or OBGYN visit in last 3 months: Yes Hx Now: No Do You Feel Safe at Home: Yes Authorities Contacted: N/A Smoking Status Smoking Status: Never smoker Immunization / Flu Flu Vaccine in the Last 12 Months: Yes Flu Vaccine Exclusion Criteria: No Exclusion Criteria Past Medical History Past Medical History CARDIAC: Negative Congestive Heart Failure RESPIRATORY: Negative Chronic Obstructive Pulmonary Disease (COPD) GENITOURINARY: Negative Renal Disease ENDOCRINE: Negative Diabetes Mellitus Type 1 or Diabetes Mellitus Type 2 Social History SMOKING STATUS: Smoking status: Never smoker ALCOHOL: Alcohol Intake: Never HOUSING: Housing: House LIVES WITH: Lives With: Family Patient Portal Questionaires PHQ-9 PHQ-2 Over the last 2 weeks, how often have you been bothered by any of the following problems? 1. Little interest or pleasure in doing things: not at all 2. Feeling down, depressed, or hopeless: not at all Total score: 0 PHQ-9 3. Trouble falling or staying asleep, or sleeping too much: Not at all 4. Feeling tired or having little energy: Not at all 5. Poor appetite or overeating: Not at all 6. Feeling bad about yourself - or that you are a failure or have let yourself or your family down: Not at all 7. Trouble concentrating on things, such as reading the newspaper or watching television: Not at all 8. Moving or speaking so slowly that other people could have noticed? - Or the opposite - being so fidgety or restless that you have been moving around a lot more than usual: not at all 9. Thoughts that you would be better off or of hurting yourself in some way: Not at all Total score: 0 Source: Developed by Drs. Fahad Mosley, Demetrice Wong, Luís Vidal and colleagues, with an educational janel from [email or web address]. Depression screen completed yes Social History Living Situation History Housing: House Housing Other:: Pt lives with brothers and sister Tobacco History Smoking Status: Never smoker Alcohol History Alcohol Intake: Never Domestic Abuse History Do You Feel Safe at Home: Yes Review of Systems Report any current symptoms Only answer those that you have currently: Past Medical History Past Medical History Have you ever been diagnosed with any of the following: Cardiology Problems Congestive Heart Failure: No Respiratory Problems Chronic Obstructive Pulmonary Disease (COPD): No Genital/Urinary Problems Renal Disease: No Endocrine Problems Diabetes Mellitus Type 1: No Diabetes Mellitus Type 2: No History of Present Illness HPI Narrative A 34-year-old male patient with past medical history of 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 His stroke symptoms were dizziness, double vision, right-sided weakness, Today patient came for follow-up he mentioned that his symptoms are slowly improving, he reported that he is able to walk unassisted however he still somehow feel unbalanced. He reported that his blurry vision has been improving however he have some diplopia. His loss of sensation on the left side has been improving and now he started to feel some weird sensation with mild hand tingling. Reported he has significant improvement of his swallowing and he denied any history of choking except tickling sensation whenever he eats or drink. He reported that he still have some right side facial numbness that also has been improving. Patient was discharged from the acute rehab facility and was recommended to continue outpatient rehab and physical therapy. Up until this time he has not seen an outpatient neurologist. On review of other system patient reported that he has not seen a dentist for his mandibular bone destruction, he also reported that he feels some lump in his neck and he was told that he has a thyroid nodule and he is concerned about this nodule. Patient denied any history of loss of interest, low mood, change in appetite, or any ideas to hurt himself or others. He reported that his taking his medication regularly which include aspirin, Plavix, atorvastatin, lisinopril with no issue. Review of Systems Review of Systems Systems Reviewed: All systems reviewed, normal except as documented Objective/Exam Narrative Physical exam: GEN: AOx3, able to speak full sentences HEENT: NC/AC, oral mucosa moist, neck supple CVS: RRR, S1-S2 present, no murmurs appreciated RESP: CTAB GI: soft,non distended, non tender, NBS MSK: able to move all 4 limbs, no lower extremity edema SKIN: warm and dry RIBBON TIER: Very mild right-sided weakness, bilateral nystagmus was still seen. Assessment & Plan Diagnosis / Problem List (1) Stroke: Status: Acute Qualifiers: CVA mechanism: unspecified Qualified Code(s): I63.9 - Cerebral infarction, unspecified Assessment & Plan: Patient is 34 years old with no risk factors for stroke developed brainstem stroke. Brain MRI showed 7 mm acute infarct right brainstem, medulla level head and neck CT angio showed no significant neck arterial stenosis and no cerebral large vessel occlusion. Of the workup including EMILY, telemetry monitoring for 5 days, polycythemia vera, homocystinemia, hypercoagulability panel, antiphospholipid panel, all are negative. 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 Plan: ? Referral to outpatient neurologist Dr. Covarrubias in [place] ? Referral to outpatient physical therapy ? Referral to genetic counseling ? Referral to the quality assurance monitor chassis Dr. Snider in [place] ? Encouraged the patient to visit the dentist for evaluation ? Repeat CBC and CMP ? See the patient for high-sensitivity CRP to rule out any possible vasculitis ? Continue aspirin, Plavix, atorvastatin, lisinopril (2) Thyroid nodule: Status: Acute Assessment & Plan: Patient reported that he has been told that he has thyroid nodule and he is concerned about this nodule. Denied any bulging mass, any heat intolerance, palpitation, shortness of breath, denied any loss of weight or gain of weight. His TSH was normal when he was admitted to the hospital on 01 Nov 2024. Plan: ? Ultrasound of the neck soft tissue Orders: Orders hs-CRP* 1 Day I63.9 - Cerebral infarction, unspecified CBC 11/28/24 I63.9 - Cerebral infarction, unspecified Comprehensive Metabolic Panel 1 Day I63.9 - Cerebral infarction, unspecified Referrals Physical Therapy - Referral I63.9 - Cerebral infarction, unspecified Cardiology I63.9 - Cerebral infarction, unspecified Genetic Testing I63.9 - Cerebral infarction, unspecified Neurology I63.9 - Cerebral infarction, unspecified Additional Assessment Attending note: I, Fredy Beltre MD, attest that I was physically present for the drake portions of the service and evaluated the patient with the resident and I reviewed and discussed the case with the resident and agree with the resident's findings and plans of care as documented above. Fredy Beltre MD Physician Billing New Patient New Patient: E/M Level 3-CPT 46183 Office Procedures [facility] Level of Care Nursing/Assessment Patient Status: Established Patient Nursing Assessment/Reassessment: Medication Reconciliation, Update PMH in EMR and Vital Signs Coordination of Care: Complex Care and Chronic Disease 1-5, Consent,records obtained, informed consent, Education Simp Pt/Fam, Lab and Imaging orders, Results/Orders obtained and Staff clarify orders Established Patient Charge Established Patient Point Assignment: 105 Established Patient Point Charge: Level 3 (80-115)
== END 2024-11-28 11:47 | disposition home or self-care (01) ==
LOC: HODAHC 09:39
PROVIDERS: PCP Student in an Organized Health Care Education/Training Program; Referring Provider Student in an Organized Health Care Education/Training Program; Supervising Provider Internal Medicine; Visit Provider Student in an Organized Health Care Education/Training Program
DX: I63.9 Cerebral infarction, unspecified (principal); E04.1 Nontoxic single thyroid nodule
CPT/HCPCS: 99213; G0463

== ENCOUNTER → 2024-11-28 | Outpatient (CLI) | payer MEDICAID, SELFPAY ==
--- NOTE | 2024-11-28 11:14 | XR_ITS ---
Examination: Thyroid sonography complete TECHNIQUE: Grayscale sonographic images thyroid lobes Date and time: November 28, 2024 1127 hours INDICATIONS: Neck pain 2 days FINDINGS: Right thyroid 4.7 cm No solid nodules Left thyroid 4.4 cm Upper pole vascular nodule 10 x 6 x 6 mm IMPRESSION: 10 mm vascular upper pole left thyroid nodule
[2024-11-28 12:21] LABS: Basophils % (Auto) 0 % (0-2.5); Eosinophils # (Auto) 0.2 Thou/mm3 (0.0-0.5); Eosinophils % (Auto) 2 % (0-10); Hematocrit 45.7 % (41.0-53.0); Hemoglobin 15.7 g/dL (13.5-16.0); Immature Granulocytes % (Auto) 0 % (0-0); Immature Granulocytes Auto 0.02 Thou/mm3 (0.00-0.00); Lymphocytes # (Auto) 1.6 Thou/mm3 (1.0-4.8); Lymphocytes % (Auto) 20 % (10-50); Mean Corpuscular HGB Conc 34.4 g/dl (31.0-37.0); Mean Corpuscular Hemoglobin 30.8 pg (25.0-35.0); Mean Corpuscular Volume 90 fL (80-100); Monocytes # (Auto) 0.8 Thou/mm3 (0.0-0.8); Monocytes % (Auto) 10 % (0-12); Neutrophils # (Auto) 5.4 Thou/mm3 (1.8-7.7); Neutrophils % (Auto) 67 % (37-80); Nucleated Red Blood Cell % 0 /100 WBC (0); Platelet Count 265 Thou/mm3 (140-440); RDW Standard Deviation 38.6 fL (35.1-43.9)
[2024-11-28 12:36] LABS: Alanine Aminotransferase 63 U/L (10-49); Albumin, Serum 4.7 gm/dL (3.5-5.0); Alkaline Phosphatase 103 U/L (46-116); Anion Gap 7 (7-16); Aspartate Amino Transferase 29 U/L (0-34); BUN/Creatinine Ratio 6 Ratio (12-20); Bilirubin,Total 0.5 mg/dL (0.3-1.2); Blood Urea Nitrogen 7 mg/dL (9-23); Calcium 9.5 mg/dL (8.3-10.6); Calcium (Corrected) 9.5 mg/dL (8.5-10.1); Carbon Dioxide 28.6 mMol/L (20.0-31.0); Chloride 105 mMol/L (98-107); Creatinine (Component) 1.2 mg/dL (0.6-1.3); Globulin 2.3 gm/dL (2.3-3.5); Glucose 94 mg/dL (74-106); Osmolality,Calculated 279 (275-295); Potassium 4.4 mMol/L (3.4-5.1); Sodium 141 mMol/L (136-145); eGFR > 60 See Note
[2024-12-01 06:09] LABS: hs-CRP* 3.8 mg/L
== END | disposition home or self-care (01) ==
PROVIDERS: PCP Student in an Organized Health Care Education/Training Program; Referring Provider Student in an Organized Health Care Education/Training Program; Visit Provider Radiology Diagnostic Radiology
DX: E04.1 Nontoxic single thyroid nodule (principal); I63.9 Cerebral infarction, unspecified
CPT/HCPCS: 36415; 76536; 80053; 85025; 86141

== ENCOUNTER 2025-02-15 14:54 | Outpatient (AMB) | payer MEDICAID, SELFPAY ==
[2025-02-15 15:06] VITALS: BP 142/89; PULSE 88; RESP 18; TEMP 36.3; O2SAT 96; BMI 25.8
--- NOTE | 2025-02-15 15:06 | PD.RESCLINIC ---
Vital Signs 02/15/25 15:06 Height 1.63 m Height Method Stated Weight 68.606 kg Weight Measurement Method Standing Scale BMI 25.8 BP 142/89 H Blood Pressure Source Automatic Cuff Blood Pressure Location Left Upper Arm Position Sitting Respiration 18 Pulse 88 Pulse Source Monitor Temp 97.4 F Temp Source Oral Pulse Oximetry (%) 96 Oxygen Delivery Method Room Air Allergies/Meds Allergies & Medications Allergies No Known Allergies Allergy (Verified 02/15/25 15:07) Medication Reconciliation aspirin 81 mg tablet 81 mg PO QDAY 1 month #30 tabs 11/02/24 [Rx Confirmed 02/15/25] atorvastatin 80 mg tablet 80 mg PO QPM 1 month #30 tabs 11/02/24 [Rx Confirmed 02/15/25] blood pressure monitor (Blood Pressure Kit) #1 ea 11/06/24 [Rx Confirmed 11/28/24] losartan 25 mg tablet 25 mg PO QDAY 1 month #30 tabs 01/29/25 [Rx Confirmed 02/15/25] clopidogrel 75 mg tablet (Plavix) 75 mg PO QDAY 02/15/25 [History Confirmed 02/15/25] polymyxin B sulfate 10,000 unit-trimethoprim 1 mg/mL eye drops 2 drp Right eye QID 5 days #10 mL 02/20/25 [Rx] MA Intake Visit Data Collection New Patient or Established: Established Patient (seen at [facility] within 3 years) Seen by Clinical Staff ONLY (RN/NIKITA): No Pain Present Currently: No Pain scale:: 0 PCP or OBGYN visit in last 3 months: Yes Do You Feel Safe at Home: Yes Authorities Contacted: N/A Smoking Status Smoking Status: Never smoker Immunization / Flu Flu Vaccine in the Last 12 Months: No Flu Vaccine Exclusion Criteria: No Exclusion Criteria Past Medical History Past Medical History CARDIAC: Negative Congestive Heart Failure RESPIRATORY: Negative Chronic Obstructive Pulmonary Disease (COPD) GENITOURINARY: Negative Renal Disease ENDOCRINE: Negative Diabetes Mellitus Type 1 or Diabetes Mellitus Type 2 Social History SMOKING STATUS: Smoking status: Never smoker ALCOHOL: Alcohol Intake: Never HOUSING: Housing: House LIVES WITH: Lives With: Family Patient Portal Questionaires PHQ-9 PHQ-2 Over the last 2 weeks, how often have you been bothered by any of the following problems? 1. Little interest or pleasure in doing things: not at all PHQ-9 8. Moving or speaking so slowly that other people could have noticed? - Or the opposite - being so fidgety or restless that you have been moving around a lot more than usual: not at all Source: Developed by Drs. Fahad Mosley, Demetrice Wong, Luís Vidal and colleagues, with an educational janel from [employer]. Social History Living Situation History Housing: House Housing Other:: Pt lives with brothers and sister Tobacco History Smoking Status: Never smoker Alcohol History Alcohol Intake: Never Domestic Abuse History Do You Feel Safe at Home: Yes Review of Systems Report any current symptoms Only answer those that you have currently: Past Medical History Past Medical History Have you ever been diagnosed with any of the following: Cardiology Problems Congestive Heart Failure: No Respiratory Problems Chronic Obstructive Pulmonary Disease (COPD): No Genital/Urinary Problems Renal Disease: No Endocrine Problems Diabetes Mellitus Type 1: No Diabetes Mellitus Type 2: No History of Present Illness HPI Narrative A 34-year-old male patient with past medical history of 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 His stroke symptoms were dizziness, double vision, right-sided weakness, Today patient came for follow-up he mentioned that his symptoms are slowly improving, he reported that he is able to walk unassisted however he still somehow feel unbalanced. He reported that his blurry vision has been improving however he have some diplopia. His loss of sensation on the left side has been improving and now he started to feel some weird sensation with mild hand tingling. Reported he has significant improvement of his swallowing and he denied any history of choking except tickling sensation whenever he eats or drink. He reported that he still have some right side facial numbness that also has been improving. Patient was discharged from the acute rehab facility and was recommended to continue outpatient rehab and physical therapy. Up until this time he has not seen an outpatient neurologist. On review of other system patient reported that he has not seen a dentist for his mandibular bone destruction, he also reported that he feels some lump in his neck and he was told that he has a thyroid nodule and he is concerned about this nodule. Patient denied any history of loss of interest, low mood, change in appetite, or any ideas to hurt himself or others. He reported that his taking his medication regularly which include aspirin, Plavix, atorvastatin, lisinopril with no issue. 02/15/2025. Patient came to the office today because of right eye redness, greenish discharge, and mild blurry vision. He reported that because of the stroke he had decreased sensation and tingling on the affected side including the right eyelid and which he was keep rubbing at constantly. He denied any pain with eye movement, double vision, complete loss of vision, elevated blood pressure, fever or chills. Denied any similar symptoms among family members. Review of Systems Review of Systems Systems Reviewed: All systems reviewed, normal except as documented Objective/Exam Narrative Physical exam: GEN: AOx3, able to speak full sentences HEENT: NC/AC, right eye redness, mild yellow-greenish discharge, no change in vision acuity. No nystagmus. Oral mucosa moist, neck supple CVS: RRR, S1-S2 present, no murmurs appreciated RESP: CTAB GI: soft,non distended, non tender, NBS MSK: able to move all 4 limbs, no lower extremity edema SKIN: warm and dry ABSORBER OPERATOR: CN II-XII and Sensation grossly intact. Assessment & Plan Diagnosis / Problem List (1) Bacterial conjunctivitis: Status: Acute Assessment & Plan: Patient was seen due to right eye conjunctivitis. Because the patient has history of previous blurry vision episodes, history of stroke below the age of 40, we will try to rule out any type of vasculitis. At the same time we will treat as bacterial conjunctivitis. Plan ? Stat referral to network security engineer ? Polymyxin trimethoprim eyedrops every 4 a day for 5 days ? In case of worsening of your symptoms, please go to the ED as soon as possible Orders: Referrals Ophthalmology H10.9 - Unspecified conjunctivitis, I63.9 - Cerebral infarction, unspecified Additional Assessment Attending note: I, Fredy Beltre MD, attest that I was physically present for the drake portions of the service completed via telehealth, and I reviewed and discussed the case with the resident and agree with the resident's plans of care as documented above. Fredy Beltre MD Physician Billing Established Patient Established Patient: E/M Level 3-CPT 73568 Office Procedures [facility] Level of Care Nursing/Assessment Patient Status: Established Patient Nursing Assessment/Reassessment: Medication Reconciliation, Update PMH in EMR and Vital Signs Coordination of Care: Complex Care and Chronic Disease 1-5, Education Complex Pt/Fam, Results/Orders obtained and Staff clarify orders Established Patient Charge Established Patient Point Assignment: 90 Established Patient Point Charge: EP Level 3 (80-115)
== END 2025-02-15 15:56 | disposition home or self-care (01) ==
LOC: HODAHC 14:54
PROVIDERS: PCP Student in an Organized Health Care Education/Training Program; Referring Provider Student in an Organized Health Care Education/Training Program; Supervising Provider Internal Medicine; Visit Provider Student in an Organized Health Care Education/Training Program
DX: H10.89 Other conjunctivitis (principal); Z86.73 Personal history of transient ischemic attack (TIA), and cerebral infarction without residual deficits
CPT/HCPCS: 99213; G0463

== ENCOUNTER 2025-03-13 08:30 | Outpatient (RCR) | payer MEDICAID, SELFPAY ==
--- NOTE | 2025-03-01 12:06 | PT.OIERPT ---
PT OP Initial Eval Patient Information Outpatient Physical Therapy Treatment Date: 03/01/25 Visit Reasons: Cerebrovascular accident Medical Diagnosis: I63.9 Treatment Dx #1: Abnormal Gait Treatment Dx #2: Balance Deficits Start of Care: 03/01/25 Date of Onset: October 2024 Smoking Status Smoking Status: Never smoker Initial Assessment Subjective: Pt is a 34 y/o male reports of brainstem CVA in October 2024. Pt was first hospitalized at [facility] and transfer to [facility] in [place] for ~ 6 weeks. Pt has been feeling much better lately. Pt still has limitation with walking, balance, bending down, lifting, work duties, and performing recreational activities. Objective: BLE AROM: all motions are WNL BLE MMTs: grossly 4/5 Sharpen Romber sec with increase sway Modified CTSIB condition (eyes closed on foam): 4 sec with increase sway Assessment: Pt demonstrate functional BLE strength and mobility, however, still has balance deficits leading to difficulty with ADLs. Pt will benefit from physical therapy to work on balance and gait. Short Term and Liquor Store Manager Goals 1) Increase sharpen romberg to 30 sec in 8 wks to be able to perform chores 2) Increase modified CTSIB condition 4 to 30 sec in 8 wks to be able to perform recreational activities 3) Improve gait nautical instrument mechanic in 8 wks to be able to walk safely 4) Improve balance in 8 wks to be able to return back to work 5) Indep with HEP Treatment Plan 1) Manual Therapy 2) Therapeutic Activities 3) Therapeutic Exercises 4) Balance Training 5) Gait Training Frequency and Duration: 2 x wk for 8 wks Certification Dates: 03/01/25 to 05/31/25 Procedure Charges OP PT Eval Mod Complex 30 minutes: Yes
--- NOTE | 2025-03-06 11:46 | PT.ODAYNRPT ---
PT Outpatient Daily Note OP Daily Note Outpatient Physical Therapy Treatment Date: 03/06/25 Visit Reasons: Cerebrovascular accident Subjective: Pt feels his balance is slowly improving, however, left LE feels sensitive with prolonged activities. Pt continues to have double vision with certain head movement. Objective: Please see flow chart for list of ther ex performed Assessment: difficulty with balance exercises with narrow KARISHMA. Pt's tandem stance on airex improved with practice. Plan: Continue with PT Length of Time (minutes) of Treatment: 30 Minutes Procedure Charges Therapeutic Exercise 30 minutes: Yes
--- NOTE | 2025-03-09 09:27 | PT.ODAYNRPT ---
PT Outpatient Daily Note OP Daily Note Outpatient Physical Therapy Treatment Date: 03/09/25 Visit Reasons: Cerebrovascular accident Subjective: Pt's double vision is slowly improving. Pt still feels unsteady on his feet. Pt was slightly sore after last session Objective: Please see flow chart for list of ther ex performed Assessment: difficulty maintaining balance with tandem walk and modified to tandem stance and maintain balance for 10 sec x 2 laps. Plan: Continue with PT Length of Time (minutes) of Treatment: 30 Minutes Procedure Charges Therapeutic Exercise 30 minutes: Yes
--- NOTE | 2025-03-13 09:28 | PT.ODAYNRPT ---
PT Outpatient Daily Note OP Daily Note Outpatient Physical Therapy Treatment Date: 03/13/25 Visit Reasons: Cerebrovascular accident Subjective: Pt's balance is better still has difficulty with motions or movement going forward and backward Objective: Please see flow chart for list of ther ex performed Assessment: improved static tandem balance today and able to perform tandem walks. Plan: Continue with PT Length of Time (minutes) of Treatment: 30 Minutes Procedure Charges Therapeutic Exercise 30 minutes: Yes
== END 2025-03-13 23:59 | disposition home or self-care (01) ==
LOC: CPTX 08:30
PROVIDERS: PCP Student in an Organized Health Care Education/Training Program; Referring Provider Student in an Organized Health Care Education/Training Program; Visit Provider Student in an Organized Health Care Education/Training Program
DX: I69.398 Other sequelae of cerebral infarction (principal); R26.89 Other abnormalities of gait and mobility; R26.2 Difficulty in walking, not elsewhere classified
CPT/HCPCS: 97110; 97162

== ENCOUNTER 2025-03-16 12:58 | Outpatient (AMB) | payer MEDICAID, SELFPAY ==
--- NOTE | 2025-03-16 13:04 | PD.RESCLINIC ---
Vital Signs 03/16/25 13:07 Height 1.63 m Height Method Stated Weight 68.719 kg Weight Measurement Method Standing Scale BMI 25.8 BP 117/87 H Blood Pressure Source Automatic Cuff Blood Pressure Location Right Upper Arm Position Sitting Respiration 17 Pulse 84 Pulse Source Monitor Temp 97.5 F Temp Source Temporal Artery Scan Pulse Oximetry (%) 96 Oxygen Delivery Method Room Air Allergies/Meds Allergies & Medications Allergies No Known Allergies Allergy (Verified 03/16/25 13:08) Medication Reconciliation aspirin 81 mg tablet 81 mg PO QDAY 1 month #30 tabs 11/02/24 [Rx Confirmed 03/16/25] atorvastatin 80 mg tablet 80 mg PO QPM 1 month #30 tabs 11/02/24 [Rx Confirmed 03/16/25] blood pressure monitor (Blood Pressure Kit) #1 ea 11/06/24 [Rx Confirmed 03/16/25] losartan 25 mg tablet 25 mg PO QDAY 1 month #30 tabs 01/29/25 [Rx Confirmed 03/16/25] clopidogrel 75 mg tablet (Plavix) 75 mg PO QDAY 02/15/25 [History Confirmed 03/16/25] MA Intake Visit Data Collection New Patient or Established: Established Patient (seen at [facility] within 3 years) Seen by Clinical Staff ONLY (RN/MA): No Reason for Visit:: FORMS Pain Present Currently: No Pain scale:: 0 Pain Scale Used: Johnston-Knapp/Numerical Intervention Teacher Required: No PCP or OBGYN visit in last 3 months: Yes Date of Last PCP or OBGYN visit: 02/15/25 Do You Feel Safe at Home: Yes Authorities Contacted: N/A Smoking Status Smoking Status: Never smoker Immunization / Flu Flu Vaccine in the Last 12 Months: No Flu Vaccine Exclusion Criteria: No Exclusion Criteria Past Medical History Past Medical History CARDIAC: Negative Congestive Heart Failure RESPIRATORY: Negative Chronic Obstructive Pulmonary Disease (COPD) GENITOURINARY: Negative Renal Disease ENDOCRINE: Negative Diabetes Mellitus Type 1 or Diabetes Mellitus Type 2 Social History SMOKING STATUS: Smoking status: Never smoker SECOND HAND EXPOSURE: second hand exposure: No ALCOHOL: Alcohol Intake: Never HOUSING: Housing: House LIVES WITH: Lives With: Family Patient Portal Questionaires PHQ-9 PHQ-2 Over the last 2 weeks, how often have you been bothered by any of the following problems? 1. Little interest or pleasure in doing things: not at all 2. Feeling down, depressed, or hopeless: not at all Total score: 0 PHQ-9 3. Trouble falling or staying asleep, or sleeping too much: Not at all 4. Feeling tired or having little energy: Not at all 5. Poor appetite or overeating: Not at all 6. Feeling bad about yourself - or that you are a failure or have let yourself or your family down: Not at all 7. Trouble concentrating on things, such as reading the newspaper or watching television: Not at all 8. Moving or speaking so slowly that other people could have noticed? - Or the opposite - being so fidgety or restless that you have been moving around a lot more than usual: not at all 9. Thoughts that you would be better off or of hurting yourself in some way: Not at all Total score: 0 If you checked off any problems, how difficult have these problems made it for you to do your work, take care of things at home, or get along with other people?: not difficult at all Source: Developed by Drs. Fahad Mosley, Demetrice Wong, Luís Vidal and colleagues, with an educational janel from [employer]. Depression screen completed yes Social History Living Situation History Marital Status: Unknown Lives With: Family Housing: House Housing Other:: Pt lives with brothers and sister Tobacco History Smoking Status: Never smoker Second Hand Smoke Exposure: No Alcohol History Alcohol Intake: Never Domestic Abuse History Do You Feel Safe at Home: Yes Review of Systems Report any current symptoms Only answer those that you have currently: Past Medical History Past Medical History Have you ever been diagnosed with any of the following: Cardiology Problems Congestive Heart Failure: No Respiratory Problems Chronic Obstructive Pulmonary Disease (COPD): No Genital/Urinary Problems Renal Disease: No Endocrine Problems Diabetes Mellitus Type 1: No Diabetes Mellitus Type 2: No History of Present Illness HPI Narrative 34-year-old male patient with past medical history of 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 His stroke symptoms were dizziness, double vision, right-sided weakness, Today patient came for follow-up he mentioned that his symptoms are slowly improving, he reported that he is able to walk unassisted however he still somehow feel unbalanced. He reported that his blurry vision has been improving however he have some diplopia. His loss of sensation on the left side has been improving and now he started to feel some weird sensation with mild hand tingling. Reported he has significant improvement of his swallowing and he denied any history of choking except tickling sensation whenever he eats or drink. He reported that he still have some right side facial numbness that also has been improving. Patient was discharged from the acute rehab facility and was recommended to continue outpatient rehab and physical therapy. Up until this time he has not seen an outpatient neurologist. On review of other system patient reported that he has not seen a dentist for his mandibular bone destruction, he also reported that he feels some lump in his neck and he was told that he has a thyroid nodule and he is concerned about this nodule. Patient denied any history of loss of interest, low mood, change in appetite, or any ideas to hurt himself or others. He reported that his taking his medication regularly which include aspirin, Plavix, atorvastatin, lisinopril with no issue. 02/15/2025. Patient came to the office today because of right eye redness, greenish discharge, and mild blurry vision. He reported that because of the stroke he had decreased sensation and tingling on the affected side including the right eyelid and which he was keep rubbing at constantly. He denied any pain with eye movement, double vision, complete loss of vision, elevated blood pressure, fever or chills. Denied any similar symptoms among family members. 03/16/2025: In office appointment. Disability paperwork was filled out for patient with end date of June 2025 for an additional 3 months of disability leave. He continues difficulty with his vision, Rightward gaze is associated with worse dizziness and virtigo symptoms. He has sensory deficits on the L side with diminished sensation to temperature and pain and parasthesias on the R side. Patient has been unable to connect with neurologist nor opthalmologist because of his insurance. Objective/Exam Narrative Physical exam: GEN: AOx3, able to speak full sentences HEENT: NC/AC, right eye lids are slightly edematous, but without discharge or crusting on exam. no change in vision acuity. No nystagmus. Oral mucosa moist, neck supple CVS: RRR, S1-S2 present, no murmurs appreciated RESP: CTAB GI: soft,non distended, non tender, NBS MSK: able to move all 4 limbs, no lower extremity edema, Gait is slow (dizziness and some gait instability when turning/changing directions) SKIN: warm and dry VALVE INSERTER: CN II-XII and Sensation grossly intact. Assessment & Plan Diagnosis / Problem List (1) Stroke: Status: Acute Qualifiers: CVA mechanism: unspecified Qualified Code(s): I63.9 - Cerebral infarction, unspecified Assessment & Plan: Patient is 34 years old with no risk factors for stroke developed brainstem stroke. Brain MRI showed 7 mm acute infarct right brainstem, medulla level head and neck CT angio showed no significant neck arterial stenosis and no cerebral large vessel occlusion. Of the workup including EMILY, telemetry monitoring for 5 days, polycythemia vera, homocystinemia, hypercoagulability panel, antiphospholipid panel, all are negative. 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 He continues to work with PT Plan: ? Referral to outpatient neurologist Dr. Covarrubias in [place] ? Referral to outpatient physical therapy ? Referral to genetic counseling ? Referral to the pie cutter Dr. Snider in [place] ? Encouraged the patient to visit the dentist for evaluation ? Continue aspirin, Plavix, atorvastatin, lisinopril - try to connect patient to neurologist (unable to get care 2/2 medical insurance) - completed disability leave aperwork (2) Vertigo: Status: Acute Assessment & Plan: Persists post stroke - continues to have gait instability that is improving, he is able to tandem walk per his last PT sessions. Plan: - neurology referral - Continue with PT 2x per week (3) Bacterial conjunctivitis: Status: Acute Assessment & Plan: Right eye is improving with diminished swelling and crusting and drainage Plan: - referral to training analyst - continue with topical drops Plan Plan discussed with Dr. Ladarius Wong MD PGY1 Office Procedures [facility] Level of Care Nursing/Assessment Patient Status: Established Patient Nursing Assessment/Reassessment: Medication Reconciliation, Update PMH in EMR and Vital Signs Coordination of Care: Complex Care and Chronic Disease 1-5, Education Complex Pt/Fam, Consent,records obtained, informed consent, Education Simp Pt/Fam and Staff clarify orders Established Patient Charge Established Patient Point Assignment: 105 Established Patient Point Charge: EP Level 3 (80-115) TB Screening LTBI Screening: Has patient traveled, was born, or resided for at least 1 month, or frequent border crossing into a country with an elevated TB rate: No Immunosuppression, current or planned (HIV, organ transplant, treated with biologic agents, steroids, or other immunosuppression medication): No Close contact to someone with infectious TB disease during lifetime: No Homelessness or incarceration, current or past: No TB testing indicated at this time (at least 1 yes above): No
[2025-03-16 13:07] VITALS: BP 117/87; PULSE 84; RESP 17; TEMP 36.4; O2SAT 96; BMI 25.8
== END 2025-03-16 13:53 | disposition home or self-care (01) ==
LOC: HODAHC 12:58
PROVIDERS: Supervising Provider Internal Medicine; Visit Provider Internal Medicine
DX: I69.398 Other sequelae of cerebral infarction (principal); R20.8 Other disturbances of skin sensation; R20.2 Paresthesia of skin; R42 Dizziness and giddiness; H10.89 Other conjunctivitis
CPT/HCPCS: 99213; G0463

== ENCOUNTER 2025-04-10 08:30 | Outpatient (RCR) | payer MEDICAID, SELFPAY ==
--- NOTE | 2025-03-16 09:26 | PT.ODAYNRPT ---
PT Outpatient Daily Note OP Daily Note Outpatient Physical Therapy Treatment Date: 03/16/25 Visit Reasons: Cerebrovascular accident Subjective: Pt's been having a headache this AM and notice some neck pain. Pt forgot to take BP meds this morning. Pt has been practicing tandem balance at home and still has trouble with balance Objective: Please see flow chart for list of ther ex performed Assessment: improved tandem walks with better balance and less use of hands. Pt advised to check BP at home as well as take medication. If BP is high and consistently high throughout the day to head to ER or PCP. Pt gave verbal consent and understanding. Plan: Continue with PT Length of Time (minutes) of Treatment: 30 Minutes Procedure Charges Therapeutic Exercise 30 minutes: Yes
--- NOTE | 2025-03-20 09:09 | PT.ODAYNRPT ---
PT Outpatient Daily Note OP Daily Note Outpatient Physical Therapy Treatment Date: 03/20/25 Visit Reasons: Cerebrovascular accident Subjective: Pt's balance is much better. Pt mentioned he's been able to stand and walk with better balance Objective: Please see flow chart for list of ther ex performed Assessment: continue to improve with balance and overall LE strength Plan: Continue with PT Length of Time (minutes) of Treatment: 30 Minutes Procedure Charges Therapeutic Exercise 30 minutes: Yes
--- NOTE | 2025-03-23 13:54 | PT.ODAYNRPT ---
PT Outpatient Daily Note OP Daily Note Outpatient Physical Therapy Treatment Date: 03/23/25 Visit Reasons: Cerebrovascular accident Subjective: Pt is having difficulty seeing specialist due to insurance. Pt notice his vision still causes dizziness when turns head more so to the left. Overall balance is slowly improving. Objective: Please see flow chart for list of ther ex performed Assessment: patient exhibit unsteadiness with gaze stabilization exercise on the airex form. Tandem balance and walks are improving and able to maintain position with less use of hands Plan: Continue with PT Length of Time (minutes) of Treatment: 30 Minutes Procedure Charges Therapeutic Exercise 30 minutes: Yes
--- NOTE | 2025-03-27 09:51 | PTNOTE_ITS ---
PT Outpatient Daily Note OP Daily Note Outpatient Physical Therapy Treatment Date: 03/27/25 Visit Reasons: Cerebrovascular accident Subjective: Pt's balance is better, however, continues to have seizure like symptoms when he shakes his head side to side erratically. Pt has been refer to neurology and landscaping specialist but doesn't know when consultation is. Objective: Please see flow chart for list of ther ex performed Assessment: improving with balance head movement and change in center of gravity with reaching. Pt demonstrate erratic sitting head movement side to side which exhibit severe dizziness. Pt advised to called and follow up with neurology and ophthalmology. Pt gave verbal consent and understanding Plan: Continue with PT Length of Time (minutes) of Treatment: 30 Minutes Procedure Charges Therapeutic Exercise 30 minutes: Yes
--- NOTE | 2025-03-30 10:11 | PT.ODAYNRPT ---
PT Outpatient Daily Note OP Daily Note Outpatient Physical Therapy Treatment Date: 03/30/25 Visit Reasons: Cerebrovascular accident Subjective: Pt finally got an appt with neurology. Pt mentioned he's feeling dizzy this morning. Objective: Please see flow chart for list of ther ex perfromed Assessment: patient exhibit signs of vestibular impairment leading to balance deficits and difficulty maintaining center of gravity. Added more vestibular exercises incorporating head movement and eyes closed in sitting with good tolerance Plan: Continue with PT Length of Time (minutes) of Treatment: 30 Minutes Procedure Charges Therapeutic Exercise 30 minutes: Yes
--- NOTE | 2025-04-03 09:20 | PT.ODAYNRPT ---
PT Outpatient Daily Note OP Daily Note Outpatient Physical Therapy Treatment Date: 04/03/25 Visit Reasons: Cerebrovascular accident Subjective: Pt's been practicing some of the balance exercises at home and notice improvement. Pt finally got appt with neurology, cardiology, and ophthalmology. Objective: Please see flow chart for list of ther ex performed Assessment: progressing with dynamic balance and continues to have double vision in the right eye with VOR exercises Plan: Continue with PT Length of Time (minutes) of Treatment: 30 Minutes Procedure Charges Therapeutic Exercise 30 minutes: Yes
--- NOTE | 2025-04-06 09:43 | PT.ODAYNRPT ---
PT Outpatient Daily Note OP Daily Note Outpatient Physical Therapy Treatment Date: 04/06/25 Visit Reasons: Cerebrovascular accident Subjective: Pt's eye movement still causing imbalance with activities. Objective: Please see flow chart for list of ther ex performed Assessment: tolerate exercises with minimal pain and continues to show improvement with dynamic balance with head turns Plan: Continue with PT Length of Time (minutes) of Treatment: 30 Minutes Procedure Charges Therapeutic Exercise 30 minutes: Yes
--- NOTE | 2025-04-10 09:21 | PT.ODAYNRPT ---
PT Outpatient Daily Note OP Daily Note Outpatient Physical Therapy Treatment Date: 04/10/25 Visit Reasons: Cerebrovascular accident Subjective: Pt continues to experience disorientation with head turns which he's afraid to cross the crosswalk. Despite disorientation Pt feels this has been a lot of improvement with his balance. Objective: Please see flow chart for list of ther ex performed Assessment: decrease gait speed noted with slight balance deficits during gait with heads gazing on post-it note. Attempted SLB on airex right LE, however, unable and modified without airex with better static balance demonstrated Plan: Continue with PT Length of Time (minutes) of Treatment: 30 Minutes Procedure Charges Therapeutic Exercise 30 minutes: Yes
== END 2025-04-13 23:59 | disposition home or self-care (01) ==
LOC: CPTX 08:30
PROVIDERS: PCP Student in an Organized Health Care Education/Training Program; Referring Provider Student in an Organized Health Care Education/Training Program; Visit Provider Student in an Organized Health Care Education/Training Program
DX: I69.398 Other sequelae of cerebral infarction (principal); R26.89 Other abnormalities of gait and mobility; R26.2 Difficulty in walking, not elsewhere classified
CPT/HCPCS: 97110

== ENCOUNTER 2025-04-17 08:34 | Outpatient (RCR) | payer MEDICAID, SELFPAY ==
--- NOTE | 2025-04-17 09:26 | PT.ODAYNRPT ---
PT Outpatient Daily Note OP Daily Note Outpatient Physical Therapy Treatment Date: 04/17/25 Visit Reasons: cva Subjective: Pt reports he still gets dizzy with certain head movements and bending down. Objective: Please see flow sheet for ther ex list. Assessment: Added interventions completed with good tolerance. Pt instructed on balance on airex exercise with normal stance phase, no LOB minimal to no sway. Plan: Continue with poC. Length of Time (minutes) of Treatment: 30 Minutes Procedure Charges Therapeutic Exercise 30 minutes: Yes
== END 2025-05-13 23:59 | disposition home or self-care (01) ==
LOC: CPTX 08:34
PROVIDERS: PCP Student in an Organized Health Care Education/Training Program; Referring Provider Student in an Organized Health Care Education/Training Program; Visit Provider Student in an Organized Health Care Education/Training Program
DX: I69.398 Other sequelae of cerebral infarction (principal); R26.89 Other abnormalities of gait and mobility; R26.2 Difficulty in walking, not elsewhere classified
CPT/HCPCS: 97110

== ENCOUNTER 2025-04-19 21:09 | Emergency (ER) | payer MEDICAID, SELFPAY ==
[2025-04-19 21:10] VITALS: BMI 25.7
[2025-04-19 21:55] VITALS: BP 140/90; PULSE 97; RESP 18; TEMP 36.8; O2SAT 96
--- NOTE | 2025-04-19 21:55 | PD.EDEAR ---
ED Ear RME/HPI General Chief complaint: Ear Stated complaint: RIGHT EAR PAIN Time Seen by Provider: 04/19/25 21:46 Arrival date/time: 34-year-old male patient came in for evaluation regarding right-sided ear pain. This been ongoing for 1 week getting worse, severity moderate. Patient denies any sore throat denies any fever denies any headache denies any other complaints no medication was taken prior to ER visit. Related Data Home Medications ?Medication ?Instructions ?Recorded ?Confirmed clopidogrel 75 mg tablet (Plavix) 75 mg PO QDAY 02/15/25 03/16/25 Previous Rx's ?Medication ?Instructions ?Recorded aspirin 81 mg tablet 81 mg PO QDAY 1 month #30 tabs 11/02/24 atorvastatin 80 mg tablet 80 mg PO QPM 1 month #30 tabs 11/02/24 blood pressure monitor (Blood #1 ea 11/06/24 Pressure Kit) losartan 25 mg tablet 25 mg PO QDAY 1 month #30 tabs 01/29/25 amoxicillin 875 mg-potassium 1 tab PO BID #14 tabs 04/19/25 clavulanate 125 mg tablet [id number] 3.3 4 drp otic (ear) TID 7 days #10 mL 04/19/25 mg-3 mg-10 mg-0.5 mg/mL ear drops,susp (Cortisporin-TC) Allergies Allergy/AdvReac Type Severity Reaction Status Date / Time No Known Allergies Allergy Verified 03/16/25 13:08 Review of Systems Review of Systems Narrative Review of Systems: Review of system reviewed and within normal limits except mentioned in HPI ED Exam Narrative Physical exam: VITAL SIGNS: Reviewed. GENERAL APPEARANCE: Alert and interactive, follows commands, no acute distress, HEAD AND FACE: Non-traumatic. ENT: PERRL, pink conjunctivitis, eyelid no trauma, Mucous membrane moist. Right tympanic membrane with erythema, ear canal is red and swollen also with tenderness NECK: Supple, nontender, no nuchal rigidity. CHEST: No tenderness, no crepitus, no paradoxical movement, no retractions. LUNGS: Clear, well ventilated, symmetric, no rales, no wheezing, no ronchi, no stridor, good breath sounds bilaterally. HEART: Regular rate, regular rhythm, no murmur, no gallops. ABDOMEN: Soft, positive bowel sounds, nondistended, no guarding, nontender, no rebound, no masses, RECTAL: Deferred. GENITAL: Deferred. NEUROLOGICAL: Gross motor function intact sensory function intact, Appropriate for age. MUSCULOSKELETAL: low back nontender, full range of motion. EXTREMITIES: Nontender, full range of motion. SKIN: Color pink, dry, no rash, no lacerations, no abrasions, no contusions. LYMPHATICS: Deferred. Course Quality Measures none Orders Category Date Time Status Amoxicillin/Pot Clav 875 [Augmentin 875] Med 04/19/25 21:54 Once 1 tab PO X1 ONE Ibuprofen Tab [Motrin Tab] Med 04/19/25 21:54 Once 600 mg PO X1 ONE Ear Patient data External records reviewed:: None Clinical information provided by:: none Social determinants that could affect healthcare access:: none Patient has the following chronic illnesses:: History of stroke How is presenting disease/condition affected by chronic disease/condition?: uneffected by Evaluation data The following diagnostics were reviewed and interpreted by me:: other (specify) (None) Lab and/or radiology exams considered but not ordered:: None Interpretation Summary: None Medications / Prescriptions Medications or Prescriptions considered but not ordered:: None Medication administrations:: Augmentin and Motrin Consultations Consultation(s) initiated? (list below): No Diagnosis Most likely diagnosis given after review of the tests above:: otitis media, otitis externa Admission Indicated Admission indicated?: not indicated Admission Request Was there a request for admission?: No Disposition Plan Disposition Plan: Discharge Discharge Attestation Discharge Attestation: The patient and all family members were given an opportunity to ask questions and understood the discharge instructions. Discharge instructions specifically effects, indications for sooner follow up or return to the emergency department, and the expected course of current diagnosis. Patient condition: Stable Medical Decision Making MDM Narrative MDM Narrative: 34-year-old male patient came in for evaluation regarding right-sided ear pain. This been ongoing for 1 week getting worse, severity moderate. Patient denies any sore throat denies any fever denies any headache denies any other complaints no medication was taken prior to ER visit. Patient received Augmentin and Motrin for otitis media and otitis externa. Imaging or workup started at this time. Stable discharge home Discharge Plan Plan Patient Disposition: HOME (Self Care) Discharge Disposition comment: Stable Prescriptions/Referrals Prescriptions/Med Rec: New amoxicillin-pot clavulanate 875-125 mg tablet 1 tab PO BID Qty: 14 0RF Cortisporin-TC 3.3-3-10-0.5 mg/mL drops,suspension 4 drp otic (ear) TID 7 Days Qty: 10 0RF No Action clopidogrel [Plavix] 75 mg tablet 75 mg PO QDAY losartan 25 mg tablet 25 mg PO QDAY 30 Days Qty: 30 1RF atorvastatin 80 mg tablet 80 mg PO QPM 30 Days Qty: 30 2RF aspirin 81 mg tablet 81 mg PO QDAY 30 Days Qty: 30 2RF (DME) blood pressure monitor [Blood Pressure Kit] Kit See Rx Instructions .Route Qty: 1 0RF Rx Instructions: As directed Problem List Clinical Impression: Otitis externa, Otitis media Patient/Caregiver Discharge Instructions Discharge Activity: activity as tolerated Education Materials: When to Use Antibiotics Additional Instructions: Thank you for the opportunity for serving you today. You are stable for discharged . You are advised to: Follow-up with your PCP in 1 to 2 days Return to ED for worsening of symptoms Increase oral fluids Take medication as prescribed Print Language: Luxembourger Stand Alone Forms: Ginny Award Info., Patient Portal Info Letter
[2025-04-19] MEDS: AMOXICILLIN/POT CLAV 875 TABLET 1 TAB PO (22:09)
[2025-04-19] MEDS: IBUPROFEN TAB 600 MG TABLET PO (22:10)
== END 2025-04-19 22:51 | disposition home or self-care (01) ==
LOC: SERX 22:12
PROVIDERS: Emergency Provider Nurse Practitioner Family
DX: H60.91 Unspecified otitis externa, right ear (principal); H66.91 Otitis media, unspecified, right ear
CPT/HCPCS: 99281; A9270

== ENCOUNTER 2025-05-02 13:02 | Outpatient (AMB) | payer MEDICAID, SELFPAY ==
[2025-05-02 13:15] VITALS: BP 130/86; PULSE 112; RESP 17; TEMP 36.5; O2SAT 96; BMI 26.4
--- NOTE | 2025-05-02 13:15 | PD.RESCLINIC ---
Vital Signs 05/02/25 13:15 Height 1.63 m Height Method Stated Weight 70.364 kg Weight Measurement Method Standing Scale BMI 26.4 BP 130/86 H Blood Pressure Source Automatic Cuff Blood Pressure Location Right Upper Arm Position Sitting Respiration 17 Pulse 112 H Pulse Source Monitor Temp 97.7 F Temp Source Temporal Artery Scan Pulse Oximetry (%) 96 Oxygen Delivery Method Room Air Allergies/Meds Allergies & Medications Allergies No Known Allergies Allergy (Verified 05/02/25 13:16) Medication Reconciliation aspirin 81 mg tablet 81 mg PO QDAY 1 month #30 tabs 11/02/24 [Rx Confirmed 05/02/25] atorvastatin 80 mg tablet 80 mg PO QPM 1 month #30 tabs 11/02/24 [Rx Confirmed 05/02/25] blood pressure monitor (Blood Pressure Kit) #1 ea 11/06/24 [Rx Confirmed 05/02/25] losartan 25 mg tablet 25 mg PO QDAY 1 month #30 tabs 01/29/25 [Rx Confirmed 05/02/25] clopidogrel 75 mg tablet (Plavix) 75 mg PO QDAY 02/15/25 [History Confirmed 05/02/25] amoxicillin 875 mg-potassium clavulanate 125 mg tablet 1 tab PO BID #14 tabs 04/19/25 [Rx Confirmed 05/02/25] MA Intake Visit Data Collection Pain Present Currently: No Pain scale:: 0 PCP or OBGYN visit in last 3 months: Yes Smoking Status Smoking Status: Never smoker Immunization / Flu Flu Vaccine in the Last 12 Months: No Flu Vaccine Exclusion Criteria: Refused by Patient Past Medical History Past Medical History CARDIAC: Negative Congestive Heart Failure RESPIRATORY: Negative Chronic Obstructive Pulmonary Disease (COPD) GENITOURINARY: Negative Renal Disease ENDOCRINE: Negative Diabetes Mellitus Type 1 or Diabetes Mellitus Type 2 Social History SMOKING STATUS: Smoking status: Never smoker SECOND HAND EXPOSURE: second hand exposure: No ALCOHOL: Alcohol Intake: Never HOUSING: Housing: House LIVES WITH: Lives With: Family Patient Portal Questionaires PHQ-9 PHQ-2 Over the last 2 weeks, how often have you been bothered by any of the following problems? 1. Little interest or pleasure in doing things: not at all PHQ-9 8. Moving or speaking so slowly that other people could have noticed? - Or the opposite - being so fidgety or restless that you have been moving around a lot more than usual: not at all Source: Developed by Drs. Fahad Mosley, Demetrice Wong, Luís Vidal and colleagues, with an educational janel from [employer]. Social History Living Situation History Lives With: Family Housing: House Housing Other:: Pt lives with brothers and sister Tobacco History Smoking Status: Never smoker Second Hand Smoke Exposure: No Alcohol History Alcohol Intake: Never Review of Systems Report any current symptoms Only answer those that you have currently: Past Medical History Past Medical History Have you ever been diagnosed with any of the following: Cardiology Problems Congestive Heart Failure: No Respiratory Problems Chronic Obstructive Pulmonary Disease (COPD): No Genital/Urinary Problems Renal Disease: No Endocrine Problems Diabetes Mellitus Type 1: No Diabetes Mellitus Type 2: No History of Present Illness HPI Narrative 34-year-old male patient with past medical history of 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 His stroke symptoms were dizziness, double vision, right-sided weakness, Today patient came for follow-up he mentioned that his symptoms are slowly improving, he reported that he is able to walk unassisted however he still somehow feel unbalanced. He reported that his blurry vision has been improving however he have some diplopia. His loss of sensation on the left side has been improving and now he started to feel some weird sensation with mild hand tingling. Reported he has significant improvement of his swallowing and he denied any history of choking except tickling sensation whenever he eats or drink. He reported that he still have some right side facial numbness that also has been improving. Patient was discharged from the acute rehab facility and was recommended to continue outpatient rehab and physical therapy. Up until this time he has not seen an outpatient neurologist. On review of other system patient reported that he has not seen a dentist for his mandibular bone destruction, he also reported that he feels some lump in his neck and he was told that he has a thyroid nodule and he is concerned about this nodule. Patient denied any history of loss of interest, low mood, change in appetite, or any ideas to hurt himself or others. He reported that his taking his medication regularly which include aspirin, Plavix, atorvastatin, lisinopril with no issue. 02/15/2025. Patient came to the office today because of right eye redness, greenish discharge, and mild blurry vision. He reported that because of the stroke he had decreased sensation and tingling on the affected side including the right eyelid and which he was keep rubbing at constantly. He denied any pain with eye movement, double vision, complete loss of vision, elevated blood pressure, fever or chills. Denied any similar symptoms among family members. 03/16/2025: In office appointment. Disability paperwork was filled out for patient with end date of June 2025 for an additional 3 months of disability leave. He continues difficulty with his vision, Rightward gaze is associated with worse dizziness and virtigo symptoms. He has sensory deficits on the L side with diminished sensation to temperature and pain and parasthesias on the R side. Patient has been unable to connect with neurologist nor opthalmologist because of his insurance. 05/02/25: Patient is here to follow up./ Stated that overall feels well. Has Neurology apooitment at [facility] on May 23. Dr. Covarrubias office in [place] refused patient's insurance. Endorses dyspnea on exersion. On June 19 has scheduled stress test with Dr. Snider Cardiology. for now still on Aspirin , atorvastatin and Plavix. Denies any side effects of medication.s Vitals are stable.Denies any CP,, palpitations or any other symptoms. Patient complains of left sided temperature and sensation loss with presurved touch, which is not new, and symptoms started after the stroke . patient stated that after PT it has improved a lot. He finished PT at Rehab center. we will recomend to continue with the same management. Follow up with us after Neurology appointment in May. Review of Systems Review of Systems Systems Reviewed: All systems reviewed, normal except as documented Objective/Exam Narrative Physical exam: GENERAL: no acute distress, AAO x3, well nourished. HEENT: Head AT/ NC. Mucous membranes moist. PERRL. NECK: Supple, no lymphadenopathy, no carotid bruits. CARDIOVASCULAR: RRR. Normal S1/S2, No m/r/g. No pitting edema of bilateral LEs. RESPIRATORY: CTAB. No wheezing, rhonchi, crackles. GASTROINTESTINAL: Abdomen soft, non tender no palpable masses. Bowel sounds present in all 4 quadrants. MUSCULOSKELETAL:? No cyanosis or edema, no visible joint swelling. NEUROLOGICAL: CN II-XII grossly intact. No focal deficits. Sensation decreased on R side of the face and left side of the bosy , particularly on R arm and lateral side of the back. PSYCHIATRIC: Awake and alert, not agitated, normal mood and affect. INTEGUMENTARY: No obvious rashes, no jaundice, normal turgor. Assessment & Plan Diagnosis / Problem List (1) Stroke: Status: Acute Qualifiers: CVA mechanism: unspecified Qualified Code(s): I63.9 - Cerebral infarction, unspecified Assessment & Plan: Patient is 34 years old with no risk factors for stroke developed brainstem stroke. Brain MRI showed 7 mm acute infarct right brainstem, medulla level head and neck CT angio showed no significant neck arterial stenosis and no cerebral large vessel occlusion. Of the workup including EMILY, telemetry monitoring for 5 days, polycythemia vera, homocystinemia, hypercoagulability panel, antiphospholipid panel, all are negative. He continues to work with PT Plan: ? Referral to outpatient neurologist Dr. Covarrubias in [place], declined his insurance, Patient has upcoming appointment in [facility] with neurology ? Referral to outpatient physical therapy ? Referral to genetic counseling ? Referral to the software development project manager Dr. Snider in [place],has upcoming NST test on Jun 19 ? Continue aspirin, Plavix, atorvastatin, - completed disability leave aperwork, will get back to work on June (2) Vertigo: Status: Acute Assessment & Plan: Persists post stroke - continues to have gait instability that is improving, he is able to tandem walk per his last PT sessions. Plan: - neurology referral , [facility] appointment - Continue with PT 2x per week (3) Bacterial conjunctivitis: Status: Acute Assessment & Plan: Right eye is improving with diminished swelling and crusting and drainage Plan: - had ophtalmology evaluation, will get paperwork faxed - continue with topical drops (4) Hypertension: Status: Acute Plan: continue Losartan Plan Plan discussed with Dr. Ladarius Beasley PGY-3 Office Procedures [facility] Level of Care Nursing/Assessment Patient Status: Established Patient Nursing Assessment/Reassessment: Medication Reconciliation, Update PMH in EMR and Vital Signs Coordination of Care: Complex Care and Chronic Disease 1-5, Complex Care/Chronic Disease 5 or more, Education Complex Pt/Fam, Ref for ancillary service and Staff clarify orders Established Patient Charge Established Patient Point Assignment: 140 Established Patient Point Charge: EP Level 4 (120-155)
== END 2025-05-02 14:26 | disposition home or self-care (01) ==
LOC: HODAHC 13:02
PROVIDERS: Supervising Provider Internal Medicine; Visit Provider Student in an Organized Health Care Education/Training Program
DX: I69.398 Other sequelae of cerebral infarction (principal); R20.8 Other disturbances of skin sensation; R26.89 Other abnormalities of gait and mobility; R06.00 Dyspnea, unspecified; H10.89 Other conjunctivitis; I10 Essential (primary) hypertension
CPT/HCPCS: 99214; G0463

== ENCOUNTER 2025-06-01 13:03 | Outpatient (AMB) | payer MEDICAID, SELFPAY ==
[2025-06-01 13:18] VITALS: BP 142/100; PULSE 92; RESP 19; TEMP 36.1; O2SAT 97; BMI 26.3
--- NOTE | 2025-06-01 13:18 | PD.RESCLINIC ---
Vital Signs 06/01/25 13:18 Height 1.63 m Height Method Stated Weight 70.023 kg Weight Measurement Method Standing Scale BMI 26.3 BP 142/100 H Blood Pressure Source Automatic Cuff Blood Pressure Location Right Upper Arm Position Sitting Respiration 19 Pulse 92 Pulse Source Monitor Temp 97.0 F Temp Source Temporal Artery Scan Pulse Oximetry (%) 97 Oxygen Delivery Method Room Air Allergies/Meds Allergies & Medications Allergies No Known Allergies Allergy (Verified 06/01/25 13:19) Medication Reconciliation aspirin 81 mg tablet 81 mg PO QDAY 1 month #30 tabs 11/02/24 [Rx Confirmed 06/01/25] atorvastatin 80 mg tablet 80 mg PO QPM 1 month #30 tabs 11/02/24 [Rx Confirmed 06/01/25] blood pressure monitor (Blood Pressure Kit) #1 ea 11/06/24 [Rx Confirmed 06/01/25] clopidogrel 75 mg tablet (Plavix) 75 mg PO QDAY 02/15/25 [History Confirmed 06/01/25] amoxicillin 875 mg-potassium clavulanate 125 mg tablet 1 tab PO BID #14 tabs 04/19/25 [Rx Confirmed 06/01/25] losartan 25 mg tablet 25 mg PO QDAY 1 month #30 tabs 05/02/25 [Rx Confirmed 06/01/25] MA Intake Visit Data Collection New Patient or Established: Established Patient (seen at [facility] within 3 years) Seen by Clinical Staff ONLY (RN/MA): No Pain Present Currently: No Pain scale:: 0 Pain Scale Used: Johnston-Knapp/Numerical Knocker Off Required: No PCP or OBGYN visit in last 3 months: Yes Do You Feel Safe at Home: Yes Authorities Contacted: N/A Smoking Status Smoking Status: Never smoker Immunization / Flu Flu Vaccine in the Last 12 Months: No Flu Vaccine Exclusion Criteria: Refused by Patient Past Medical History Past Medical History CARDIAC: Negative Congestive Heart Failure RESPIRATORY: Negative Chronic Obstructive Pulmonary Disease (COPD) GENITOURINARY: Negative Renal Disease ENDOCRINE: Negative Diabetes Mellitus Type 1 or Diabetes Mellitus Type 2 Social History SMOKING STATUS: Smoking status: Never smoker SECOND HAND EXPOSURE: second hand exposure: No ALCOHOL: Alcohol Intake: Never HOUSING: Housing: House LIVES WITH: Lives With: Family Patient Portal Questionaires PHQ-9 PHQ-2 Over the last 2 weeks, how often have you been bothered by any of the following problems? 1. Little interest or pleasure in doing things: not at all PHQ-9 8. Moving or speaking so slowly that other people could have noticed? - Or the opposite - being so fidgety or restless that you have been moving around a lot more than usual: not at all Source: Developed by Drs. Fahad Mosley, Demetrice Wong, Luís Vidal and colleagues, with an educational janel from [employer]. Social History Living Situation History Lives With: Family Housing: House Housing Other:: Pt lives with brothers and sister Tobacco History Smoking Status: Never smoker Second Hand Smoke Exposure: No Alcohol History Alcohol Intake: Never Domestic Abuse History Do You Feel Safe at Home: Yes Review of Systems Report any current symptoms Only answer those that you have currently: Past Medical History Past Medical History Have you ever been diagnosed with any of the following: Cardiology Problems Congestive Heart Failure: No Respiratory Problems Chronic Obstructive Pulmonary Disease (COPD): No Genital/Urinary Problems Renal Disease: No Endocrine Problems Diabetes Mellitus Type 1: No Diabetes Mellitus Type 2: No History of Present Illness HPI Narrative 34-year-old male patient with past medical history of 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 His stroke symptoms were dizziness, double vision, right-sided weakness, Today patient came for follow-up he mentioned that his symptoms are slowly improving, he reported that he is able to walk unassisted however he still somehow feel unbalanced. He reported that his blurry vision has been improving however he have some diplopia. His loss of sensation on the left side has been improving and now he started to feel some weird sensation with mild hand tingling. Reported he has significant improvement of his swallowing and he denied any history of choking except tickling sensation whenever he eats or drink. He reported that he still have some right side facial numbness that also has been improving. Patient was discharged from the acute rehab facility and was recommended to continue outpatient rehab and physical therapy. Up until this time he has not seen an outpatient neurologist. On review of other system patient reported that he has not seen a dentist for his mandibular bone destruction, he also reported that he feels some lump in his neck and he was told that he has a thyroid nodule and he is concerned about this nodule. Patient denied any history of loss of interest, low mood, change in appetite, or any ideas to hurt himself or others. He reported that his taking his medication regularly which include aspirin, Plavix, atorvastatin, lisinopril with no issue. 02/15/2025. Patient came to the office today because of right eye redness, greenish discharge, and mild blurry vision. He reported that because of the stroke he had decreased sensation and tingling on the affected side including the right eyelid and which he was keep rubbing at constantly. He denied any pain with eye movement, double vision, complete loss of vision, elevated blood pressure, fever or chills. Denied any similar symptoms among family members. 03/16/2025: In office appointment. Disability paperwork was filled out for patient with end date of June 2025 for an additional 3 months of disability leave. He continues difficulty with his vision, Rightward gaze is associated with worse dizziness and virtigo symptoms. He has sensory deficits on the L side with diminished sensation to temperature and pain and parasthesias on the R side. Patient has been unable to connect with neurologist nor opthalmologist because of his insurance. 05/02/25: Patient is here to follow up./ Stated that overall feels well. Has Neurology apooitment at [facility] [[email or web address]] on May 23. Dr. Covarrubias office in [place] refused patient's insurance. Endorses dyspnea on exersion. On June 19 has scheduled stress test with Dr. Snider Cardiology. for now still on Aspirin , atorvastatin and Plavix. Denies any side effects of medication.s Vitals are stable.Denies any CP,, palpitations or any other symptoms. Patient complains of left sided temperature and sensation loss with presurved touch, which is not new, and symptoms started after the stroke . patient stated that after PT it has improved a lot. He finished PT at Rehab center. we will recomend to continue with the same management. Follow up with us after Neurology appointment in May. 06/01/25: Patient here for follow up. He is doing well. Requesting a note to return to work on Jun 16 and to extend his disability until then. He endorses some vertigo with movement. Patient is cleared to return to work. He denies any new symptoms. Will continue to see his neurologist in [place]. Review of Systems Review of Systems Systems Reviewed: All systems reviewed, normal except as documented Objective/Exam Narrative Physical exam: General: Alert and oriented x3. No acute distress, cooperative HEENT: NCAT, No JVD noted. Mucosa moist. Pupils are equal and reactive to light bilaterally Cardiovascular: Normal S1 and S2. Regular rate and rhythm. Respiratory: Lungs are clear to auscultation bilaterally. No wheezing or crackles heard. Abdomen: Soft, nontender, not distended, normal bowel sounds. Skin: Warm to touch, dry, no rashes noted Musculoskeletal: No gross injuries. Able to move all 4 extremities. No pitting edema Neuro: Alert and oriented x3. No focal neuro deficits. Slow stand to rise due to the vertigo. Strenght 4/5 in LLE Psych: Normal affect and mood Assessment & Plan Diagnosis / Problem List (1) Stroke: Status: Acute Qualifiers: CVA mechanism: unspecified Qualified Code(s): I63.9 - Cerebral infarction, unspecified Assessment & Plan: Patient is 34 years old with no risk factors for stroke developed brainstem stroke. Brain MRI showed 7 mm acute infarct right brainstem, medulla level head and neck CT angio showed no significant neck arterial stenosis and no cerebral large vessel occlusion. Of the workup including EMIYL, telemetry monitoring for 5 days, polycythemia vera, homocystinemia, hypercoagulability panel, antiphospholipid panel, all are negative. PT is now completed. Requesting to return to work. Plan: ? continue to follow with neurologist in [place] ? Referral to the aquarist Dr. Snider in [place],has upcoming NST test on Jun 19 ? Continue aspirin, Plavix, atorvastatin, - extended disability leave paperwork until Jun 16 2024 Plan Plan discussed with Dr. Ladarius Rene PGY2 Office Procedures [facility] Level of Care Nursing/Assessment Patient Status: Established Patient Nursing Assessment/Reassessment: Medication Reconciliation, Update PMH in EMR and Vital Signs Coordination of Care: Complex Care and Chronic Disease 1-5, Education Complex Pt/Fam, Consent,records obtained, informed consent, Lab and Imaging orders, Results/Orders obtained and Staff clarify orders Established Patient Charge Established Patient Point Assignment: 110 Established Patient Point Charge: Level 3 (80-115)
== END 2025-06-01 14:02 | disposition home or self-care (01) ==
LOC: HODAHC 13:03
PROVIDERS: Supervising Provider Internal Medicine
DX: Z09 Encounter for follow-up examination after completed treatment for conditions other than malignant neoplasm (principal); Z86.73 Personal history of transient ischemic attack (TIA), and cerebral infarction without residual deficits
CPT/HCPCS: 99213; G0463

== ENCOUNTER 2025-06-03 05:58 | Emergency (ER) | payer MEDICAID, SELFPAY ==
[2025-06-03 05:59] VITALS: BP 170/131; PULSE 83; RESP 18; TEMP 36.6; O2SAT 96; BMI 25.7
[2025-06-03 06:22] VITALS: BP 154/111; PULSE 90; RESP 17; O2SAT 98
--- NOTE | 2025-06-03 06:24 | EDNOTE_ITS ---
ED Abdominal Pain RME/HPI General Chief Complaint: Abdominal Pain Stated complaint: LOWER BACK PAIN, RIGHT SIDE ABDOMINAL PAIN Time seen by provider: 06/03/25 06:23 Arrival date/time: 06/03/25 05:58 RME / HPI RME / HPI narrative: See [facility] for Dr. Velasquez's HPI documentation. Related Data Home Medications ?Medication ?Instructions ?Recorded ?Confirmed clopidogrel 75 mg tablet (Plavix) 75 mg PO QDAY 06/01/25 Previous Rx's ?Medication ?Instructions ?Recorded aspirin 81 mg tablet 81 mg PO QDAY 1 month #30 ta bs 11/02/24 atorvastatin 80 mg tablet 80 mg PO QPM 1 month #30 tab s 11/02/24 blood pressure monitor (Blood #1 ea 11/06/24 Pressure Kit) amoxicillin 875 mg-potassium 1 tab PO BID #14 tabs 12/06 clavulanate 125 mg tablet losartan 25 mg tablet 25 mg PO QDAY 1 month #30 ta bs 05/02/25 Allergies Allergy/AdvReac Type Severity Reaction Status Date / Time No Known Allergies Allergy Verified 06/01/25 13:19 Review of Systems Review of Systems Systems Reviewed: All systems reviewed, normal except as documented Past Medical History Past Medical History NEUROLOGIC: Positive Cerebrovascular Accident (October 2023) CARDIAC: Positive Hypercholesterolemia and Hypertension; Negative Cardiac Disorders or Congestive Heart Failure RESPIRATORY: Negative Chronic Obstructive Pulmonary Disease (COPD) or Asthma GENITOURINARY: Positive Kidney Stones; Negative Renal Disease ENDOCRINE: Negative Diabetes Mellitus Type 1 or Diabetes Mellitus Type 2 HEMATOLOGIC: Negative Sickle Cell Disease Social History SMOKING STATUS: Never smoker SECOND HAND EXPOSURE: No SUBSTANCE USE: does not use ED Exam Narrative Physical exam: See [facility] for Dr. Velasquez's physical exam documentation. Course Quality Measures none Orders Category Date Time Status CT Screening NOW Care 06/03/25 06:[address] abdomen pelvis wo con Stat Exams 06/03/25 07:42 Completed Amylase Stat Lab 06/03/25 06:27 Completed Bilirubin,Direct Stat Lab 06/03/25 06:27 Completed CBC Stat Lab 06/03/25 06:27 Completed CMP [Comprehensive Metabolic Panel] Stat Lab 06/03/25 06:27 Completed Lipase Stat Lab 06/03/25 06:27 Completed Magnesium Stat Lab 06/03/25 06:27 Completed UA, C/S IF [Urinalysis, C/S if Indicated] Stat Lab 06/03/25 06:49 Completed Ketorolac Inj [Toradol Inj] Med 06/03/25 06:24 Discontinued 30 mg IVP X1 ONE Morphine* Inj Med 06/03/25 06:24 Discontinued 4 mg IV X1 ONE Ondansetron Inj [Zofran Inj] Med 06/03/25 06:24 Discontinued 4 mg IVP X1 ONE Sodium Chloride 0.9% 1000 ml [Ns] 1,000 ml Med 06/03/25 06:24 Discontinued IV 999 mls/hr Vital Signs Vital signs: Vital Signs Temperature 97.8 F 06/03/25 05:59 Pulse Rate 83 06/03/25 05:59 Respiratory Rate 18 06/03/25 05:59 Blood Pressure 170/131 H 06/03/25 05:59 Pulse Oximetry (%) 96 06/03/25 05:59 Oxygen Delivery Method Room Air 06/03/25 05:59 Abdominal Pain MDM MDM Narrative MDM Narrative:: This section includes all my notes and documentations, including HPI, PE, and ED course. Alcides Velasquez MD HPI: 34-year-old male here with a couple hour history of RLQ abdominal pain with vomiting. No fever. No difficulty urinating or hematuria. No other complaints. ROS: All negative except as documented in HPI. Physical Exam: General: Alert and oriented. In obvious pain. Eyes: Conjunctivae and lids clear. ENT: No nasal congestion. Neck: Supple. Heart: RRR. Lungs: No respiratory distress. Good air movement. No rhonchi, wheezing, rales. Abdomen: Soft and nontender. Normal bowel sounds. No distension. No rebound or guarding. Back: No CVA tenderness. Skin: Warm and dry. Neuro: Alert and oriented X 3. I reviewed all diagnostic test results: My review of the abdominal CT report is 2 mm calculus in bladder. Blood tests and urine tests remarkable for hematuria. At this point, diagnoses include: Past kidney stone. Treatment here included: IVF Toradol 30 mg IV Morphine 4 mg IV Zofran 4 mg IV He felt completely better. Recommended outpatient care. Based on my best medical judgment, made decision no further evaluation or treatment indicated at this time. Patient understands and agrees to the discharge instructions customized and printed, see below. Discharge Instructions from Dr. Velasquez printed for you: 1. After evaluation, your severe pain was due to passing kidney stone. 2. Fortunately, you passed it. So you shouldn't have any more pain. See attached handout on past kidney stones. 3. To flush your kidneys, increase oral fluid and maintain clear urine. If dark or yellow, increase oral fluid. 4. Seek immediate medical care with return of the pain or with any concerns. Alcides Velasquez MD Patient data External records reviewed:: [facility] previous records (Per chart review, patient was seen here on 04/19/25 for otitis externa.) Clinical information provided by:: patient Social determinants that could affect healthcare access:: none Patient has the following chronic illnesses:: CVA, HTN, HLD How is presenting disease/condition affected by chronic disease/condition?: uneffected by Evaluation data The following diagnostics were reviewed and interpreted by me:: lab results and radiology exam(s) Lab and/or radiology exams considered but not ordered:: none Interpretation Summary: I reviewed all diagnostic test results: My review of the abdominal CT report is 2 mm calculus in bladder. Blood tests and urine tests remarkable for hematuria. Medications / Prescriptions Medications or Prescriptions considered but not ordered:: none Medication administrations:: Medication Administration History Discontinued Medications Sodium Chloride (Ns) 1,000 mls @ 999 mls/hr IV .Q1H1M ONE Stop: 06/03/25 07:24 Last Infusion: 06/03/25 10:11 Dose: Infused Documented By: Admin: 06/03/25 06:36 Dose: 999 mls/hr Documented By: ALTAF Ketorolac Tromethamine (Ketorolac Inj 30 Mg/Ml Vial) 30 mg IVP X1 ONE Stop: 06/03/25 06:25 Last Admin: 06/03/25 06:37 Dose: 30 mg Documented By: BR Morphine Sulfate (Morphine Sulf Inj 4 Mg/Ml Vial) 4 mg IV X1 ONE Stop: 06/03/25 06:25 Last Admin: 06/03/25 06:37 Dose: 4 mg Documented By: ALTAF Ondansetron HCl (Ondansetron Inj 2 Mg/Ml Inj 2 Ml) 4 mg IVP X1 ONE; Protocol Stop: 06/03/25 06:25 Last Admin: 06/03/25 06:37 Dose: 4 mg Documented By: ALTAF IVF Toradol 30 mg IV Morphine 4 mg IV Zofran 4 mg IV Consultations Consultation(s) initiated? (list below): No Diagnosis Differential diagnosis abdominal pain: acute appendicitis, calculus of kidney, constipation, diverticulitis, gastroenteritis, pancreatitis and small bowel obstruction Most likely diagnosis given after review of the tests above:: Passed kidney stone Admission Indicated Admission indicated?: not indicated Explain why admission is indicated or not indicated:: With significant improvement and no condition needing emergent intervention, there was no indication for admission. Admission Request Was there a request for admission?: No Disposition Plan Disposition Plan: Discharge Discharge Attestation Discharge Attestation: The patient and all family members were given an opportunity to ask questions and understood the discharge instructions. Discharge instructions specifically effects, indications for sooner follow up or return to the emergency department, and the expected course of current diagnosis. Patient condition: Stable Discharge Plan Plan Patient Disposition: HOME (Self Care) Prescriptions/Referrals Prescriptions/Med Rec: No Action clopidogrel [Plavix] 75 mg tablet 75 mg PO QDAY losartan 25 mg tablet 25 mg PO QDAY 30 Days Qty: 30 1RF atorvastatin 80 mg tablet 80 mg PO QPM 30 Days Qty: 30 2RF aspirin 81 mg tablet 81 mg PO QDAY 30 Days Qty: 30 2RF (DME) blood pressure monitor [Blood Pressure Kit] Kit See Rx Instructions .Route Qty: 1 0RF Rx Instructions: As directed amoxicillin-pot clavulanate 875-125 mg tablet 1 tab PO BID Qty: 14 0RF Referrals: No Primary/Family,Physician [Primary Care Provider] - In 1 week Problem List Clinical Impression: Kidney stone Patient/Caregiver Discharge Instructions Discharge Activity: activity as tolerated Education Materials: ED Kidney Stone, Passed Additional Instructions: Discharge Instructions from Dr. Velasquez printed for you: 1. After evaluation, your severe pain was due to passing kidney stone. 2. Fortunately, you passed it. So you shouldn't have any more pain. See attached handout on past kidney stones. 3. To flush your kidneys, increase oral fluid and maintain clear urine. If dark or yellow, increase oral fluid. 4. Seek immediate medical care with return of the pain or with any concerns. Print Language: Japanese Stand Alone Forms: Ginny Award Info., Patient Portal Info Letter
[2025-06-03] MEDS: SODIUM CHLORIDE 0.9% 1000 ML 1,000 ML 999 ML IV (06:36)
[2025-06-03] MEDS: KETOROLAC INJ 30 MG/ML VIAL IVP (06:37)
[2025-06-03] MEDS: ONDANSETRON INJ 2 MG/ML INJ 2 ML 4 MG IVP (06:37)
[2025-06-03] MEDS: MORPHINE SULF INJ 4 MG/ML VIAL IV (06:37)
[2025-06-03 06:45] LABS: Basophils # (Auto) 0.0 Thou/mm3 (0.0-0.2); Basophils % (Auto) 0 % (0-2.5); Eosinophils # (Auto) 0.1 Thou/mm3 (0.0-0.5); Eosinophils % (Auto) 1 % (0-10); Hematocrit 46.6 % (41.0-53.0); Hemoglobin 16.8 g/dL (13.5-16.0); Immature Granulocytes Auto 0.02 Thou/mm3 (0.00-0.00); Lymphocytes # (Auto) 1.9 Thou/mm3 (1.0-4.8); Lymphocytes % (Auto) 20 % (10-50); Mean Corpuscular HGB Conc 36.1 g/dl (31.0-37.0); Mean Corpuscular Hemoglobin 31.3 pg (25.0-35.0); Mean Corpuscular Volume 87 fL (80-100); Monocytes # (Auto) 0.8 Thou/mm3 (0.0-0.8); Monocytes % (Auto) 9 % (0-12); Neutrophils # (Auto) 6.2 Thou/mm3 (1.8-7.7); Neutrophils % (Auto) 69 % (37-80); Nucleated Red Blood Cell # 0.00 Thou/mm3 (0.00-0.00); Nucleated Red Blood Cell % 0 /100 WBC (0); Platelet Count 286 Thou/mm3 (140-440); RDW Standard Deviation 37.6 fL (35.1-43.9); Red Blood Count 5.37 Miln/mm3 (4.50-5.90); White Blood Count 9.1 Thou/mm3 (3.8-10.6)
[2025-06-03 07:12] LABS: Collection Type, Urine Clean Catch; Squamous Epithelial Cell,Urine 0 /hpf (0-5)
[2025-06-03 07:17] VITALS: BP 125/88; PULSE 82; RESP 18; TEMP 36.7; O2SAT 96
[2025-06-03 07:27] LABS: Bilirubin,Urine Negative (Negative); Blood,Urine 3+ (Negative); Color,Urine Lt-Yellow (Lt Yel-Yel); Culture Indicated,Urine Not Indicated; Glucose, Urine Negative (Negative); Ketones,Urine Negative (Negative); Leukocyte Esterase,Urine Negative (Negative); Nitrite,Urine Negative (Negative); PH,Urine 6.0 (5.0-7.0); Protein,Urine Trace (Neg - Trace); RBC,Urine 37 /hpf (0-3); Specific Gravity,Urine 1.023 (1.001-1.035); Urobilinogen,Urine Negative mg/dL (0.0-1.0); WBC,Urine 1 /hpf (0-5)
[2025-06-03 07:28] LABS: Clarity,Urine Hazy (Clear/Hazy)
--- NOTE | 2025-06-03 07:42 | XR_ITS ---
Examination: CT abdomen and pelvis without contrast. Coronal 3-D reconstructions. Sagittal 2-D reconstructions. Date and time of exam: June 03, 2025, 0800 hours INDICATIONS: Right-sided abdominal pain and back pain today CTDI: vol (mGy): 7.29 DLP: (mGycm): 432 Technique: Axial images of the abdomen have been obtained, 3 mm slice thickness Intravenous contrast material has not been administered. Low dose protocols were performed. One or more of the following dose reduction techniques were used; automated exposure control, adjustment of the mA and/or KV according to patient size, use of iterative reconstruction technique. Findings: No focal liver or splenic lesions No gallstones No pancreatic or adrenal mass Bilateral renal calculi, the largest in the right kidney 7 mm Minimal bilateral hydronephrosis, no ureteral calculi but 2 mm calculus is present in the urinary bladder, likely passed from one of the kidneys Aorta normal size No bowel obstruction Small fat-containing umbilical hernia Normal appendix No prostatomegaly Intact osseous structures IMPRESSION: Multiple bilateral renal calculi Minimal bilateral hydronephrosis, no ureteral calculi 2 mm calculus in the urinary bladder
--- NOTE | 2025-06-03 07:51 | PC.NURSE ---
pt escorted to CT scan at this time
[2025-06-03 08:09] LABS: Alanine Aminotransferase 44 U/L (10-49); Albumin, Serum 4.7 gm/dL (3.5-5.0); Albumin/Globulin Ratio 1.6 (1.2-2.2); Alkaline Phosphatase 94 U/L (46-116); Anion Gap 10 (7-16); Aspartate Amino Transferase 24 U/L (0-34); BUN/Creatinine Ratio 9 Ratio (12-20); Bilirubin,Direct 0.2 mg/dL (0.0-0.3); Bilirubin,Total 0.6 mg/dL (0.3-1.2); Blood Urea Nitrogen 12 mg/dL (9-23); Calcium 9.4 mg/dL (8.3-10.6); Calcium (Corrected) 9.4 mg/dL (8.5-10.1); Carbon Dioxide 23.8 mMol/L (20.0-31.0); Chloride 105 mMol/L (98-107); Creatinine (Component) 1.4 mg/dL (0.6-1.3); Estimated Creatinine Clearance 61.7 mL/min (>60); Globulin 3.0 gm/dL (2.3-3.5); Glucose 135 mg/dL (74-106); Lipase 38 U/L (12-53); Magnesium 2.0 mg/dL (1.6-2.6); Osmolality,Calculated 279 (275-295); Potassium 3.8 mMol/L (3.4-5.1); Sodium 139 mMol/L (136-145); Total Protein 7.7 gm/dL (5.7-8.2); eGFR > 60 See Note
[2025-06-03 09:56] VITALS: BP 123/81; PULSE 79; RESP 14; TEMP 36.6; O2SAT 97
[2025-06-03 10:00] LABS: Amylase 65 U/L (30-118)
== END 2025-06-03 10:34 | disposition home or self-care (01) ==
PROVIDERS: Emergency Provider Emergency Medicine
DX: N20.0 Calculus of kidney (principal); N21.0 Calculus in bladder
CPT/HCPCS: 36415; 74176; 80053; 81001; 82150; 82248; 83690; 83735; 85025; 96361; 96374; 99284; J1885; J2270; J2405; J7030